=== PATIENT | male | born 1940 | race Caucasian/White ===

== ENCOUNTER 2021-03-17 09:16 | Emergency (ER) | payer MEDICARE ==
[~2021-03-17] VITALS: Ht 185.4 cm; Wt 108.8 kg
[~2021-03-17 09:16] MED LIST: ASPI-587 PO; ATOR10TA66 PO; ATRV10T PO; CLNZ.5T PO; CLPD75T PO; GLIM4TAB PO; GLYB5TAB6 PO; LISI10TA2 PO; MECL-106 PO; MTF500T PO; Meclizine Hcl PO; PRM25T PO; SENN1TAB76 PO; SERT50TA PO
--- NOTE | 2021-03-17 09:43 | ED General ---
General Chief Complaint: General Problems/Pain Stated Complaint: WEAKNESS Source of Information: Patient, EMS Exam Limitations: No Limitations History of Present Illness Date Seen by Provider: Mar 17, 2021 Time Seen by Provider: 09:15 Initial Comments Patient is a 80-year-old male who presents to the emergency department today with a chief complaint of bilateral lower extremity weakness. Patient states this started rather acutely a couple of days ago. He had accompanying low back pain. He states the back pain is worse with sitting in his chair. He has no back pain currently. He denies any numbness to his legs, denies loss of bowel or bladder function. He states he is able to void spontaneously. Denies any upper respiratory tract symptoms, no cough, no shortness of breath, no chest pain. No abdominal pain, nausea, vomiting or diarrhea. He does have daily medications for diabetes and takes Plavix, he cannot recall what that is for. He has no headache currently. He chews tobacco, does not smoke. Does not have any recent trauma. No recent infections. He is not Covid vaccinated. All other review of systems reviewed and negative except as stated. Timing/Duration: 1-2 Days Severity: Severe Associated Systoms: Weakness (bilateral lower extremity weakness) Allergies and Home Medications Allergies Coded Allergies: No Known Drug Allergies (Unverified , 01/22/10) Patient Home Medication List Home Medication List Reviewed: Yes Atorvastatin Calcium (Atorvastatin Calcium) 10 Mg Tablet, 10 MG PO HS, (Reported) Entered as Reported by: FOSTER COLES on 08/06/14 0944 Clonazepam (KlonoPIN TABLET) 0.5 Mg Tab, 0.5 MG PO BID Prescribed by: OJ BARRY on 08/15/142049 Clopidogrel Bisulfate (Plavix Tablet) 75 Mg Tab, 75 MG PO DAILY Prescribed by: OJ BARRY on 08/15/142049 Metformin Hcl (Metformin 500 Mg) 500 Mg Tab, 500 MG PO BID@,17 Prescribed by: OJ BARRY on 08/15/142049 Prednisone (Prednisone) 10 Mg Tab.ds.pk, 10 MG PO DAILY Prescribed by: ROBERT WANG on 03/17/21 1315 Promethazine Hcl (Phenergan Tab) 25 Mg Tab, 25 MG PO AC Prescribed by: TONJA HOLM on 08/17/14 1523 Senna (Senokot S Tablet) 1 Ea Tablet, 1 EA PO BID Prescribed by: OJ BARRY on 08/15/142049 Tramadol HCl (Tramadol HCl) 50 Mg Tablet, 50 MG PO Q6H PRN for PAIN Prescribed by: ROBERT WANG on 03/17/21 1316 Review of Systems Review of Systems Constitutional: see HPI EENTM: no symptoms reported Respiratory: no symptoms reported Cardiovascular: no symptoms reported Gastrointestinal: no symptoms reported Genitourinary: no symptoms reported Musculoskeletal: muscle weakness Skin: no symptoms reported Psychiatric/Neurological: No Symptoms Reported All Other Systems Reviewed Negative Unless Noted: Yes Past Zebufuu-Xnohoj-Zynetf Hx Patient Social History Tobacco Use?: Yes Smokeless Tobacco Frequency: Current Everyday User Use of E-Cig and/or Vaping dev: No Substance use?: No Alcohol Use?: No Pt feels they are or have been: No Immunizations Up To Date PED Vaccines UTD: No Influenza Vaccine Up-to-Date: No; Not Current First/Initial COVID19 Vaccinat: no Second COVID19 Vaccination Gurmeet: no Past Medical History Hypertension Reproductive Disorders: No Sexually Transmitted Disease: No HIV/AIDS: No Diabetes, Non-Insulin dep Glaucoma Family Medical History Patient reports no known family medical history. No Pertinent Family Hx Physical Exam Vital Signs Vital Signs - First Documented 03/17/21 09:16 Temp 37.5 Pulse 85 Resp 25 B/P (MAP) 117/43 (67) Pulse Ox 96 O2 Delivery Room Air Capillary Refill : Height, Weight, BMI Height: 6'0.00" Weight: 198lbs. 9.0oz. [id number]; BMI Method:Stated General Appearance: No Apparent Distress, WD/WN Eyes: Bilateral Eye Normal Inspection, Bilateral Eye PERRL, Bilateral Eye EOMI HEENT: Other (Significantly carious teeth, multiple missing teeth, lots of chewing tobacco noted in the oropharynx) Neck: Normal Inspection Respiratory: Lungs Clear, Normal Breath Sounds, No Accessory Muscle Use, No Respiratory Distress Cardiovascular: Regular Rate, Rhythm, Normal Peripheral Pulses Gastrointestinal: Normal Bowel Sounds, Non Tender, Soft Back: Normal Inspection, No Vertebral Tenderness Extremity: Normal Capillary Refill, Normal Inspection, Normal Range of Motion Neurologic/Psychiatric: Alert, Oriented x3, Normal 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 1+ patellar DTR on the right difficult to obtain the left. I am unable to get Achilles reflexes bilaterally. He is able to straight leg raise but he has a significant difficulty with flexing at the knees.) Skin: Normal Color, Warm/Dry Focused Exam Lactate Level 03/17/21 09:25: Lactic Acid Level 2.43*H 03/17/21 11:10: Lactic Acid Level 2.34*H Lactic Acid Level Laboratory Tests Test 03/17/21 09:25 03/17/21 11:10 Lactic Acid Level 2.43 MMOL/L (0.50-2.00) *H 2.34 MMOL/L (0.50-2.00) *H Progress/Results/Core Measures Suspected Sepsis SIRS Temperature: Pulse: Respiratory Rate: Laboratory Tests 03/17/21 09:25: White Blood Count 12.9H Blood Pressure / Mean: 03/17/21 09:25: Lactic Acid Level 2.43*H 03/17/21 11:10: Lactic Acid Level 2.34*H Laboratory Tests 03/17/21 09:25: Creatinine 0.97, Platelet Count 208, Total Bilirubin 1.0 03/17/21 11:10: INR Comment 1.1 Results/Orders Lab Results Laboratory Tests Test 03/17/21 09:25 03/17/21 11:10 Range/Units White Blood Count 12.9 H 4.3-11.0 10^3/uL Red Blood Count 3.51 L 4.30-5.52 10^6/uL Hemoglobin 12.3 L 13.3-17.7 g/dL Hematocrit 37 L 40-54 % Mean Corpuscular Volume 105 H 80-99 fL Mean Corpuscular Hemoglobin 35 H 25-34 pg Mean Corpuscular Hemoglobin Concent 34 32-36 g/dL Red Cell Distribution Width 16.5 H 10.0-14.5 % Platelet Count 208 130-400 10^3/uL Mean Platelet Volume 11.2 9.0-12.2 fL Immature Granulocyte % (Auto) 0 % Neutrophils (%) (Auto) 25 L 42-75 % Lymphocytes (%) (Auto) 69 H 12-44 % Monocytes (%) (Auto) 5 0-12 % Eosinophils (%) (Auto) 1 0-10 % Basophils (%) (Auto) 0 0-10 % Neutrophils # (Auto) 3.2 1.8-7.8 10^3/uL Lymphocytes # (Auto) 8.9 H 1.0-4.0 10^3/uL Monocytes # (Auto) 0.6 0.0-1.0 10^3/uL Eosinophils # (Auto) 0.1 0.0-0.3 10^3/uL Basophils # (Auto) 0.1 0.0-0.1 10^3/uL Immature Granulocyte # (Auto) 0.0 0.0-0.1 10^3/uL Percent Immature Platelet Fraction 5.2 0.0-7.6 % Erythrocyte Sedimentation Rate 14 0-30 MM/HR Sodium Level 131 L 135-145 MMOL/L Potassium Level 3.9 3.6-5.0 MMOL/L Chloride Level 99 98-107 MMOL/L Carbon Dioxide Level 18 L 21-32 MMOL/L Anion Gap 14 5-14 MMOL/L Blood Urea Nitrogen 6 L 7-18 MG/DL Creatinine 0.97 0.60-1.30 MG/DL Estimat Glomerular Filtration Rate 79 BUN/Creatinine Ratio 6 Glucose Level 88 70-105 MG/DL Lactic Acid Level 2.43 *H 2.34 *H 0.50-2.00 MMOL/L Calcium Level 8.4 L 8.5-10.1 MG/DL Corrected Calcium 8.2 L 8.5-10.1 MG/DL Total Bilirubin 1.0 0.1-1.0 MG/DL Aspartate Amino Transf (AST/SGOT) 35 H 5-34 U/L Alanine Aminotransferase (ALT/SGPT) 17 0-55 U/L Alkaline Phosphatase 74 40-136 U/L C-Reactive Protein High Sensitivity 0.74 H 0.00-0.50 MG/DL Total Protein 7.0 6.4-8.2 GM/DL Albumin 4.3 3.2-4.5 GM/DL Prothrombin Time 14.4 12.2-14.7 SEC INR Comment 1.1 0.8-1.4 Activated Partial Thromboplast Time 28 24-35 SEC My Orders Orders - ROBERT WANG MD Cbc With Automated Diff (03/17/21 09:38) Comprehensive Metabolic Panel (03/17/21 09:38) Blood Culture (03/17/21 09:38) Sputum Culture (03/17/21 09:38) Urinalysis (03/17/21 09:38) Urine Culture (03/17/21 09:38) Protime With Inr (03/17/21 09:38) Partial Thromboplastin Time (03/17/21 09:38) Chest 1 View, Ap/Pa Only (03/17/21 09:38) Ed Iv/Invasive Line Start (03/17/21 09:38) Ed Iv/Invasive Line Start (03/17/21 09:38) Vital Signs Adult Sepsis Patie Q15M (03/17/21 09:38) O2 (03/17/21 09:38) Remove Rings In Anticipation O (03/17/21 09:38) Lactic Acid Analyzer (03/17/21 09:38) Hs C Reactive Protein (03/17/21 09:38) Ct Lumbar Spine Wo (03/17/21 09:38) Ns Iv 1000 Ml (Sodium Chloride 0.9%) (03/17/21 11:01) Mri Lumbar Spine W/O Contrast (03/17/21 11:03) Erythrocyte Sedimentation Rate (03/17/21 11:30) Hs C Reactive Protein (03/17/21 11:30) Vital Signs/I&O 03/17/21 09:16 Temp 37.5 Pulse 85 Resp 25 B/P (MAP) 117/43 (67) Pulse Ox 96 O2 Delivery Room Air Capillary Refill : Progress Note #1: Time: 11:28 Progress Note Pathologist called about patient's peripheral smear - he has some atypical lymphs and a a high ANC. she recommends further studies on the blood to rule out a myeloproliferative disorder - at the very least a repeat CBC Progress Note #2: Time: 12:59 Progress Note Patient reevaluated, after MRI. He is able to dorsiflex his left foot quite strongly at this point strength is 5/5. Quadriceps muscle strength is 5/5 hamstrings 5/5. He is able to slightly move the right foot 1/5. Quadriceps 5/5 on the right hamstrings 4/5. Sensation remains intact. This is completely different than my initial evaluation of the patient. He has had no medications. I am uncertain as to if this is because of effort or time. He was able to turn in the bed, move to the side and stand with some effort. MRI of the lumbar spine shows severe multilevel spinal canal stenosis with impingement of the thecal sac. He also has bilateral foraminal stenosis that is graded as "severe". I do not think he has cauda equina syndrome. He is not incontinent nor does he have acute urinary retention. I am going to put him on a dose of steroids. I have advised him that he will need to monitor his blood sugar, he states he does not have a blood sugar monitor but he can get one from Dr. Weiss. Tramadol for pain in his back. I am going to give him some names of neurosurgeons in [place]. He will also need to follow-up with Dr. Weiss. Diagnostic Imaging Diagonstic Imaging: Xray, CT Comments [facility] [place] [place] NAME: DESHAWN POE [employer] REC#: [id number] PT STATUS: REG ER : 1940 PHYSICIAN: ROBERT WANG MD ADMIT DATE: 03/17/21/ER Draft Date of Exam:03/17/21 CHEST 1 VIEW, AP/PA ONLY Indication: Weakness, constipation. Comparison: 06/19/2013 Findings: Single view of the chest demonstrates cardiac enlargement and slight central vascular congestion. There is no pneumothorax or effusion. Osseous structures normal. Impression: Cardiac enlargement, slight central vascular congestion. Dictated on workstation # [id number] Dict: 03/17/21 1011 Trans: 03/17/21 1013 CV [id number] Interpreted by: DIANA SCHWARZ Electronically signed by: [facility] [place] NAME: DESHAWN POE [facility] REC#: [id number] PT STATUS: REG ER : 1940 PHYSICIAN: ROBERT WANG MD ADMIT DATE: 03/17/21/ER Draft Date of Exam:03/17/21 CT LUMBAR SPINE WO PROCEDURE: CT lumbar spine without contrast. TECHNIQUE: Multiple contiguous axial images were obtained through the lumbar spine without the use of intravenous contrast. Sagittal and coronal reformations were then performed. Auto Exposure Controls were utilized during the CT exam to meet ALARA standards for radiation dose reduction. INDICATION: Unable to ambulate, back pain, degenerative disc disease. COMPARISON: None FINDINGS: Alignment of lumbar column is normal. There is no subluxation or fracture. No osseous lesion is seen. There is no obvious inflammatory process. Multilevel degenerative disc disease and facet joint arthropathy is seen. There is multilevel foraminal and central canal stenosis. This is most severe at the L2-L3, L3-L4, and L4-L5 levels. Paraspinous soft tissues are unremarkable. There is atherosclerosis of the abdominal aorta without evidence of aneurysm. The SI joints are symmetric. IMPRESSION: 1. No traumatic malalignment or fracture. 2. No inflammatory process, mass or fluid collection. 3. Multilevel degenerative changes with above mentioned foraminal and central canal stenosis. Consider MRI for further evaluation. Dictated on workstation # [id number] Dict: 03/17/21 1012 Trans: 03/17/21 1015 CV [id number] Interpreted by: DIANA SCHWARZ Electronically signed by: LETTY [facility], [place] NAME: DESHAWN POE [facility] REC#: [id number] PT STATUS: REG ER : 1940 PHYSICIAN: ROBERT WANG MD ADMIT DATE: 03/17/21/ER Draft Date of Exam:03/17/21 MRI LUMBAR SPINE W/O CONTRAST PROCEDURE: MRI lumbar spine. TECHNIQUE: Multiplanar, multisequence MRI of the lumbar spine was performed without contrast. INDICATION: Bilateral leg weakness and low back pain. COMPARISON: Lumbar spine CT from earlier same day. FINDINGS: Straightening of the cervical spine is unchanged. There is approximately 5 mm of anterolisthesis of L5 on S1 due to severe facet arthritis. Modic type I endplate changes are present at L2-L3, L3-L4, and L4-L5. A small amount of Modic type I endplate changes are present at L5-S1. Distal thoracic cord is normal in appearance. Paravertebral musculature has mild fatty infiltration and is likely from disuse. L1-L2: Disc bulge with coexistent small central disc protrusion. Ligamentum flavum hypertrophy is present. Overall, this results in moderate spinal stenosis and moderate bilateral neural foraminal narrowing. L2-L3: Disc bulge with coexistent moderate-sized central disc extrusion that has 8 mm of inferior subligamentous extension. Facet osteoarthritis and ligamentum flavum hypertrophy is present. This results in severe mass effect on the thecal sac with extrathecal nerve root impingement. Severe right and moderate left neural foraminal narrowing. L3-L4: Disc bulge with coexistent small disc protrusion. Severe facet osteoarthritis and ligamentum flavum hypertrophy. Overall, this results in severe central spinal canal stenosis with compression of the nerve roots and severe bilateral neural foraminal narrowing. L4-L5: Central disc protrusion and intervertebral height loss result in mild central spinal canal stenosis and severe bilateral neural foraminal narrowing. L5-S1: Disc bulge and facet osteoarthritis result in severe bilateral neural foraminal narrowing. No central spinal canal narrowing. IMPRESSION: 1. No fracture within the lumbar spine. 2. Advanced multilevel degenerative changes are greatest at L2-L3 and L3-L4 where there is severe central spinal canal stenosis and compression of the nerves. 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 Decision time for Depature: 13:04 Referrals: MINESH WEISS DO (PCP/Family) Primary Care Physician Patient Instructions: Spinal Stenosis (DC) Add. Discharge Instructions: I have prescribed you some pain medication for your back, take this only as needed, every 6 hours with food. It may make you sleepy. I have prescribed you a steroid dose pack to help with your weakness. take this as directed . Steroids can increase your blood sugar dramatically. You will need to check your sugars regularly, call Dr Weiss's office about getting a monitor. You also need to [id number] with a back surgeon for further evaluation of your leg weakness which I believe is coming from compressed nerves in your spine. The [facility] is an option in [place] and Florencio are Spine doctors there. [address] [place] [address] [address] [address] [address] Weiss can also make a referral for you. You will need to have a repeat blood count done in the next 1-2 weeks to check your blood levels, as one of your counts was out of range slightly. Come back to the Emergency Department if you have sudden worsening pain in your back/legs, numbness, loss of bowel or bladder control or any other emergent, concerning symptoms. Scripts Prednisone (Prednisone) 10 Mg Tab.ds.pk 10 MG PO DAILY, #42 EA Take 6 tabs(60mg)daily,decrease by 1 tab(10mg)every other day. Prov: ROBERT WANG MD 03/17/21 Tramadol HCl (Tramadol HCl) 50 Mg Tablet 50 MG PO Q6H PRN for PAIN, #20 TAB 0 Refills Prov: ROBERT WANG MD 03/17/21 ROBERT WANG MD Mar 17, 2021 09:43
[2021-03-17 10:13] LABS: BASOPHILS # (AUTO) 0.1 10^3/uL (0.0-0.1); BASOPHILS % (AUTO) 0 % (0-10); EOSINOPHILS # (AUTO) 0.1 10^3/uL (0.0-0.3); EOSINOPHILS % (AUTO) 1 % (0-10); HEMATOCRIT 37 % (40-54); HEMOGLOBIN 12.3 g/dL (13.3-17.7); LYMPHOCYTES # (AUTO) 8.9 10^3/uL (1.0-4.0); LYMPHOCYTES % (AUTO) 69 % (12-44); MEAN CORPUSCULAR HEMOGLOBIN 35 pg (25-34); MEAN CORPUSCULAR HGB CONC 34 g/dL (32-36); MEAN CORPUSCULAR VOLUME 105 fL (80-99); MEAN PLATELET VOLUME 11.2 fL (9.0-12.2); MONOCYTES # (AUTO) 0.6 10^3/uL (0.0-1.0); MONOCYTES % (AUTO) 5 % (0-12); NEUTROPHILS # (AUTO) 3.2 10^3/uL (1.8-7.8); NEUTROPHILS % (AUTO) 25 % (42-75); PLATELET COUNT 208 10^3/uL (130-400); WHITE BLOOD COUNT 12.9 10^3/uL (4.3-11.0)
--- NOTE | 2021-03-17 10:13 | Diagnostic Imaging Report ---
Indication: Weakness, constipation. Comparison: 06/19/2013 Findings: Single view of the chest demonstrates cardiac enlargement and slight central vascular congestion. There is no pneumothorax or effusion. Osseous structures normal. Impression: Cardiac enlargement, slight central vascular congestion. Dictated by: Dictated on workstation # [id number]
[2021-03-17 10:16] LABS: ALBUMIN 4.3 GM/DL (3.2-4.5); POTASSIUM 3.9 MMOL/L (3.6-5.0)
--- NOTE | 2021-03-17 10:16 | Diagnostic Imaging Report ---
PROCEDURE: CT lumbar spine without contrast. TECHNIQUE: Multiple contiguous axial images were obtained through the lumbar spine without the use of intravenous contrast. Sagittal and coronal reformations were then performed. Auto Exposure Controls were utilized during the CT exam to meet ALARA standards for radiation dose reduction. INDICATION: Unable to ambulate, back pain, degenerative disc disease. COMPARISON: None FINDINGS: Alignment of lumbar column is normal. There is no subluxation or fracture. No osseous lesion is seen. There is no obvious inflammatory process. Multilevel degenerative disc disease and facet joint arthropathy is seen. There is multilevel foraminal and central canal stenosis. This is most severe at the L2-L3, L3-L4, and L4-L5 levels. Paraspinous soft tissues are unremarkable. There is atherosclerosis of the abdominal aorta without evidence of aneurysm. The SI joints are symmetric. IMPRESSION: 1. No traumatic malalignment or fracture. 2. No inflammatory process, mass or fluid collection. 3. Multilevel degenerative changes with above mentioned foraminal and central canal stenosis. Consider MRI for further evaluation. Dictated by: Dictated on workstation # [id number]
[2021-03-17 10:17] LABS: CALCIUM 8.4 MG/DL (8.5-10.1)
[2021-03-17 10:22] LABS: CREATININE SERUM 0.97 MG/DL (0.60-1.30)
[2021-03-17] MEDS ORDERED: NS IV 1000 ML 1,000 ML IV STA (11:01)
[2021-03-17 11:33] LABS: INR 1.1 (0.8-1.4); PROTHROMBIN TIME PATIENT 14.4 SEC (12.2-14.7)
--- NOTE | 2021-03-17 12:15 | Diagnostic Imaging Report ---
PROCEDURE: MRI lumbar spine. TECHNIQUE: Multiplanar, multisequence MRI of the lumbar spine was performed without contrast. INDICATION: Bilateral leg weakness and low back pain. COMPARISON: Lumbar spine CT from earlier same day. FINDINGS: Straightening of the cervical spine is unchanged. There is approximately 5 mm of anterolisthesis of L5 on S1 due to severe facet arthritis. Modic type I endplate changes are present at L2-L3, L3-L4, and L4-L5. A small amount of Modic type I endplate changes are present at L5-S1. Distal thoracic cord is normal in appearance. Paravertebral musculature has mild fatty infiltration and is likely from disuse. L1-L2: Disc bulge with coexistent small central disc protrusion. Ligamentum flavum hypertrophy is present. Overall, this results in moderate spinal stenosis and moderate bilateral neural foraminal narrowing. L2-L3: Disc bulge with coexistent moderate-sized central disc extrusion that has 8 mm of inferior subligamentous extension. Facet osteoarthritis and ligamentum flavum hypertrophy is present. This results in severe mass effect on the thecal sac with extrathecal nerve root impingement. Severe right and moderate left neural foraminal narrowing. L3-L4: Disc bulge with coexistent small disc protrusion. Severe facet osteoarthritis and ligamentum flavum hypertrophy. Overall, this results in severe central spinal canal stenosis with compression of the nerve roots and severe bilateral neural foraminal narrowing. L4-L5: Central disc protrusion and intervertebral height loss result in mild central spinal canal stenosis and severe bilateral neural foraminal narrowing. L5-S1: Disc bulge and facet osteoarthritis result in severe bilateral neural foraminal narrowing. No central spinal canal narrowing. IMPRESSION: 1. No fracture within the lumbar spine. 2. Advanced multilevel degenerative changes are greatest at L2-L3 and L3-L4 where there is severe central spinal canal stenosis and compression of the nerves. Dictated by: Dictated on workstation # [id number]
[2021-03-17] MEDS ORDERED: TRM50T PO (13:15)
[2021-03-17] MEDS ORDERED: PRED10TA22 PO (13:15)
[2021-03-17 13:35] VITALS: BP 126/68
== END 2021-03-17 13:35 | disposition other institution (70) ==
LOC: EDUNIT# 09:16 → ER 09:24
DX: M48.061 Spinal stenosis, lumbar region without neurogenic claudication (principal); R53.1 Weakness; R53.81 Other malaise; E11.9 Type 2 diabetes mellitus without complications; D72.820 Lymphocytosis (symptomatic); I10 Essential (primary) hypertension; F17.290 Nicotine dependence, other tobacco product, uncomplicated; Z79.84 Long term (current) use of oral hypoglycemic drugs; Z79.01 Long term (current) use of anticoagulants
CPT/HCPCS: 36415; 71045; 72131; 72148; 80053; 83605; 85025; 85610; 85652; 85730; 86141; 87040

== ENCOUNTER 2021-03-28 10:42 | Emergency (ER) | payer MEDICARE ==
[~2021-03-28] VITALS: Ht 178 cm; Wt 108.8 kg
[~2021-03-28 10:42] MED LIST changes: +PRED10TA22 PO; +TRM50T PO
[2021-03-28] MEDS ORDERED: LACTATED RINGERS 1,000 ML IV STA (10:51)
--- NOTE | 2021-03-28 10:58 | ED Back Pain ---
General Chief Complaint: Back Problems Stated Complaint: COVID Nursing Triage Note: PT TO [facility] BY [facility] WITH CC OF BACK PAIN, DAUGHTER COVID POSITIVE AND LIVES WITH HER. DAUGHTER STATED HE HAS BEEN COUGHING BUT PT HAS NOT COUGHED AT TRIAGE, JUST COMPLAINS HE CAN'T WALK BECAUSE OF BACK PAIN, 95% ON ROOM AIR Source of Information: Patient, EMS Exam Limitations: No Limitations History of Present Illness Date Seen by Provider: Mar 28, 2021 Time Seen by Provider: 10:33 Initial Comments 80-year-old male with past medical history of chronic back pain coming in via EMS from home due to fever and back pain. His daughter lives with him and tested positive for Covid 2 days ago. He began feeling febrile at that time and has had a cough since then as well. Symptoms are mild. 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 He has been getting around with a walker and the assistance of his daughter which is unchanged. He is able to make it to the bathroom without any bowel or bladder issues. Denies any numbness anywhere including in his perineum. Is tolerating p.o. Otherwise denying any chest pain, shortness of breath, focal weakness, numbness, abdominal pain, nausea, vomiting, diarrhea, rash, trauma such as a fall, or any other concerns. Allergies and Home Medications Allergies Coded Allergies: No Known Drug Allergies (Unverified , 01/22/10) Patient Home Medication List Home Medication List Reviewed: Yes Atorvastatin Calcium (Atorvastatin Calcium) 10 Mg Tablet, 10 MG PO HS, (Reported) Entered as Reported by: FOSTER COLES on 08/06/14 0944 Clonazepam (KlonoPIN TABLET) 0.5 Mg Tab, 0.5 MG PO BID Prescribed by: OJ BARRY on 08/15/142049 Clopidogrel Bisulfate (Plavix Tablet) 75 Mg Tab, 75 MG PO DAILY Prescribed by: OJ BARRY on 08/15/142049 Metformin Hcl (Metformin 500 Mg) 500 Mg Tab, 500 MG PO BID@ Prescribed by: OJ BARRY on 08/15/142049 Prednisone (Prednisone) 10 Mg Tab.ds.pk, 10 MG PO DAILY Prescribed by: ROBERT WANG on 03/17/21 131 Promethazine Hcl (Phenergan Tab) 25 Mg Tab, 25 MG PO AC Prescribed by: TONJA HOLM on 08/17/14 152 Senna (Senokot S Tablet) 1 Ea Tablet, 1 EA PO BID Prescribed by: OJ BARRY on 08/15/142049 Tramadol HCl (Tramadol HCl) 50 Mg Tablet, 50 MG PO Q6H PRN for PAIN Prescribed by: ROBERT WANG on 03/17/21 131 Review of Systems Constitutional: chills, fever EENTM: No blurred vision Respiratory: cough; No short of breath Cardiovascular: No chest pain Gastrointestinal: No abdominal pain, No diarrhea, No nausea, No vomiting Musculoskeletal: back pain Skin: no symptoms reported Psychiatric/Neurological: No Symptoms Reported All Other Systems Reviewed Negative Unless Noted: Yes Past Otdttzx-Fdfojm-Uydwjm Hx Patient Social History Substance use?: No Immunizations Up To Date PED Vaccines UTD: No First/Initial COVID19 Vaccinat: no Second COVID19 Vaccination Gurmeet: no Past Medical History Surgeries: Yes (patient said he doesn't remember what surgery he had) Hypertension Reproductive Disorders: No Sexually Transmitted Disease: No HIV/AIDS: No Diabetes, Non-Insulin dep Glaucoma Family Medical History Patient reports no known family medical history. No Pertinent Family Hx Physical Exam Vital Signs Vital Signs - First Documented 03/28/21 10:46 Temp 38.2 Pulse 82 Resp 20 B/P (MAP) 136/67 (90) Pulse Ox 95 O2 Delivery Room Air Capillary Refill : Height, Weight, BMI Height: 6'0.00" Weight: 198lbs. 9.0oz. 90.080380hf; 34.00 BMI Method:Stated General Appearance: No Apparent Distress, WD/WN HEENT: PERRL/EOMI, Normal ENT Inspection, Pharynx Normal Neck: Full Range of Motion, Normal Inspection, Non Tender, Supple Cardiovascular: Regular Rate, Rhythm, No Edema, Normal Peripheral Pulses Respiratory: Chest Non Tender, Lungs Clear, Normal Breath Sounds, No Accessory Muscle Use, No Respiratory Distress Gastrointestinal: Normal Bowel Sounds, Non Tender, Soft; No Distended, No Guarding Back: Normal Inspection, No CVA Tenderness, No Vertebral Tenderness, Other (paraspinal tenderness in his lower back) Extremity: Normal Capillary Refill, Normal Inspection, Normal Range of Motion, Non Tender, No Calf Tenderness, No Pedal Edema Neurologic/Psychiatric: Alert, Oriented x3, No Motor/Sensory Deficits, Normal Mood/Affect, Other (5/5 strength with hip flexion/extension, knee flexion/extension, 5/5 L foot dorsiflexion and 2/5 on the right) Skin: Normal Color, Warm/Dry Lymphatic: No Adenopathy Progress/Results/Core Measures Results/Orders Lab Results Laboratory Tests Test 03/28/21 11:00 03/28/21 12:17 Range/Units White Blood Count 10.5 4.3-11.0 10^3/uL Red Blood Count 3.63 L 4.30-5.52 10^6/uL Hemoglobin 12.6 L 13.3-17.7 g/dL Hematocrit 37 L 40-54 % Mean Corpuscular Volume 101 H 80-99 fL Mean Corpuscular Hemoglobin 35 H 25-34 pg Mean Corpuscular Hemoglobin Concent 35 32-36 g/dL Red Cell Distribution Width 15.8 H 10.0-14.5 % Platelet Count 197 130-400 10^3/uL Mean Platelet Volume 10.1 9.0-12.2 fL Immature Granulocyte % (Auto) 1 % Neutrophils (%) (Auto) 45 42-75 % Lymphocytes (%) (Auto) 39 12-44 % Monocytes (%) (Auto) 14 H 0-12 % Eosinophils (%) (Auto) 1 0-10 % Basophils (%) (Auto) 0 0-10 % Neutrophils # (Auto) 4.8 1.8-7.8 10^3/uL Lymphocytes # (Auto) 4.1 H 1.0-4.0 10^3/uL Monocytes # (Auto) 1.5 H 0.0-1.0 10^3/uL Eosinophils # (Auto) 0.1 0.0-0.3 10^3/uL Basophils # (Auto) 0.0 0.0-0.1 10^3/uL Immature Granulocyte # (Auto) 0.1 0.0-0.1 10^3/uL Sodium Level 128 L 135-145 MMOL/L Potassium Level 3.7 3.6-5.0 MMOL/L Chloride Level 96 L 98-107 MMOL/L Carbon Dioxide Level 19 L 21-32 MMOL/L Anion Gap 13 5-14 MMOL/L Blood Urea Nitrogen 10 7-18 MG/DL Creatinine 0.82 0.60-1.30 MG/DL Estimat Glomerular Filtration Rate 89 BUN/Creatinine Ratio 12 Glucose Level 51 *L 70-105 MG/DL Calcium Level 8.1 L 8.5-10.1 MG/DL Corrected Calcium 8.2 L 8.5-10.1 MG/DL Total Bilirubin 1.6 H 0.1-1.0 MG/DL Aspartate Amino Transf (AST/SGOT) 40 H 5-34 U/L Alanine Aminotransferase (ALT/SGPT) 17 0-55 U/L Alkaline Phosphatase 63 40-136 U/L Troponin I < 0.028 <0.028 NG/ML B-Type Natriuretic Peptide 24.0 <100.0 PG/ML Total Protein 6.9 6.4-8.2 GM/DL Albumin 3.9 3.2-4.5 GM/DL Influenza Type A (RT-PCR) Not Detected Not Detecte Influenza Type B (RT-PCR) Not Detected Not Detecte SARS-CoV-2 RNA (RT-PCR) Detected H Not Detecte Glucometer 126 H 70-110 MG/DL My Orders Orders - CLAUS WYNN MD Bnp [place] (03/28/21 10:51) Cbc With Automated Diff (03/28/21 10:51) Comprehensive Metabolic Panel (03/28/21 10:51) Troponin I [place] (03/28/21 10:51) Influenza A And B By Pcr (03/28/21 10:51) Chest 1 View, Ap/Pa Only (03/28/21 10:51) Covid 19 Inhouse Test (03/28/21 10:51) Lactated Ringers (Lr 1000 Ml Iv Solution (03/28/21 10:51) Ed Iv/Invasive Line Start (03/28/21 10:51) Acetaminophen Tablet (Tylenol Tablet) (03/28/21 11:00) General/Regular (03/28/21 Lunch) D50w (Emergency) Syringe (Dextrose 50% 5 (03/28/21 11:45) Accucheck Stat ONCE (03/28/21 12:10) Tramadol Tablet (Ultram Tablet) (03/28/21 12:00) Medications Given in ED Current Medications Medications Dose Ordered Sig/Alhaji Route Start Time Stop Time Status Last Admin Dose Admin Acetaminophen 1,000 mg ONCE ONCE PO 03/28/21 11:00 03/28/21 11:01 DC 03/28/21 11:16 1,000 MG Dextrose 50 ml ONCE ONCE IV 03/28/21 11:45 03/28/21 11:46 DC 03/28/21 11:42 50 ML Tramadol HCl 50 mg ONCE ONCE PO 03/28/21 12:00 03/28/21 12:01 DC 03/28/21 12:18 50 MG Vital Signs/I&O 03/28/21 03/28/21 10:46 11:16 Temp 38.2 38.2 Pulse 82 Resp 20 B/P (MAP) 136/67 (90) Pulse Ox 95 O2 Delivery Room Air Blood Pressure Mean: 90 Progress Progress Note : Progress Note 80-year-old male with above history coming in due to fever for the past couple days, general weakness, and chronic low back pain. ABCs were intact and vitals were stable on presentation although he is febrile. He does have a positive contact with his daughter living with him having COVID. He was tested and was positive as well. He is not hypoxic and his chest x-ray is clear, lungs are clear on exam as well. Given Tylenol for his fever. White blood cell count is normal, creatinine normal, sodium slightly low at 128 from 131 about 11 days ago. Glucose is 51 so he was given D50 IV as well as food. In regards to this, he says he really has not eaten hardly anything in the past 2 days, he said he had essentially 1 cookie today and has not had any protein in the most 2 days. He says he believes he is diabetic and takes a pill but is unsure what pill that is. Repeat glucose is appropriately elevated. Patient feeling somewhat better. Vitals remained stable. He did tolerate p.o. and I told him to continue to check his glucose today. It made sense that it was low given he really has not had anything to eat in 2 days. I did order him a lunch tray and he ate a turkey sandwich which should help keep his sugar elevated beyond the D50 he received. I believe he is stable for discharge with outpatient follow-up given he lives with his daughter who is also COVID positive and continues to take care of him. He was sent home with strict return precautions. I once again recommended he call the spinal surgeon from [place] to schedule an appointment as soon as possible. On reassessment prior to him leaving, the patient was saying he feels "so much better". Likely related to his fever going down. Diagnostic Imaging Diagonstic Imaging: Xray Plain Films/CT/US/NM/MRI: chest Comments NAME: DESHAWN POE MED REC#: [id number] PT STATUS: REG ER : 1940 PHYSICIAN: CLAUS WYNN MD ADMIT DATE: 03/28/21/ER Draft Date of Exam:03/28/21 CHEST 1 VIEW, AP/PA ONLY INDICATION: Covid positive room mate, weakness, fever. TECHNIQUE: Single view chest 11:09 AM. CORRELATION STUDY: 03/17/2021 FINDINGS: The heart size, mediastinal configuration and pulmonary vascularity are within normal limits. The lungs are slightly hyperinflated but overall are clear with no consolidating infiltrate. There is no significant effusion or pneumothorax. Cervical thoracic spinal fixation hardware. IMPRESSION: 1. Negative for acute abnormality of the chest. Dictated on workstation # [id number] Dict: 03/28/21 1136 Trans: 03/28/21 1137 DO [id number] Interpreted by: ROGER BAKER DO Electronically signed by: Departure Impression Primary Impression: COVID-19 Additional Impressions: Hypoglycemia Back pain Qualified Codes: M54.50 - Low back pain, unspecified; G89.29 - Other chronic pain Disposition: 01 HOME, SELF-CARE Condition: Stable Departure-Patient Inst. Decision time for Depature: 12:41 Referrals: MINESH WEISS DO (PCP/Family) Primary Care Physician Patient Instructions: COVID-19 (DC), Low Blood Sugar in People With Diabetes Add. Discharge Instructions: Please be sure to eat 3 meals a day with a good protein source in each meal because your blood sugar was low. Please take your blood sugar at least 3 times today to be sure it continues to be a normal number. Signs of low blood sugar include worsening weakness and fatigue, although these can be symptoms of COVID which you are positive as well. Take tylenol 1000mg every 6-8 hours for fever and body aches related to COVID. Come back to the ER if you start feeling very short of breath or have other concerns. Please call the spinal surgeon in [place] to schedule an appointment as soon as possible given your low back pain with your spinal stenosis seen on the MRI that was done here 11 days ago. The [facility] is an option in [place] - [place] Nichols and Florencio are Spine doctors there. Call today to make an appointment DEEPAK. [address] [address] [address] Weiss can also make a referral for you. CLAUS WYNN MD Mar 28, 2021 10:58
[2021-03-28] MEDS ORDERED: ACETAMINOPHEN 500 MG TAB (TYLENOL) PO ONE (11:00)
[2021-03-28 11:11] LABS: BASOPHILS % (AUTO) 0 % (0-10); EOSINOPHILS # (AUTO) 0.1 10^3/uL (0.0-0.3); EOSINOPHILS % (AUTO) 1 % (0-10); HEMATOCRIT 37 % (40-54); HEMOGLOBIN 12.6 g/dL (13.3-17.7); LYMPHOCYTES # (AUTO) 4.1 10^3/uL (1.0-4.0); LYMPHOCYTES % (AUTO) 39 % (12-44); MEAN CORPUSCULAR HEMOGLOBIN 35 pg (25-34); MEAN CORPUSCULAR HGB CONC 35 g/dL (32-36); MEAN CORPUSCULAR VOLUME 101 fL (80-99); MEAN PLATELET VOLUME 10.1 fL (9.0-12.2); MONOCYTES # (AUTO) 1.5 10^3/uL (0.0-1.0); MONOCYTES % (AUTO) 14 % (0-12); NEUTROPHILS # (AUTO) 4.8 10^3/uL (1.8-7.8); NEUTROPHILS % (AUTO) 45 % (42-75); PLATELET COUNT 197 10^3/uL (130-400); WHITE BLOOD COUNT 10.5 10^3/uL (4.3-11.0)
[2021-03-28 11:23] LABS: ALBUMIN 3.9 GM/DL (3.2-4.5)
[2021-03-28 11:24] LABS: CHLORIDE 96 MMOL/L (98-107); POTASSIUM 3.7 MMOL/L (3.6-5.0); SODIUM 128 MMOL/L (135-145)
[2021-03-28 11:25] LABS: CALCIUM 8.1 MG/DL (8.5-10.1)
[2021-03-28 11:26] LABS: TOTAL PROTEIN 6.9 GM/DL (6.4-8.2)
[2021-03-28 11:27] LABS: CARBON DIOXIDE 19 MMOL/L (21-32)
[2021-03-28 11:28] LABS: BILIRUBIN,TOTAL 1.6 MG/DL (0.1-1.0)
[2021-03-28 11:29] LABS: ALKALINE PHOSPHATASE 63 U/L (40-136)
[2021-03-28 11:30] LABS: CREATININE SERUM 0.82 MG/DL (0.60-1.30); GFR ESTIMATED 89
[2021-03-28 11:31] LABS: BUN/CREATININE RATIO 12
[2021-03-28 11:33] LABS: ALANINE AMINOTRANSFERASE 17 U/L (0-55)
[2021-03-28 11:34] LABS: GLUCOSE 51 MG/DL (70-105)
--- NOTE | 2021-03-28 11:37 | Diagnostic Imaging Report ---
INDICATION: Covid positive room mate, weakness, fever. TECHNIQUE: Single view chest 11:09 AM. CORRELATION STUDY: 03/17/2021 FINDINGS: The heart size, mediastinal configuration and pulmonary vascularity are within normal limits. The lungs are slightly hyperinflated but overall are clear with no consolidating infiltrate. There is no significant effusion or pneumothorax. Cervical thoracic spinal fixation hardware. IMPRESSION: 1. Negative for acute abnormality of the chest. Dictated by: Dictated on workstation # [id number]
[2021-03-28] MEDS ORDERED: DEXTROSE 50% 50 ML (IMS) SYR IV ONE (11:45)
[2021-03-28 14:39] VITALS: BP 99/62
== END 2021-03-28 14:35 | disposition home or self-care (01) ==
LOC: ER 10:42
DX: U07.1 COVID-19 (principal); E11.649 Type 2 diabetes mellitus with hypoglycemia without coma; M54.50 Low back pain, unspecified; I10 Essential (primary) hypertension; Z79.84 Long term (current) use of oral hypoglycemic drugs; Z79.01 Long term (current) use of anticoagulants
CPT/HCPCS: 36415; 71045; 80053; 82947; 83880; 84484; 85025; 87636

== ENCOUNTER 2021-04-03 21:38 | Inpatient (IN) | payer MEDICARE ==
[~2021-04-03] VITALS: Ht 188 cm; Wt 88.4 kg
--- NOTE | 2021-04-03 21:46 | ED General ---
General Chief Complaint: General Problems/Pain Stated Complaint: WEAKNESS Source of Information: Patient Exam Limitations: No Limitations History of Present Illness Date Seen by Provider: Apr 03, 2021 Time Seen by Provider: 21:44 Initial Comments To ER by EMS from home with reports of cough and general weakness. This will be his third visit this month for general weakness. He tested positive for Covid during his last visit. Today would be day 8 of Covid symptoms. He does feel short of breath. He has some chronic low back pain which is causing weakness. He has been told twice to call spine surgery at [place] for follow-up as he has had MRI done here. He states that he still has not called them for an appointment. Timing/Duration: 1-2 Days Severity: Moderate Associated Systoms: Cough, Nausea/Vomiting, Weakness Allergies and Home Medications Allergies Coded Allergies: No Known Drug Allergies (Unverified , 01/22/10) Patient Home Medication List Home Medication List Reviewed: Yes Atorvastatin Calcium (Atorvastatin Calcium) 10 Mg Tablet, 10 MG PO HS, (Reported) Entered as Reported by: FOSTER COLES on 08/06/14 0944 Clonazepam (KlonoPIN TABLET) 0.5 Mg Tab, 0.5 MG PO BID Prescribed by: OJ BARRY on 08/15/142049 Clopidogrel Bisulfate (Plavix Tablet) 75 Mg Tab, 75 MG PO DAILY Prescribed by: OJ BARRY on 08/15/142049 Metformin Hcl (Metformin 500 Mg) 500 Mg Tab, 500 MG PO BID@07,17 Prescribed by: OJ BARRY on 08/15/142049 Prednisone (Prednisone) 10 Mg Tab.ds.pk, 10 MG PO DAILY Prescribed by: ROBERT WANG on 03/17/21 1315 Promethazine Hcl (Phenergan Tab) 25 Mg Tab, 25 MG PO AC Prescribed by: TONJA HOLM on 08/17/14 1523 Senna (Senokot S Tablet) 1 Ea Tablet, 1 EA PO BID Prescribed by: OJ BARRY on 08/15/142049 Tramadol HCl (Tramadol HCl) 50 Mg Tablet, 50 MG PO Q6H PRN for PAIN Prescribed by: ROBERT WANG on 03/17/21 1316 Review of Systems Review of Systems Constitutional: see HPI EENTM: see HPI Respiratory: see HPI, cough Cardiovascular: no symptoms reported Genitourinary: no symptoms reported Musculoskeletal: see HPI Skin: no symptoms reported Psychiatric/Neurological: No Symptoms Reported Past Vffjngk-Dvyabl-Evhtay Hx Immunizations Up To Date PED Vaccines UTD: No First/Initial COVID19 Vaccinat: no Second COVID19 Vaccination Gurmeet: no Third COVID19 Vaccination Date: no Past Medical History Surgery/Hospitalization HX: HX OF BACK PAIN Surgeries: Yes (patient said he doesn't remember what surgery he had) Hypertension Reproductive Disorders: No Sexually Transmitted Disease: No HIV/AIDS: No Diabetes, Non-Insulin dep Glaucoma Family Medical History Patient reports no known family medical history. No Pertinent Family Hx Physical Exam Vital Signs Vital Signs - First Documented 04/03/21 21:38 Temp 36.1 Pulse 110 Resp 18 B/P (MAP) 127/78 (94) Pulse Ox 97 O2 Delivery Room Air Capillary Refill : Height, Weight, BMI Height: 6'0.00" Weight: 198lbs. 9.0oz. 90.607836ud; 34.00 BMI Method:Stated General Appearance: No Apparent Distress, Chronically ill, Other (His oxygen saturation is 95 to 99% on room air. He is tachycardic with a heart rate of 110. Alert and oriented little hard of hearing) Neck: Full Range of Motion, Normal Inspection Respiratory: No Accessory Muscle Use, No Respiratory Distress Cardiovascular: Regular Rate, Rhythm, Normal Peripheral Pulses Gastrointestinal: Non Tender, Soft Back: Other (Erythema, tenderness with about a stage II sacral pressure ulcer.) Extremity: Normal Capillary Refill, Normal Inspection Neurologic/Psychiatric: Alert, Oriented x3 Skin: Normal Color, Warm/Dry Focused Exam Sepsis Stage: Severe Sepsis Lactate Level 04/03/21 22:20: Lactic Acid Level 5.19*H Time of Focused Exam: 22:58 Respiratory: Crackles Cardiovascular: Regular Rate, Rhythm, Normal Peripheral Pulses Capillary Refill: NONE Skin: normal color, warm/dry Lactic Acid Level Laboratory Tests Test 04/03/21 22:20 Lactic Acid Level 5.19 MMOL/L (0.50-2.00) *H Within 3hrs of presentation: Admin fluids, Admin 30ml/kg IBW due to BMI>30, Admin ABX, Blood cultures prior to ABX's, Focus exam, Lactate level Progress/Results/Core Measures Suspected Sepsis SIRS Temperature: Pulse: Respiratory Rate: Laboratory Tests 04/03/21 22:00: White Blood Count 18.3H Blood Pressure / Mean: 04/03/21 22:20: Lactic Acid Level 5.19*H Laboratory Tests 04/03/21 22:00: Creatinine 0.81, INR Comment 1.3, Platelet Count 216, Total Bilirubin 2.0H Results/Orders Lab Results Laboratory Tests Test 04/03/21 22:00 04/03/21 22:20 Range/Units White Blood Count 18.3 H 4.3-11.0 10^3/uL Red Blood Count 3.41 L 4.30-5.52 10^6/uL Hemoglobin 11.7 L 13.3-17.7 g/dL Hematocrit 34 L 40-54 % Mean Corpuscular Volume 101 H 80-99 fL Mean Corpuscular Hemoglobin 34 25-34 pg Mean Corpuscular Hemoglobin Concent 34 32-36 g/dL Red Cell Distribution Width 15.7 H 10.0-14.5 % Platelet Count 216 130-400 10^3/uL Mean Platelet Volume 12.0 9.0-12.2 fL Immature Granulocyte % (Auto) 1 % Neutrophils (%) (Auto) 57 42-75 % Lymphocytes (%) (Auto) 29 12-44 % Monocytes (%) (Auto) 13 H 0-12 % Eosinophils (%) (Auto) 0 0-10 % Basophils (%) (Auto) 0 0-10 % Neutrophils # (Auto) 10.4 H 1.8-7.8 10^3/uL Lymphocytes # (Auto) 5.3 H 1.0-4.0 10^3/uL Monocytes # (Auto) 2.4 H 0.0-1.0 10^3/uL Eosinophils # (Auto) 0.1 0.0-0.3 10^3/uL Basophils # (Auto) 0.1 0.0-0.1 10^3/uL Immature Granulocyte # (Auto) 0.2 H 0.0-0.1 10^3/uL Neutrophils % (Manual) 61 % Lymphocytes % (Manual) 18 % Monocytes % (Manual) 10 % Metamyelocytes % 3 % Band Neutrophils 1 % Atypical Lymphocytes 2 % Reactive Lymphocytes 1 % Blast Cells 4 % Smudge Cells SLIGHT Polychromasia SLIGHT Poikilocytosis SLIGHT Anisocytosis SLIGHT Microcytosis SLIGHT Prothrombin Time 16.4 H 12.2-14.7 SEC INR Comment 1.3 0.8-1.4 Sodium Level 130 L 135-145 MMOL/L Potassium Level 3.3 L 3.6-5.0 MMOL/L Chloride Level 94 L 98-107 MMOL/L Carbon Dioxide Level 17 L 21-32 MMOL/L Anion Gap 19 H 5-14 MMOL/L Blood Urea Nitrogen 13 7-18 MG/DL Creatinine 0.81 0.60-1.30 MG/DL Estimat Glomerular Filtration Rate 89 BUN/Creatinine Ratio 16 Glucose Level 156 H 70-105 MG/DL Calcium Level 8.4 L 8.5-10.1 MG/DL Corrected Calcium 8.7 8.5-10.1 MG/DL Total Bilirubin 2.0 H 0.1-1.0 MG/DL Aspartate Amino Transf (AST/SGOT) 37 H 5-34 U/L Alanine Aminotransferase (ALT/SGPT) 15 0-55 U/L Alkaline Phosphatase 64 40-136 U/L B-Type Natriuretic Peptide 82.5 <100.0 PG/ML Total Protein 6.8 6.4-8.2 GM/DL Albumin 3.6 3.2-4.5 GM/DL Procalcitonin 0.23 H <0.10 NG/ML Lactic Acid Level 5.19 *H 0.50-2.00 MMOL/L My Orders Orders - DALIA ROLDAN APRN Chest 1 View, Ap/Pa Only (04/03/21 21:44) Cbc With Automated Diff (04/03/21 21:44) Comprehensive Metabolic Panel (04/03/21 21:44) Protime With Inr (04/03/21 21:44) Bnp [place] (04/03/21 21:44) Procalcitonin (Pct) (04/03/21 21:44) Ed Iv/Invasive Line Start (04/03/21 21:44) Lactated Ringers (Lr 1000 Ml Iv Solution (04/03/21 22:00) Ibuprofen Tablet (Motrin Tablet) (04/03/21 22:00) Ua Culture If Indicated (04/03/21 22:01) Manual Differential (04/03/21 22:00) Blood Culture (04/03/21 22:13) Lactic Acid Analyzer (04/03/21 22:13) Piperacillin Sodium/Tazobactam (Zosyn Vi (04/03/21 22:15) Medications Given in ED Current Medications Medications Dose Ordered Sig/Lahaji Route Start Time Stop Time Status Last Admin Dose Admin Ibuprofen 800 mg ONCE ONCE PO 04/03/21 22:00 04/03/21 22:01 DC 04/03/21 21:53 800 MG Piperacillin Sod/ Tazobactam Sod 4.5 gm/Sodium Chloride 100 ml @ 200 mls/hr ONCE ONCE IV 04/03/21 22:15 04/03/21 22:44 DC 04/03/21 22:41 200 MLS/HR Vital Signs/I&O 04/03/21 21:38 Temp 36.1 Pulse 110 Resp 18 B/P (MAP) 127/78 (94) Pulse Ox 97 O2 Delivery Room Air Capillary Refill : Departure Communication (Admissions) Family Conversation NAME: DESHAWN OPE MED REC#: [id number] PT STATUS: REG ER : 05/13/1939 PHYSICIAN: DALIA ROLDAN APRN ADMIT DATE: 04/03/21/ER Draft Date of Exam:04/03/21 CHEST 1 VIEW, AP/PA ONLY EXAMINATION: Portable chest. COMPARISON: Prior from March 28, 2021. INDICATION: Covid positive. Cough. FINDINGS: There are patchy airspace opacities within the mid right lung and at the left lung base compatible with pneumonia. There appear to be some prior calcified granulomas at the left lung base. There is no effusion. There is flattening of the diaphragm and there are chronic pulmonary interstitial changes. Heart size is stable. There are prior operative changes involving the cervical spine. IMPRESSION: Background features of apparent COPD with new airspace opacities within the mid right lung and left lung base compatible with superimposed pneumonia. Dictated on workstation # [id number] Dict: 04/03/212233 Trans: 04/03/212239 [facility] [id number] Interpreted by: SOLITARIO SHAFER MD Electronically signed by: 2200-patient states that he is not been able to get out of bed to take himself to the bathroom. He states that he has a very sore bottom. Denies any pain or tingling down his legs. However his pain is confined to his low back. He states that he is able to stand up but is unable to walk because of weakness in his legs. He does have some skin breakdown, stage II pressure ulcer over the sacrum. 2256-lactic acid 5.19. He will need a 30ml/kg bolus for IBW of 73kg. 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 Referrals: MINESH WEISS DO (PCP/Family) Primary Care Physician DALIA ROLDAN APRN Apr 03, 2021 21:46
[2021-04-03] MEDS ORDERED: IBUPROFEN 800 MG (MOTRIN) TAB PO ONE (22:00)
[2021-04-03] MEDS ORDERED: LACTATED RINGERS 1,000 ML IV SCH (22:00)
[2021-04-03 22:03] LABS: BASOPHILS # (AUTO) 0.1 10^3/uL (0.0-0.1); BASOPHILS % (AUTO) 0 % (0-10); EOSINOPHILS # (AUTO) 0.1 10^3/uL (0.0-0.3); EOSINOPHILS % (AUTO) 0 % (0-10); HEMATOCRIT 34 % (40-54); HEMOGLOBIN 11.7 g/dL (13.3-17.7); LYMPHOCYTES # (AUTO) 5.3 10^3/uL (1.0-4.0); LYMPHOCYTES % (AUTO) 29 % (12-44); MEAN CORPUSCULAR HEMOGLOBIN 34 pg (25-34); MEAN CORPUSCULAR HGB CONC 34 g/dL (32-36); MEAN CORPUSCULAR VOLUME 101 fL (80-99); MONOCYTES # (AUTO) 2.4 10^3/uL (0.0-1.0); MONOCYTES % (AUTO) 13 % (0-12); NEUTROPHILS # (AUTO) 10.4 10^3/uL (1.8-7.8); NEUTROPHILS % (AUTO) 57 % (42-75); PLATELET COUNT 216 10^3/uL (130-400); WHITE BLOOD COUNT 18.3 10^3/uL (4.3-11.0)
[2021-04-03 22:15] LABS: INR 1.3 (0.8-1.4); PROTHROMBIN TIME PATIENT 16.4 SEC (12.2-14.7)
[2021-04-03] MEDS ORDERED: PIPERACILLIN SODIUM/TAZOBACTAM 4.5 GM in NS (IVPB) 100 ML IV ONE (22:15)
[2021-04-03 22:22] LABS: ALBUMIN 3.6 GM/DL (3.2-4.5); CALCIUM 8.4 MG/DL (8.5-10.1); CREATININE SERUM 0.81 MG/DL (0.60-1.30); POTASSIUM 3.3 MMOL/L (3.6-5.0); TOTAL PROTEIN 6.8 GM/DL (6.4-8.2)
[2021-04-03 22:24] LABS: ATYPICAL LYMPHOCYTES 2 %; BAND NEUTROPHILS 1 %; BLAST CELLS 4 %; LYMPHOCYTES % (MANUAL) 18 %; METAMYELOCYTES % 3 %; MONOCYTES % (MANUAL) 10 %; NEUTROPHILS % (MANUAL) 61 %; REACTIVE LYMPHOCYTES 1 %
[2021-04-03 22:25] LABS: ANISOCYTOSIS SLIGHT; MICROCYTOSIS SLIGHT; POIKILOCYTOSIS SLIGHT; POLYCHROMASIA SLIGHT
--- NOTE | 2021-04-03 22:40 | Diagnostic Imaging Report ---
EXAMINATION: Portable chest. COMPARISON: Prior from March 28, 2021. INDICATION: Covid positive. Cough. FINDINGS: There are patchy airspace opacities within the mid right lung and at the left lung base compatible with pneumonia. There appear to be some prior calcified granulomas at the left lung base. There is no effusion. There is flattening of the diaphragm and there are chronic pulmonary interstitial changes. Heart size is stable. There are prior operative changes involving the cervical spine. IMPRESSION: Background features of apparent COPD with new airspace opacities within the mid right lung and left lung base compatible with superimposed pneumonia. Dictated by: Dictated on workstation # [id number]
[2021-04-03] MEDS ORDERED: HYDROcodone/APAP 5 MG/325 MG (LORTAB) TAB PO ONE (23:15)
[2021-04-03] MEDS ORDERED: fentaNYL INJ 100 MCG/2 ML AMP IVP ONE (23:30)
[2021-04-03] MEDS ORDERED: NS W/KCL 40 MEQ/L 1,000 ML IV ONE (23:40)
[2021-04-03] MEDS ORDERED: ONDANSETRON 4 MG/2 ML (SDV) Z0FRAN IV PRN (23:45)
[2021-04-03] MEDS ORDERED: dexAMETHasone 6 MG TAB (DECADRON) PO SCH (23:58)
[2021-04-04] MEDS ORDERED: RT-ALBUTEROL HFA 8.5 GM INHALER IH SCH
[2021-04-04] MEDS: NS W/KCL 40 MEQ/L 1,000 ML IV SCH ×3 (00:09→16:09)
[2021-04-04] MEDS ORDERED: EPINEPHrine 1 MG INJECTION 4 MG in NS (IVPB) 248 ML IV SCH (00:30)
[2021-04-04] MEDS: NOREPINEPHRINE 8 MG/250 ML 250 ML IV SCH ×2 (00:35→12:07)
[2021-04-04] MEDS: VASOPRESSIN INJECTION 20 UNIT in NS (IVPB) 100 ML IV SCH ×2 (00:39→11:53)
--- NOTE | 2021-04-04 00:57 | Progress Note ---
Standard Progress Note Progress Notes/Assess & Plan Date Seen by a Provider: Apr 04, 2021 Time Seen by a Provider: 00:53 Progress/Assessment & Plan Pt admitted for extensive excoriations of groin, sacrum after sitting in same chair for many days Has elevated WBC 18, Lactate elevated up to 5, started on IV epi, for a while, Also, COVID + but SpO2 ok on RA, on IV decadron, Vanco, Zosyn admitted as cardiac stepdown will continue to hydrate, abx DIPTI NIEVES MD Apr 04, 2021 00:57
[2021-04-04] MEDS: VANCOMYCIN 1 GM/NS 250 ML IVPB IV SCH ×4 (01:26→02:28)
[2021-04-04 04:28] LABS: BASOPHILS % (AUTO) 0 % (0-10); EOSINOPHILS % (AUTO) 0 % (0-10); HEMATOCRIT 31 % (40-54); HEMOGLOBIN 10.6 g/dL (13.3-17.7); LYMPHOCYTES # (AUTO) 4.2 10^3/uL (1.0-4.0); LYMPHOCYTES % (AUTO) 30 % (12-44); MEAN CORPUSCULAR HEMOGLOBIN 34 pg (25-34); MEAN CORPUSCULAR HGB CONC 34 g/dL (32-36); MEAN CORPUSCULAR VOLUME 99 fL (80-99); MONOCYTES # (AUTO) 1.6 10^3/uL (0.0-1.0); MONOCYTES % (AUTO) 12 % (0-12); NEUTROPHILS # (AUTO) 7.9 10^3/uL (1.8-7.8); NEUTROPHILS % (AUTO) 57 % (42-75); PLATELET COUNT 154 10^3/uL (130-400); WHITE BLOOD COUNT 13.9 10^3/uL (4.3-11.0)
[2021-04-04 04:50] LABS: POTASSIUM 3.3 MMOL/L (3.6-5.0)
[2021-04-04 04:51] LABS: CALCIUM 7.6 MG/DL (8.5-10.1)
[2021-04-04] MEDS: PIPERACILLIN SODIUM/TAZOBACTAM 4.5 GM in NS (IVPB) 100 ML IV SCH ×3 (04:53→19:52)
[2021-04-04 04:55] LABS: CREATININE SERUM 0.69 MG/DL (0.60-1.30)
[2021-04-04] MEDS: inSUlin ASPART (NovoLOG) 1 UNIT/0.01 ML (CHARGE PER UNIT) SC SCH ×4 (05:24→21:00)
[2021-04-04 08:31] LABS: PHOSPHORUS 2.2 MG/DL (2.3-4.7); URIC ACID 3.6 MG/DL (2.6-7.2)
--- NOTE | 2021-04-04 08:33 | Tele-ICU Consult ---
History of Present Illness History of Present Illness Date Seen by Provider: Apr 04, 2021 Time Seen by Provider: 08:32 Date of Admission 04/03/21 History of Present Illness He is a 81-year-old male with past medical history of cervical spine surgery in the remote past, cerebellar infarct, unsteady gait apparently had an MRI of the lumbar spine for his spinal stenosis the results of which is not known. The MRI is done at the [facility] and he is advised to follow-up there but he has not made an appointment. He also has a history of Covid infection about 9 days ago during the last week's visit. Now he presented to the emergency room again with a cough and generalized weakness and found to have a elevated lactic acid level with hyponatremia. He is currently being hydrated and his lactic acid level came down. He does talk few sentences but unable to give any detailed history via video visit. I have reviewed his previous medical problems. He received extensive physical therapy and ENT evaluation in the past. 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 [facility] hematology oncology consultation is requested. His pro calcitonin is minimally elevated. Allergies and Home Medications Allergies Coded Allergies: No Known Drug Allergies (Unverified , 01/22/10) Home Medications Atorvastatin Calcium 10 Mg Tablet, 10 MG PO HS, (Reported) Clopidogrel Bisulfate 75 Mg Tablet, 75 MG PO DAILY, (Reported) Glimepiride 4 Mg Tablet, 4 MG PO DAILY, (Reported) Sennosides 8.6 Mg Tablet, 8.6-17.2 MG PO BID PRN for CONSTIPATION-5TH LINE, (Reported) Past Medical/Social/Family Hx Patient Social History Tobacco Use?: Yes Smoking Status: Former Smoker Smokeless type used: Chew Smokeless Tobacco Frequency: Current Everyday User Use of E-Cig and/or Vaping dev: No Substance use?: No Alcohol Use?: No Pt stated abuse/neglect: No Immunizations Up To Date Influenza Vaccine Up-to-Date: No; Not Current First/Initial COVID19 Vaccinat: NONE Second COVID19 Vaccination Gurmeet: no Current Status Advance Directives: No Communicates: Verbally Primary Language: Malaysian Preferred Spoken Language: Malaysian Is interpretation needed?: No Sensory deficits: Vision impairment Review of Systems Constitutional: see HPI Other ROS PER RN Focused Exam Lactate Level 04/03/21 22:20: Lactic Acid Level 5.19*H 04/04/21 05:30: Lactic Acid Level 1.05 Height, Weight, BMI Height: 6'0.00" Weight: 198lbs. 9.0oz. 90.149062fk; 25.06 BMI Method:Stated Time of Focused Exam: 22:58 Lactic Acid Level Laboratory Tests Test 04/04/21 05:30 Lactic Acid Level 1.05 MMOL/L (0.50-2.00) Exam Exam Patient acknowledged, consented, and participated in this virtual visit which was conducted using real time audio/video Vital Signs Date Time Temp Pulse Resp B/P (MAP) Pulse Ox O2 Delivery O2 Flow Rate FiO2 04/04/21 08:15 35.5 04/04/21 08:00 51 11 96/58 99 Room Air 04/04/21 07:00 53 04/04/21 04:47 96 Room Air 04/04/21 04:00 36.1 96 11 106/57 91 Room Air 04/04/21 01:30 71 16 111/69 97 Room Air 04/04/21 01:00 79 19 101/68 97 Room Air 04/04/21 01:00 81 04/04/21 00:47 95 Room Air 04/04/21 00:30 79 14 101/64 94 Room Air 04/04/21 00:15 88 17 104/62 95 Room Air 04/04/21 00:00 94 21 99/59 95 Room Air 04/03/21 23:45 99 21 83/58 95 Room Air 04/03/21 23:30 37.0 04/03/21 23:30 95 Room Air 04/03/21 23:30 37.0 04/03/21 23:19 36.5 103 18 129/82 98 Room Air 04/03/21 21:38 36.1 110 18 127/78 (94) 97 Room Air I & O 04/04/21 07:00 Intake Total 1600 ml Balance 1600 ml Height & Weight Height: 6'0.00" Weight: 198lbs. 9.0oz. 90.587709jb; 25.06 BMI Method:Stated General Appearance: No Apparent Distress, Chronically ill, Other (His oxygen saturation is 95 to 99% on room air. He is tachycardic with a heart rate of 110. Alert and oriented little hard of hearing) Neck: Full Range of Motion, Normal Inspection Respiratory: Crackles Cardiovascular: Regular Rate, Rhythm, Normal Peripheral Pulses Capillary Refill: NONE Extremity: Normal Capillary Refill, Normal Inspection Neurologic/Psychiatric: Alert, Oriented x3 Skin: Normal Color, Warm/Dry Other comments PE PER RN Results Lab Laboratory Tests 04/03/21 22:00 04/04/21 04:17 Assessment/Plan Assessment/Plan 1. Possible pneumonia causing his cough and x-ray appearances. 2. Underlying Covid19 pneumonia 3. Unsteady gait could be due to lumbar spinal stenosis based on MRI of 03/17/2021. 4. Given his high MCV needs to rule out any combined degeneration due to vitamin B12 or folate deficiency also he has other reasons to be cerebellar CVA 5 hyponatremia and hypokalemia due to possible infection. Recommendations 1. Continue IV fluids with potassium chloride and monitor electrolytes. 2. IV antibiotics per primary care physician 3. We will get vitamin B-12, folic acid, TSH, free T4 and vitamin D levels. 4. Physical therapy and Occupational Therapy 5. DVT prophylaxis and ulcer prophylaxis 6. Awaiting hematology consult Critical Care: Critically Ill Patient Time spent with patient (mins): 30 SRINIVASA OHARA MD Apr 04, 2021 08:33
[2021-04-04 09:52] LABS: BAND NEUTROPHILS 9 %; NEUTROPHILS % (MANUAL) 59 %
[2021-04-04 09:53] LABS: ATYPICAL LYMPHOCYTES 2 %; LYMPHOCYTES % (MANUAL) 13 %; MONOCYTES % (MANUAL) 10 %; REACTIVE LYMPHOCYTES 3 %
[2021-04-04 09:54] LABS: ANISOCYTOSIS SLIGHT; MICROCYTOSIS SLIGHT; POIKILOCYTOSIS SLIGHT
[2021-04-04 09:55] LABS: TOXIC GRANULATION/VACUOLAZATIO 1+
[2021-04-04 09:56] LABS: PLATELET ESTIMATE NORMAL
--- NOTE | 2021-04-04 11:20 | Occupational Therapy Eval ---
OT Evaluation-General/PLF Medical Diagnosis Admission Date Apr 03, 2021 at 22:38 Medical Diagnosis: COVID 19, general weakness, sepsis Onset Date: Apr 03, 2021 Therapy Diagnosis Therapy Diagnosis: decreased ADL status Height/Weight Height (Feet): 6 Height (Inches): 0.00 Weight (Pounds): 198 Weight (Ounces): 9.0 Precautions Precautions/Isolations: Airborne Isolation, Contact Isolation, Fall Prevention Referral Physician: Tiffany Referral Reason: Evaluation/Treatment Medical History Pertinent Medical History: CVA, DM, HTN Current History ED via EMS due to decreased intake, general weakness x4 days. Pt diagnosed with COVID-19 03/28/21 Social History Home: Single Level Current Living Status: Other Family Entry Into Home: Level Entry ADL-Prior Level of Function SCALE: Activities may be completed with or without assistive devices. 4-Vmhjgygyzi-fjdeagj completes the activity by him/herself with no assistance from a helper. 5-Set-up or Clean-up Assistance-helper sets up or cleans up; patient completes activity. [place] assists only prior to or following the activity. 4-Supervision or Touching Assistance-helper provides verbal cues and/or touching/steadying and/or contact guard assistance as patient completes activity. Assistance may be provided throughout the activity or intermittently. 3-Partial/Moderate Assistance-helper does LESS THAN HALF the effort. [place] lifts, holds or supports trunk or limbs, but provides less than half the effort. 2-Substantial/Maximal Assistance-helper does MORE THAN HALF the effort. [place] lifts or holds trunk or limbs and provides more than half the effort. 7-Nrgcasbmf-vjrhpm does ALL the effort. Patient does none of the effort to complete the activity. Or, the assistance of 2 or more helpers is required for the patient to complete the activity. If activity was not attempted, code reason: 7-Patient Refused. 9-Not Applicable-not attempted and the patient did not perform the activity before the current illness, exacerbation or injury. 10-Not Attempted due to Environmental Limitations-(lack of equipment, weather restraints, etc.). 88-Not Attempted due to Medical Conditions or Safety Concerns. ADL PLOF Comments Pt reports being IND with ADLs and functional mobility at PLOF, using a walker. Pt reports a sedentary lifestyle, indicating he doesn't move like he should. Self Care: Independent Functional Cognition: Independent DME/Equipment: Tub OT Current Status Subjective Pt in bed, wound care nurse present to clean wound and apply dressing. Pt reports 10/10 pain in buttocks Mental Status/Objective Patient Orientation: Person, Place, Situation Current Upper Extremity ROM WFL Upper Extremity Strength grossly 3+/5 ADL-Treatment On/Off Footwear (QC): 1 Toileting Hygiene (QC): 1 Other Treatments Pt in bed, OT assisted wound care nurse in cleaning wound on buttocks, and positioning of pt while applying dressing. After dressing change, pt transferred supine to sit EOB, assist x2. Pt unable to fully sit EOB due to pain in buttocks wound, rating pain 10/10, requesting to lay down. Assist x2 to return supine. Pt's O2 saturation dropped into the 80%'s with activity, increasing back into 90%'s within several seconds. Pt positioned with pillows to decrease pressure on buttocks. Post tx, pt in bed, call light in reach and all needs met, Max A with rolling, total assist supine to/from sit. Education OT Patient Education: Correct positioning, Energy conservation, Modified ADL techniques, Progress toward Goal/Update tx plan, Purpose of tx/functional activities, Rehab process Teaching Recipient: Patient Teaching Methods: Discussion Response to Teaching: Verbalize Understanding OT Group Home Goals Custom Bike Builder Goals Time Frame: Apr 25, 2021 Eating (QC): 6 Oral Hygiene (QC): 5 Toileting Hygiene (QC): 4 Shower/Bathe Self (QC): 4 Upper Body Dressing (QC): 5 Lower Body Dressing (QC): 4 On/Off Footwear (QC): 4 Additional Goals: 1-Demonstrate ADL Tasks, 2-Verbalize Understanding, 3- ImproveStrength/Elias 1=Demonstrate adherence to instructed precautions during ADL tasks. 2=Patient will verbalize/demonstrate understanding of assistive devices/modifications for ADL. 3=Patient will improve strength/tolerance for activity to enable patient to perform ADL's. OT Education/Plan Problem List/Assessment Assessment: Decreased Activ Tolerance, Decreased UE Strength, Impaired Bed Mobility, Impaired Funct Balance, Impaired I ADL's, Impaired Self-Care Skills Discharge Recommendations Plan/Recommendations: Continue POC Treatment Plan/Plan of Care Patient would benefit from OT for education, treatment and training to promote independence in ADL's, mobility, safety and/or upper extremity function for ADL's. Plan of Care: ADL Retraining, Functional Mobility, UE Funct Exercise/Act Treatment Duration: Apr 25, 2021 Frequency: 3 times per week (3-5 times per week) Estimated Hrs Per Day: .25 hour per day Agreement: Yes Rehab Potential: Guarded Time/GCodes Start Time: 10:45 Stop Time: 11:04 Total Time Billed (hr/min): 19 Billed Treatment Time 1, CAROL KEMP OT Apr 04, 2021 11:20
--- NOTE | 2021-04-04 11:37 | Physical Therapy Evaluation ---
PT Evaluation-General Medical Diagnosis Admission Date Apr 03, 2021 at 22:38 Medical Diagnosis: COVID 19, general weakness, sepsis Onset Date: Apr 03, 2021 Therapy Diagnosis Therapy Diagnosis: impaired mobility, strength, endurance Height/Weight Height (Feet): 6 Height (Inches): 0.00 Weight (Pounds): 198 Weight (Ounces): 9.0 Precautions Precautions/Isolations: Airborne Isolation, Contact Isolation, Fall Prevention Referral Physician: Tiffany Reason for Referral: Evaluation/Treatment Medical History Pertinent Medical History: CVA, DM, HTN Additional Medical History Past Medical History Surgery/Hospitalization HX: HX OF BACK PAIN Surgeries: Yes (patient said he doesn't remember what surgery he had) Hypertension Reproductive Disorders: No Sexually Transmitted Disease: No HIV/AIDS: No Diabetes, Non-Insulin dep Glaucoma Reviewed History: Yes Social History Home: Single Level Current Living Status: Other Family Entry Into Home: Level Entry Prior Prior Level of Function SCALE: Activities may be completed with or without assistive devices. 9-Hcehhgfdqx-xgpwgsl completes the activity by him/herself with no assistance from a helper. 5-Set-up or Clean-up Assistance-helper sets up or cleans up; patient completes activity. [place] assists only prior to or following the activity. 4-Supervision or Touching Assistance-helper provides verbal cues and/or touching/steadying and/or contact guard assistance as patient completes activity. Assistance may be provided throughout the activity or intermittently. 3-Partial/Moderate Assistance-helper does LESS THAN HALF the effort. [place] lifts, holds or supports trunk or limbs, but provides less than half the effort. 2-Substantial/Maximal Assistance-helper does MORE THAN HALF the effort. [place] lifts or holds trunk or limbs and provides more than half the effort. 5-Jmesdziel-ogldsi does ALL the effort. Patient does none of the effort to complete the activity. Or, the assistance of 2 or more helpers is required for the patient to complete the activity. If activity was not attempted, code reason: 7-Patient Refused. 9-Not Applicable-not attempted and the patient did not perform the activity before the current illness, exacerbation or injury. 10-Not Attempted due to Environmental Limitations-(lack of equipment, weather restraints, etc.). 88-Not Attempted due to Medical Conditions or Safety Concerns. PT Evaluation-Current Subjective Patient in bed pre tx, agrees to PT, has 8/10 pain "all over". Pt/Family Goals none stated Objective Patient Orientation: Person, Place, Situation Attachments: Broussard Catheter, IV ROM/Strength ROM Lower Extremities limited due to pain Strength Lower Extremities grossly 3/5 BLE except doesn't have dorsiflexion on the right side Sensory Vision: Wears Glasses Hearing: Functional Transfers Roll Left to Right (QC): 2 Lying to Sitting/Side of Bed(Q: 1 Attempted to get patient to sit to the side of the bed with assist of 2 but lydia salazar had too much pain and didn't quite get all the way up, his O2 dropped into the mid 80's during this. Patient layed back down and performed some LE exercises. He needs max assist for rolling. Treatment supine BLE exercises x10 (AP, HS), patient couldn't perform AP on the right side due to foot drop Assessment/Needs Patient in bed post tx with nurse call, phone, tray, all needs met, positioned on side with pillow support for pressure relief. Patient has impaired mobility, strength, endurance. He was not able to tolerate much therapy due to intense pain even with little movements like rolling. Rehab Potential: Fair PT Metal Bed Assembler Goals Metal Bed Assembler Goals PT Detention Goals Time Frame: Apr 11, 2021 Roll Left & Right (QC): 3 Sit to Lying (QC): 3 Lying-Sitting on Side/Bed(QC): 3 Sit to Stand (QC): 3 Chair/Dlh-tn-Xznkh Xfer(QC): 3 PT Plan Problem List Problem List: Activity Tolerance, Functional Strength, Safety, Balance, Gait, Transfer, Bed Mobility, ROM Treatment/Plan Treatment Plan: Continue Plan of Care Treatment Plan: Bed Mobility, Education, Functional Activity Elias, Functional Strength, Gait, Safety, Therapeutic Exercise, Transfers Treatment Duration: Apr 11, 2021 Frequency: 6 times per week Estimated Hrs Per Day: .25 hour per day Patient and/or Family Agrees t: Yes Safety Risks/Education Patient Education: Correct Positioning, Safety Issues Teaching Recipient: Patient Teaching Methods: Demonstration, Discussion Response to Teaching: Reinforcement Needed Discharge Recommendations Plan Patient will perform bed mobility and transfer training, balance and endurance training, functional strengthening, gait training, and education, to improve functional mobility and independence at home. Therapy Discharge Recommendati: 24 Hour Supervision Time/GCodes Time In: 1054 Time Out: 1104 Total Billed Treatment Time: 10 Total Billed Treatment 1 visit MITCHELL GUERRERO PT Apr 04, 2021 11:37
[2021-04-04] MEDS ORDERED: SENN-36 PO (11:59)
[2021-04-04] MEDS ORDERED: ATOR10TA66 PO (11:59)
[2021-04-04] MEDS ORDERED: CLOP75TA28 PO (11:59)
[2021-04-04] MEDS ORDERED: GLIM4TAB5 PO (11:59)
[2021-04-04] MEDS: VANCOMYCIN 1250 MG/NS 250 ML IVPB IV SCH ×2 (13:35)
[2021-04-04 13:41] LABS: FREE T4 (FREE THYROXINE) 0.95 NG/DL (0.70-1.48)
[2021-04-04] MEDS: POTASSIUM CL 10MEQ/50ML IVPB 50 ML IV SCH ×2 (16:09→18:38)
--- NOTE | 2021-04-04 18:42 | History & Physical-Hospitalist ---
History of Present Illness HPI/Chief Complaint Samuel Szymanski is an 81 year old male with PMH HTN, T2DM, HLD, who presented with weakness. He has been feeling sick for over a week. He was diagnosed with COVID on 03/28. He is not feeling short of breath. He denies fevers and chills. He denies cough. He denies chest pain. Source: patient Exam Limitations: no limitations Date Seen 04/04/21 Time Seen by a Provider: 09:45 Attending Physician Melvin Hayes MD PCP Live James DO Referring Physician Date of Admission Apr 03, 2021 at 22:38 Home Medications & Allergies Home Medications Reviewed patient Home Medication Reconciliation performed by pharmacy medication reconciliations pest control chemical technician and/or nursing. Patients Allergies have been reviewed. Allergies Allergies Coded Allergies No Known Drug Allergies (Obcmmbvioe68/15/10) Past Ckysprx-Xtphkr-Fghluo Hx Patient Social History Tobacco Use?: Yes Smoking Status: Former Smoker Smokeless type used: Chew Smokeless Tobacco Frequency: Current Everyday User Use of E-Cig and/or Vaping dev: No Substance use?: No Alcohol Use?: No Pt feels they are or have been: No Immunizations Up To Date First/Initial COVID19 Vaccinat: NONE Second COVID19 Vaccination Gurmeet: no PED Vaccines UTD: No Current Status Advance Directives: No Communicates: Verbally Primary Language: Slovak Preferred Spoken Language: Slovak Is interpretation needed?: No Sensory deficits: Vision impairment Past Medical History Hypertension Sexually Transmitted Disease: No HIV/AIDS: No Diabetes, Non-Insulin dep Glaucoma Family Medical History Patient reports no known family medical history. No Pertinent Family Hx Review of Systems Constitutional: weakness EENTM: no symptoms reported Respiratory: no symptoms reported Cardiovascular: no symptoms reported Gastrointestinal: no symptoms reported Genitourinary: no symptoms reported Musculoskeletal: no symptoms reported Skin: no symptoms reported Psychiatric/Neurological: No Symptoms Reported Physical Exam Physical Exam Vital Signs Vital Signs - First Documented 04/03/21 21:38 Temp 36.1 Pulse 110 Resp 18 B/P (MAP) 127/78 (94) Pulse Ox 97 O2 Delivery Room Air Capillary Refill : NONE Height, Weight, BMI Height: 6'0.00" Weight: 198lbs. 9.0oz. 90.969408wd; 25.06 BMI Method:Stated General Appearance: No Apparent Distress, WD/WN HEENT: PERRL/EOMI, Pharynx Normal Neck: Normal Inspection, Supple Respiratory: No Respiratory Distress, Decreased Breath Sounds Cardiovascular: Regular Rate, Rhythm, No Murmur Gastrointestinal: Normal Bowel Sounds, Non Tender, Soft Extremity: Normal Inspection, Pedal Edema Neurologic/Psychiatric: Alert, Normal Mood/Affect, Motor Weakness Skin: Normal Color, Warm/Dry Results Results/Procedures Labs Laboratory Tests 04/03/21 22:00 04/04/21 04:17 Patient resulted labs reviewed. Imaging: Reviewed Imaging Report Assessment/Plan Admission Diagnosis Severe sepsis due to pneumonia Admission Status: Inpatient Order (span 2 midnights) Reason for Inpatient Admission: IV antibiotics Assessment and Plan Severe sepsis due to pneumonia Secondary bacterial pneumonia Pneumonia due to COVID-19 Lactic acidosis Debility CXR with multifocal pneumonia COVID+ 03/28 Not requriing suppelemental oxygen Stop decadron Continue Vanc and Zosyn Blood cultures pending IV fluids PT/OT T2DM Sliding scale insulin HTN HLD Hold home meds DVT prophylaxis: Lovenox Diagnosis/Problems Diagnosis/Problems (1) Severe sepsis Status: Acute (2) PNA (pneumonia) Status: Acute (3) Pneumonia due to COVID-19 virus Status: Acute (4) Debility Status: Acute (5) Lactic acidosis Status: Acute (6) T2DM (type 2 diabetes mellitus) Status: Chronic Qualifiers: Diabetes mellitus chcf insulin use: without chcf use (7) HLD (hyperlipidemia) Status: Chronic JUJU SMALLS MD Apr 04, 2021 18:42
[2021-04-04] MEDS: ENOXAPARIN 40 MG/0.4 ML (LOVENOX) SYR SC SCH (19:52)
[2021-04-04] MEDS ORDERED: NS (IVPB) 250 ML ONE (20:49)
[2021-04-04] MEDS: NYSTATIN CREAM (MYCOSTATIN) 30 GM TUBE TP SCH (20:59)
[2021-04-05] MEDS: RT-ALBUTEROL HFA 8.5 GM INHALER IH SCH ×4 (02:40→15:21)
[2021-04-05] MEDS: NS W/KCL 40 MEQ/L 1,000 ML IV SCH ×2 (03:42→09:45)
[2021-04-05] MEDS: VANCOMYCIN 1250 MG/NS 250 ML IVPB IV SCH ×2 (03:42)
[2021-04-05] MEDS: PIPERACILLIN SODIUM/TAZOBACTAM 4.5 GM in NS (IVPB) 100 ML IV SCH ×3 (03:43→19:32)
[2021-04-05] MEDS: VASOPRESSIN INJECTION 20 UNIT in NS (IVPB) 100 ML IV SCH (03:51)
[2021-04-05] MEDS: NOREPINEPHRINE 8 MG/250 ML 250 ML IV SCH (03:51)
[2021-04-05 05:31] LABS: BASOPHILS # (AUTO) 0.1 10^3/uL (0.0-0.1); BASOPHILS % (AUTO) 0 % (0-10); EOSINOPHILS % (AUTO) 0 % (0-10); HEMATOCRIT 28 % (40-54); HEMOGLOBIN 9.3 g/dL (13.3-17.7); LYMPHOCYTES # (AUTO) 6.4 10^3/uL (1.0-4.0); LYMPHOCYTES % (AUTO) 33 % (12-44); MEAN CORPUSCULAR HEMOGLOBIN 34 pg (25-34); MEAN CORPUSCULAR HGB CONC 33 g/dL (32-36); MEAN CORPUSCULAR VOLUME 101 fL (80-99); MEAN PLATELET VOLUME 12.8 fL (9.0-12.2); MONOCYTES # (AUTO) 3.8 10^3/uL (0.0-1.0); MONOCYTES % (AUTO) 19 % (0-12); NEUTROPHILS # (AUTO) 9.2 10^3/uL (1.8-7.8); NEUTROPHILS % (AUTO) 46 % (42-75); PLATELET COUNT 174 10^3/uL (130-400); WHITE BLOOD COUNT 19.8 10^3/uL (4.3-11.0)
[2021-04-05 05:43] LABS: ALBUMIN 2.6 GM/DL (3.2-4.5)
[2021-04-05 05:44] LABS: POTASSIUM 4.5 MMOL/L (3.6-5.0)
[2021-04-05 05:45] LABS: CALCIUM 7.5 MG/DL (8.5-10.1)
[2021-04-05 05:46] LABS: TOTAL PROTEIN 4.9 GM/DL (6.4-8.2)
[2021-04-05 05:48] LABS: BILIRUBIN,TOTAL 0.8 MG/DL (0.1-1.0)
[2021-04-05 05:50] LABS: CREATININE SERUM 0.65 MG/DL (0.60-1.30)
[2021-04-05] MEDS: inSUlin ASPART (NovoLOG) 1 UNIT/0.01 ML (CHARGE PER UNIT) SC SCH ×4 (06:12→20:34)
--- NOTE | 2021-04-05 09:35 | Physical Therapy Daily Note ---
PT Daily Note-Current Subjective Patient agrees to PT. Mental Status Patient Orientation: Person, Time, Situation Transfers SCALE: Activities may be completed with or without assistive devices. 8-Wmbtndtjfv-vzcurkw completes the activity by him/herself with no assistance from a helper. 5-Set-up or Clean-up Assistance-helper sets up or cleans up; patient completes activity. [place] assists only prior to or following the activity. 4-Supervision or Touching Assistance-helper provides verbal cues and/or touching/steadying and/or contact guard assistance as patient completes activity. Assistance may be provided throughout the activity or intermittently. 3-Partial/Moderate Assistance-helper does LESS THAN HALF the effort. [place] lifts, holds or supports trunk or limbs, but provides less than half the effort. 2-Substantial/Maximal Assistance-helper does MORE THAN HALF the effort. [place] lifts or holds trunk or limbs and provides more than half the effort. 5-Utdgusruk-pkyvkm does ALL the effort. Patient does none of the effort to c omplete the activity. Or, the assistance of 2 or more helpers is required for the patient to complete the activity. If activity was not attempted, code reason: 7-Patient Refused. 9-Not Applicable-not attempted and the patient did not perform the activity before the current illness, exacerbation or injury. 10-Not Attempted due to Environmental Limitations-(lack of equipment, weather restraints, etc.). 88-Not Attempted due to Medical Conditions or Safety Concerns. Sit to Lying (QC): 4 Lying to Sitting/Side of Bed(Q: 4 Exercises Seated Therapy Exercises: Ankle pumps, Long arc quads, Hip flexion Seated Reps: 12 Assessment Patient tolerated sitting EOB and performing exercises. Patient currently on RA with SAO2 remaining >90% with activity. Patient performed bed mobility and repositioning SBA. 4 rails up with bed alarm activated. PT Equipment Maintenance Supervisor Goals Equipment Maintenance Supervisor Goals PT Mcc Goals Time Frame: Apr 11, 2021 Roll Left & Right (QC): 3 Sit to Lying (QC): 3 Lying-Sitting on Side/Bed(QC): 3 Sit to Stand (QC): 3 Chair/Bsm-ym-Gwdel Xfer(QC): 3 PT Plan Treatment/Plan Treatment Plan: Continue Plan of Care Treatment Plan: Bed Mobility, Education, Functional Activity Elias, Functional Strength, Gait, Safety, Therapeutic Exercise, Transfers Treatment Duration: Apr 11, 2021 Frequency: 6 times per week Estimated Hrs Per Day: .25 hour per day Patient and/or Family Agrees t: Yes Time/GCodes Time In: 715 Time Out: 725 Total Billed Treatment Time: 10 Total Billed Treatment 1 visit EX 10 min CINDI ANNA PT Apr 05, 2021 09:35
[2021-04-05] MEDS: NYSTATIN CREAM (MYCOSTATIN) 30 GM TUBE TP SCH ×2 (09:44→19:45)
[2021-04-05] MEDS ORDERED: polyethylene glycoL POWDER 17 GM (MIRALAX) PACK PO PRN (11:45)
--- NOTE | 2021-04-05 11:58 | Progress Note - Hospitalist ---
Subjective HPI/CC On Admission Date Seen by Provider: Apr 05, 2021 Time Seen by Provider: 09:30 Samuel Szymanski is an 81 year old male with PMH HTN, T2DM, HLD, who presented with weakness. He has been feeling sick for over a week. He was diagnosed with COVID on 03/28. He is not feeling short of breath. He denies fevers and chills. He denies cough. He denies chest pain. Subjective/Events-last exam He is feeling weak. He still has a cough. He is not short of breath. He has been eating and drinking. He denies pain. Focused Exam Lactate Level 04/03/21 22:20: Lactic Acid Level 5.19*H 04/04/21 05:30: Lactic Acid Level 1.05 Time of Focused Exam: 22:58 Objective Exam Vital Signs Vital Signs Date Time Temp Pulse Resp B/P (MAP) Pulse Ox O2 Delivery O2 Flow Rate FiO2 04/05/21 11:45 36.2 81 20 104/66 94 Room Air Capillary Refill : NONE General Appearance: No Apparent Distress, Chronically ill Respiratory: Lungs Clear, No Respiratory Distress Cardiovascular: Regular Rate, Rhythm, No Murmur Gastrointestinal: Normal Bowel Sounds, Soft Extremity: Normal Inspection, Pedal Edema Neurologic/Psychiatric: Alert, Motor Weakness Skin: Normal Color, Warm/Dry Results/Procedures Lab Laboratory Tests 04/05/21 05:15 Patient resulted labs reviewed. Imaging: Reviewed Imaging Report Assessment/Plan Assessment and Plan Assess & Plan/Chief Complaint Severe sepsis due to pneumonia Secondary bacterial pneumonia Pneumonia due to COVID-19 Lactic acidosis Debility CXR with multifocal pneumonia COVID+ 03/28 Not requriing suppelemental oxygen Stop Vanc Continue Zosyn Blood cultures with no growth Stop IV fluids PT/OT Consult social work, needs skilled placement T2DM Sliding scale insulin HTN HLD Continue home meds DVT prophylaxis: Lovenox Diagnosis/Problems Diagnosis/Problems (1) Severe sepsis Status: Acute (2) PNA (pneumonia) Status: Acute (3) Pneumonia due to COVID-19 virus Status: Acute (4) Debility Status: Acute (5) Lactic acidosis Status: Acute (6) T2DM (type 2 diabetes mellitus) Status: Chronic Qualifiers: Diabetes mellitus halfway insulin use: without truck terminal manager use (7) HLD (hyperlipidemia) Status: Chronic JUJU SMALLS MD Apr 05, 2021 11:58
[2021-04-05] MEDS ORDERED: FOLIC ACID 1 MG TAB PO NR (12:15)
[2021-04-05] MEDS ORDERED: TROUGH ORDER-PHARMACY XX NR (12:30)
[2021-04-05] MEDS: ENOXAPARIN 40 MG/0.4 ML (LOVENOX) SYR SC SCH (17:52)
[2021-04-05 18:59] VITALS: BP 101/51
[2021-04-05] MEDS ORDERED: RT-ALBUTEROL HFA 8.5 GM INHALER IH PRN (19:15)
[2021-04-05] MEDS: SENNA W/DOCUSATE (SENOKOT S) TABLET PO SCH (19:45)
[2021-04-05] MEDS: DOCUSATE SODIUM 100 MG (COLACE) CAP PO SCH (19:45)
[2021-04-05] MEDS: AtorvaSTATin TABLET 10 MG TABLET PO SCH (19:45)
[2021-04-06] MEDS: PIPERACILLIN SODIUM/TAZOBACTAM 4.5 GM in NS (IVPB) 100 ML IV SCH ×3 (04:51→20:43)
[2021-04-06 05:22] LABS: BASOPHILS # (AUTO) 0.1 10^3/uL (0.0-0.1); BASOPHILS % (AUTO) 0 % (0-10); EOSINOPHILS # (AUTO) 0.1 10^3/uL (0.0-0.3); EOSINOPHILS % (AUTO) 1 % (0-10); HEMATOCRIT 33 % (40-54); HEMOGLOBIN 10.8 g/dL (13.3-17.7); LYMPHOCYTES # (AUTO) 9.7 10^3/uL (1.0-4.0); LYMPHOCYTES % (AUTO) 47 % (12-44); MEAN CORPUSCULAR HEMOGLOBIN 34 pg (25-34); MEAN CORPUSCULAR HGB CONC 33 g/dL (32-36); MEAN CORPUSCULAR VOLUME 102 fL (80-99); MEAN PLATELET VOLUME 12.6 fL (9.0-12.2); MONOCYTES # (AUTO) 4.4 10^3/uL (0.0-1.0); MONOCYTES % (AUTO) 21 % (0-12); NEUTROPHILS # (AUTO) 6.4 10^3/uL (1.8-7.8); NEUTROPHILS % (AUTO) 31 % (42-75); PLATELET COUNT 202 10^3/uL (130-400); WHITE BLOOD COUNT 20.8 10^3/uL (4.3-11.0)
[2021-04-06 05:32] LABS: POTASSIUM 4.3 MMOL/L (3.6-5.0)
[2021-04-06 05:33] LABS: CALCIUM 7.7 MG/DL (8.5-10.1)
[2021-04-06 05:37] LABS: CREATININE SERUM 0.69 MG/DL (0.60-1.30)
[2021-04-06] MEDS: inSUlin ASPART (NovoLOG) 1 UNIT/0.01 ML (CHARGE PER UNIT) SC SCH ×4 (06:24→19:45)
[2021-04-06] MEDS ORDERED: VITAMIN D3 10 MCG (400 UNITS) TABLET PO SCH (07:00)
[2021-04-06] MEDS: SENNA W/DOCUSATE (SENOKOT S) TABLET PO SCH ×2 (07:51→20:44)
[2021-04-06] MEDS: DOCUSATE SODIUM 100 MG (COLACE) CAP PO SCH ×2 (07:51→20:44)
[2021-04-06] MEDS: CLOPIDOGREL 75 MG (PLAVIX) TABLET PO SCH (09:12)
[2021-04-06] MEDS: VITAMIN D3 10 MCG (400 UNITS) TABLET PO SCH (09:12)
[2021-04-06] MEDS: FOLIC ACID 1 MG TAB PO SCH (09:12)
[2021-04-06] MEDS: NYSTATIN CREAM (MYCOSTATIN) 30 GM TUBE TP SCH ×2 (09:13→20:44)
--- NOTE | 2021-04-06 10:42 | Progress Note - Hospitalist ---
Subjective HPI/CC On Admission Date Seen by Provider: Apr 06, 2021 Time Seen by Provider: 10:10 Samuel Szymanski is an 81 year old male with PMH HTN, T2DM, HLD, who presented with weakness. He has been feeling sick for over a week. He was diagnosed with COVID on 03/28. He is not feeling short of breath. He denies fevers and chills. He denies cough. He denies chest pain. Subjective/Events-last exam He denies pain. He denies shortness of breath. He had a bowel movement and needs to be cleaned up. Focused Exam Lactate Level 04/03/21 22:20: Lactic Acid Level 5.19*H 04/04/21 05:30: Lactic Acid Level 1.05 Time of Focused Exam: 22:58 Objective Exam Vital Signs Vital Signs Date Time Temp Pulse Resp B/P (MAP) Pulse Ox O2 Delivery O2 Flow Rate FiO2 04/06/21 07:49 Room Air 04/06/21 07:38 36.3 89 20 99/58 96 04/05/21 18:59 21 Capillary Refill : NONE General Appearance: No Apparent Distress, Chronically ill Respiratory: No Respiratory Distress, Decreased Breath Sounds Cardiovascular: Regular Rate, Rhythm, No Murmur Gastrointestinal: Normal Bowel Sounds, Non Tender, Soft Extremity: Normal Inspection, No Pedal Edema Neurologic/Psychiatric: Alert, Depressed Affect, Other (irritable) Skin: Normal Color, Warm/Dry Results/Procedures Lab Laboratory Tests 04/06/21 04:45 Patient resulted labs reviewed. Imaging: Reviewed Imaging Report Assessment/Plan Assessment and Plan Assess & Plan/Chief Complaint Secondary bacterial pneumonia Pneumonia due to COVID-19 Debility CXR with multifocal pneumonia COVID+ 03/28 Not requriing suppelemental oxygen Continue Zosyn PT/OT Consult social work, needs skilled placement T2DM Sliding scale insulin HTN HLD Continue home meds DVT prophylaxis: Lovenox Severe sepsis due to pneumonia, resolved Lactic acidosis, resolved Diagnosis/Problems Diagnosis/Problems (1) Severe sepsis Status: Resolved Resolution Date/Time: 04/06/21 @ 10:41 (2) PNA (pneumonia) Status: Acute (3) Pneumonia due to COVID-19 virus Status: Acute (4) Debility Status: Acute (5) Lactic acidosis Status: Resolved Resolution Date/Time: 04/06/21 @ 10:42 (6) T2DM (type 2 diabetes mellitus) Status: Chronic 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
[2021-04-06] MEDS: ENOXAPARIN 40 MG/0.4 ML (LOVENOX) SYR SC SCH (17:46)
[2021-04-06] MEDS: AtorvaSTATin TABLET 10 MG TABLET PO SCH (20:43)
[2021-04-07] MEDS: PIPERACILLIN SODIUM/TAZOBACTAM 4.5 GM in NS (IVPB) 100 ML IV SCH ×3 (04:50→20:07)
[2021-04-07] MEDS: VITAMIN D3 10 MCG (400 UNITS) TABLET PO SCH (04:52)
[2021-04-07] MEDS: inSUlin ASPART (NovoLOG) 1 UNIT/0.01 ML (CHARGE PER UNIT) SC SCH ×4 (05:40→21:30)
[2021-04-07 06:43] LABS: BASOPHILS % (AUTO) 0 % (0-10); EOSINOPHILS # (AUTO) 0.2 10^3/uL (0.0-0.3); EOSINOPHILS % (AUTO) 1 % (0-10); HEMATOCRIT 28 % (40-54); HEMOGLOBIN 9.3 g/dL (13.3-17.7); LYMPHOCYTES # (AUTO) 7.5 10^3/uL (1.0-4.0); LYMPHOCYTES % (AUTO) 47 % (12-44); MEAN CORPUSCULAR HEMOGLOBIN 34 pg (25-34); MEAN CORPUSCULAR HGB CONC 33 g/dL (32-36); MEAN CORPUSCULAR VOLUME 102 fL (80-99); MEAN PLATELET VOLUME 12.4 fL (9.0-12.2); MONOCYTES % (AUTO) 25 % (0-12); NEUTROPHILS # (AUTO) 4.3 10^3/uL (1.8-7.8); NEUTROPHILS % (AUTO) 27 % (42-75); PLATELET COUNT 176 10^3/uL (130-400); WHITE BLOOD COUNT 16.1 10^3/uL (4.3-11.0)
[2021-04-07 07:00] LABS: POTASSIUM 3.6 MMOL/L (3.6-5.0)
[2021-04-07 07:01] LABS: CALCIUM 7.5 MG/DL (8.5-10.1)
[2021-04-07 07:05] LABS: CREATININE SERUM 0.66 MG/DL (0.60-1.30)
[2021-04-07 07:08] LABS: EOSINOPHILS % (MANUAL) 3 %; LYMPHOCYTES % (MANUAL) 37 %; MONOCYTES % (MANUAL) 2 %; NEUTROPHILS % (MANUAL) 58 %
[2021-04-07 07:10] LABS: ANISOCYTOSIS SLIGHT; ELLIPT/OVALOCYTES SLIGHT
[2021-04-07] MEDS: DOCUSATE SODIUM 100 MG (COLACE) CAP PO SCH ×2 (07:52→19:29)
[2021-04-07] MEDS: SENNA W/DOCUSATE (SENOKOT S) TABLET PO SCH ×2 (07:52→19:29)
[2021-04-07] MEDS: CLOPIDOGREL 75 MG (PLAVIX) TABLET PO SCH (09:05)
[2021-04-07] MEDS: FOLIC ACID 1 MG TAB PO SCH (09:05)
[2021-04-07] MEDS: NYSTATIN CREAM (MYCOSTATIN) 30 GM TUBE TP SCH ×2 (09:05→21:31)
--- NOTE | 2021-04-07 11:32 | Oncology Consultation ---
Visit Information Visit Information Date of Admission Apr 03, 2021 at 22:38 Attending Physician Cecy Allen MD Admitting Physician Live James DO Chief Complaint Consulted for Leukocytosis, anemia and smudge cells in the setting of Covid pneumonia and sepsis. Interval History Mr. Szymanski is an 81 year old white man who was in and out ER a couple of times with fatigue and not doing right since 03/17/2021. He was then found to have positive Covid and patchy infiltrations on the CXR and was admitted to in- patient service on 04/03/2021. He had unremarkable CBC on 03/28/2021 while he was at ER, WBC 10.5, Hb 12.6, Hct 37, plt 197. His WBC was going higher during the hospital stay from 10.5 to 20 on 04/06/2021 with smudge cells. In the meantime, he also developed bed sore grade II. He does NOT have SOB and does not require oxygen. He is having diarrhea/loss st ool from the antibiotics. I consulted the patient on: 04/07/21 11:29 Time Seen by Provider: 16:00 Review of Systems Constitutional: see HPI Health Status Allergies Coded Allergies: No Known Drug Allergies (Unverified , 01/22/10) Home Medications Atorvastatin Calcium (Atorvastatin Calcium) 10 Mg Tablet, 10 MG PO HS, (Reported) Clopidogrel Bisulfate (Clopidogrel) 75 Mg Tablet, 75 MG PO DAILY, (Reported) Glimepiride (Glimepiride) 4 Mg Tablet, 4 MG PO DAILY, (Reported) Sennosides (Senokot) 8.6 Mg Tablet, 8.6-17.2 MG PO BID PRN for CONSTIPATION-5TH LINE, (Reported) HSI-Aozntp-Hwifzd Hx Patient Social History Smoking Status: Former Smoker Alcohol Use?: No Have you traveled recently?: No Family Medical History Significant Family History: No Pertinent Family Hx Family History: Patient reports no known family medical history. Physical Exam Vital Signs Vital Signs - First Documented 04/03/21 04/05/21 21:38 18:59 Temp 36.1 Pulse 110 Resp 18 B/P (MAP) 127/78 (94) Pulse Ox 97 O2 Delivery Room Air FiO2 21 Capillary Refill : NONE Height, Weight, BMI Height: 6'0.00" Weight: 198lbs. 9.0oz. 90.081809sd; 25.06 BMI Method:Stated General Appearance: No Apparent Distress HEENT: PERRL/EOMI Respiratory: No Accessory Muscle Use, No Respiratory Distress Cardiovascular: Regular Rate, Rhythm Gastrointestinal: Non Tender, Soft Neurologic/Psychiatric: Alert, Oriented x3 Data Review Labs Laboratory Tests 04/07/21 06:12 Laboratory Tests 04/04/21 19:45: Glucometer 173H 04/05/21 05:15: White Blood Count 19.8H, Red Blood Count 2.77L, Hemoglobin 9.3L, Hematocrit 28L, Mean Corpuscular Volume 101H, Red Cell Distribution Width 15.5H, Mean Platelet Volume 12.8H, Monocytes (%) (Auto) 19H, Neutrophils # (Auto) 9.2H, Lymphocytes # (Auto) 6.4H, Monocytes # (Auto) 3.8H, Immature Granulocyte # (Auto) 0.3H, Sodium Level 133L, Chloride Level 109H, Carbon Dioxide Level 15L, Glucose Level 187H, Calcium Level 7.5L, Aspartate Amino Transf (AST/SGOT) 68H, Total Protein 4.9L, Albumin 2.6L 04/05/21 10:20: Glucometer 179H 04/05/21 15:39: Glucometer 138H 04/05/21 20:14: Glucometer 174H 04/06/21 04:45: White Blood Count 20.8H, Red Blood Count 3.20L, Hemoglobin 10.8L, Hematocrit 33L , Mean Corpuscular Volume 102H, Red Cell Distribution Width 15.9H, Mean Platelet Volume 12.6H, Neutrophils (%) (Auto) 31L, Lymphocytes (%) (Auto) 47H, Monocytes (%) (Auto) 21H, Lymphocytes # (Auto) 9.7H, Monocytes # (Auto) 4.4H, Immature Granulocyte # (Auto) 0.2H, Sodium Level 133L, Carbon Dioxide Level 17L, Glucose Level 159H, Calcium Level 7.7L 04/06/21 11:28: Glucometer 183H 04/06/21 16:05: Glucometer 142H 04/06/21 19:32: Glucometer 147H 04/07/21 04:49: Glucometer 135H 04/07/21 06:12: White Blood Count 16.1H, Red Blood Count 2.73L, Hemoglobin 9.3L, Hematocrit 28L, Mean Corpuscular Volume 102H, Red Cell Distribution Width 16.1H, Mean Platelet Volume 12.4H, Neutrophils (%) (Auto) 27L, Lymphocytes (%) (Auto) 47H, Monocytes (%) (Auto) 25H, Lymphocytes # (Auto) 7.5H, Monocytes # (Auto) 4.0H, Percent Immature Platelet Fraction 14.6H, Carbon Dioxide Level 18L, Glucose Level 145H, Calcium Level 7.5L 04/07/21 11:36: Glucometer 171H 04/07/21 15:34: Glucometer 144H Impression & Plan Impression & Plan IMP: 1. Covid pneumonia multiple patch infiltration 2. Leukocytosis since 03/28/2021, normal diff, normal plts. Most likely due to Covid infection. Normal WBC on 03/28/2021. 3. Anemia since admission 4. Bed sores grade II 5. DM 6. CAD on plavix and ASA Rec: 1. Will check blood smear, stool occult blood. 2. Hold off Lovenox for now. Continue plavix 3. Wound care for bed sore 4. NO indication for bone marrow exam at this point. I will f/u the smear result s. 5. Dr Allen to decide the hospital course and discharge. Please have patient to repeat the CBC in 2-3 weeks and f/u at cancer center with me. YVONNE MULLINS MD Apr 07, 2021 11:32
--- NOTE | 2021-04-07 11:46 | Progress Note - Hospitalist ---
Subjective HPI/CC On Admission Date Seen by Provider: Apr 07, 2021 Time Seen by Provider: 10:20 Samuel Szymanski is an 81 year old male with PMH HTN, T2DM, HLD, who presented with weakness. He has been feeling sick for over a week. He was diagnosed with COVID on 03/28. He is not feeling short of breath. He denies fevers and chills. He denies cough. He denies chest pain. Subjective/Events-last exam He is still feeling weak. He is tired. He denies pain. He is not short of breath. Focused Exam Time of Focused Exam: 22:58 Objective Exam Vital Signs Vital Signs Date Time Temp Pulse Resp B/P (MAP) Pulse Ox O2 Delivery O2 Flow Rate FiO2 04/07/21 11:37 36.4 75 18 87/53 95 Room Air 04/05/21 18:59 21 Capillary Refill : NONE General Appearance: No Apparent Distress, Chronically ill Respiratory: No Respiratory Distress, Decreased Breath Sounds Cardiovascular: Regular Rate, Rhythm, No Murmur Gastrointestinal: Normal Bowel Sounds, Soft Extremity: Normal Inspection, Pedal Edema Neurologic/Psychiatric: Alert, Normal Mood/Affect Skin: Normal Color, Warm/Dry Results/Procedures Lab Laboratory Tests 04/07/21 06:12 Patient resulted labs reviewed. Imaging: Reviewed Imaging Report Assessment/Plan Assessment and Plan Assess & Plan/Chief Complaint Secondary bacterial pneumonia Pneumonia due to COVID-19 Debility CXR with multifocal pneumonia COVID+ 03/28 Not requriing suppelemental oxygen Continue Zosyn PT/OT Consult social work, needs skilled placement Leukocytosis Smudge cells Consult hematology/oncology, Dr. Ferro T2DM Sliding scale insulin HTN HLD Continue home meds DVT prophylaxis: Lovenox Severe sepsis due to pneumonia, resolved Lactic acidosis, resolved Diagnosis/Problems Diagnosis/Problems (1) Severe sepsis Status: Resolved Resolution Date/Time: 04/06/21 @ 10:41 (2) PNA (pneumonia) Status: Acute (3) Pneumonia due to COVID-19 virus Status: Acute (4) Debility Status: Acute (5) Lactic acidosis Status: Resolved Resolution Date/Time: 04/06/21 @ 10:42 (6) T2DM (type 2 diabetes mellitus) Status: Chronic Qualifiers: Diabetes mellitus nursing home insulin use: without nursing home use (7) HLD (hyperlipidemia) Status: Chronic JUJU SMALLS MD Apr 07, 2021 11:46
[2021-04-07 12:12] LABS: ABSOLUTE RETIC # 45 10e9/uL (24-90); RETICULOCYTE % 1.65 % (0.50-2.40)
--- NOTE | 2021-04-07 12:46 | Occupational Ther Daily Note ---
OT Current Status-Daily Note Subjective Pt [employer], requires repetition of commands. Appearance Pt returned to supine in bed, all needs within reach. ADL-Treatment Therapy Code Descriptions/Definitions Functional [place] Measure: 0=Not Assessed/NA 4=Minimal Assistance 1=Total Assistance 5=Supervision or Setup 2=Maximal Assistance 6=Modified [place] 3=Moderate Assistance 7=Complete IndependenceSCALE: Activities may be completed with or without assistive devices. 7-Zhaygzzkna-qkcsxpz completes the activity by him/herself with no assistance from a helper. 5-Set-up or Clean-up Assistance-helper sets up or cleans up; patient completes activity. Roy assists only prior to or following the activity. 4-Supervision or Touching Assistance-helper provides verbal cues and/or touching/steadying and/or contact guard assistance as patient completes activity. Assistance may be provided throughout the activity or intermittently. 3-Partial/Moderate Assistance-helper does LESS THAN HALF the effort. Roy lifts, holds or supports trunk or limbs, but provides less than half the effort. 2-Substantial/Maximal Assistance-helper does MORE THAN HALF the effort. Roy lifts or holds trunk or limbs and provides more than half the effort. 7-Zwjfimxlc-gkjpfu does ALL the effort. Patient does none of the effort to complete the activity. Or, the assistance of 2 or more helpers is required for the patient to complete the activity. If activity was not attempted, code reason: 7-Patient Refused. 9-Not Applicable-not attempted and the patient did not perform the activity before the current illness, exacerbation or injury. 10-Not Attempted due to Environmental Limitations-(lack of equipment, weather restraints, etc.). 88-Not Attempted due to Medical Conditions or Safety Concerns. On/Off Footwear: 1 Toileting Hygiene (QC): 1 Pt laying naked in bed at OT arrival. Able to sit EOB with extra time and Min A. Cues to utilize bed rail to assist in elevating torso. Max a to don/doff bilateral socks after 2 failed attempt. Sight unsteadiness in balance when reaching over or attempting to lift foot off floor. Pt reports fatigue after minimal activity. Able to scoot to HOB with extra time and CGA. Small BM smear noted on chucks pad. He returns to supine with SBA. Able to roll R/L with SBA, dependent for nereida care. 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 2=Patient will verbalize/demonstrate understanding of assistive devices/modifications for ADL. 3=Patient will improve strength/tolerance for activity to enable patient to perform ADL's. OT Education/Plan Problem List/Assessment Assessment: Decreased Activ Tolerance, Decreased Safety Aware, Decreased UE Strength, Impaired Bed Mobility, Impaired Cognition, Impaired Funct Balance, Impaired I ADL's, Impaired Self-Care Skills Discharge Recommendations Plan/Recommendations: Continue POC Treatment Plan/Plan of Care Treatment,Training & Education: Yes Patient would benefit from OT for education, treatment and training to promote independence in ADL's, mobility, safety and/or upper extremity function for ADL's. Plan of Care: ADL Retraining, Functional Mobility, UE Funct Exercise/Act Treatment Duration: Apr 25, 2021 Frequency: 3 times per week (3-5 times per week) Estimated Hrs Per Day: .25 hour per day Agreement: Yes Rehab Potential: Fair Time/GCodes Start Time: 11:13 Stop Time: 11:25 Total Time Billed (hr/min): 12 Billed Treatment Time 1 visit ADL Kimberlee Billings OT Apr 07, 2021 12:46
--- NOTE | 2021-04-07 13:11 | Physical Therapy Daily Note ---
PT Daily Note-Current Subjective Patient in bed pre tx, agrees to PT, has unrated pain on bottom. Patient states his bottom is very sore from having many BM's. Appearance Patient in bed post tx with nurse call, phone, tray, all needs met. Mental Status Patient Orientation: Person, Place, Situation Attachments: IV Transfers SCALE: Activities may be completed with or without assistive devices. 8-Tgqtecdasp-xylsfqm completes the activity by him/herself with no assistance from a helper. 5-Set-up or Clean-up Assistance-helper sets up or cleans up; patient completes activity. [place] assists only prior to or following the activity. 4-Supervision or Touching Assistance-helper provides verbal cues and/or touching/steadying and/or contact guard assistance as patient completes activity. Assistance may be provided throughout the activity or intermittently. 3-Partial/Moderate Assistance-helper does LESS THAN HALF the effort. [place] lifts, holds or supports trunk or limbs, but provides less than half the effort. 2-Substantial/Maximal Assistance-helper does MORE THAN HALF the effort. [place] lifts or holds trunk or limbs and provides more than half the effort. 4-Ydyegaxza-vcador does ALL the effort. Patient does none of the effort to complete the activity. Or, the assistance of 2 or more helpers is required for the patient to complete the activity. If activity was not attempted, code reason: 7-Patient Refused. 9-Not Applicable-not attempted and the patient did not perform the activity before the current illness, exacerbation or injury. 10-Not Attempted due to Environmental Limitations-(lack of equipment, weather restraints, etc.). 88-Not Attempted due to Medical Conditions or Safety Concerns. Lying to Sitting/Side of Bed(Q: 3 Patient mod assist for supine to sit, he got most of the way up before saying that he just cant sit on the side of the bed and layed back down. He says it is too painful to sit on the side of the bed at this time. He agrees to LE exercise. Patient educated on the benefits of OOB activity but he continues to refuse. Exercises Supine Ex: Ankle pumps (LLE only), Quad Set, Heel Slides, Straight leg raise, Hip abd/add Supine Reps: 15 Treatments LE ROM Assessment Current Status: Poor Progress Patient needs to start getting out of bed, poor motivation PT Retirement Goals Retirement Goals PT Retirement Goals Time Frame: Apr 11, 2021 Roll Left & Right (QC): 3 Sit to Lying (QC): 3 Lying-Sitting on Side/Bed(QC): 3 Sit to Stand (QC): 3 Chair/Lpy-pu-Okqvg Xfer(QC): 3 PT Plan Problem List Problem List: Activity Tolerance, Functional Strength, Safety, Balance, Gait, Transfer, Bed Mobility, ROM Treatment/Plan Treatment Plan: Continue Plan of Care Treatment Plan: Bed Mobility, Education, Functional Activity Elias, Functional Strength, Gait, Safety, Therapeutic Exercise, Transfers Treatment Duration: Apr 11, 2021 Frequency: 6 times per week Estimated Hrs Per Day: .25 hour per day Patient and/or Family Agrees t: Yes Safety Risks/Education Patient Education: Correct Positioning, Safety Issues Teaching Recipient: Patient Teaching Methods: Demonstration, Discussion Response to Teaching: Reinforcement Needed Time/GCodes Time In: 1248 Time Out: 1258 Total Billed Treatment Time: 10 Total Billed Treatment 1 visit EX MITCHELL EARLY PT Apr 07, 2021 13:11
[2021-04-07] MEDS: AtorvaSTATin TABLET 10 MG TABLET PO SCH (20:06)
[2021-04-08] MEDS: PIPERACILLIN SODIUM/TAZOBACTAM 4.5 GM in NS (IVPB) 100 ML IV SCH ×3 (03:40→20:46)
[2021-04-08] MEDS: inSUlin ASPART (NovoLOG) 1 UNIT/0.01 ML (CHARGE PER UNIT) SC SCH ×4 (05:40→20:56)
[2021-04-08] MEDS: VITAMIN D3 10 MCG (400 UNITS) TABLET PO SCH (06:23)
[2021-04-08] MEDS: CLOPIDOGREL 75 MG (PLAVIX) TABLET PO SCH (08:38)
[2021-04-08] MEDS: NYSTATIN CREAM (MYCOSTATIN) 30 GM TUBE TP SCH (08:39)
[2021-04-08] MEDS: FOLIC ACID 1 MG TAB PO SCH (08:39)
[2021-04-08] MEDS: DOCUSATE SODIUM 100 MG (COLACE) CAP PO SCH ×2 (08:47→21:17)
[2021-04-08] MEDS: SENNA W/DOCUSATE (SENOKOT S) TABLET PO SCH ×2 (08:47→21:17)
[2021-04-08 11:04] LABS: BASOPHILS % (AUTO) 0 % (0-10); EOSINOPHILS # (AUTO) 0.3 10^3/uL (0.0-0.3); EOSINOPHILS % (AUTO) 2 % (0-10); HEMATOCRIT 29 % (40-54); HEMOGLOBIN 9.5 g/dL (13.3-17.7); LYMPHOCYTES # (AUTO) 5.5 10^3/uL (1.0-4.0); LYMPHOCYTES % (AUTO) 36 % (12-44); MEAN CORPUSCULAR HEMOGLOBIN 34 pg (25-34); MEAN CORPUSCULAR HGB CONC 33 g/dL (32-36); MEAN CORPUSCULAR VOLUME 103 fL (80-99); MEAN PLATELET VOLUME 12.1 fL (9.0-12.2); MONOCYTES # (AUTO) 3.6 10^3/uL (0.0-1.0); MONOCYTES % (AUTO) 23 % (0-12); NEUTROPHILS # (AUTO) 5.9 10^3/uL (1.8-7.8); NEUTROPHILS % (AUTO) 38 % (42-75); PLATELET COUNT 188 10^3/uL (130-400); WHITE BLOOD COUNT 15.4 10^3/uL (4.3-11.0)
--- NOTE | 2021-04-08 11:22 | Progress Note - Hospitalist ---
Subjective HPI/CC On Admission Date Seen by Provider: Apr 08, 2021 Time Seen by Provider: 09:35 Samuel Szymanski is an 81 year old male with PMH HTN, T2DM, HLD, who presented with weakness. He has been feeling sick for over a week. He was diagnosed with COVID on 03/28. He is not feeling short of breath. He denies fevers and chills. H e denies cough. He denies chest pain. Subjective/Events-last exam He is feeling "like hell". He is not in pain. He is not short of breath. He is feeling weak. Focused Exam Time of Focused Exam: 22:58 Objective Exam Vital Signs Vital Signs Date Time Temp Pulse Resp B/P (MAP) Pulse Ox O2 Delivery O2 Flow Rate FiO2 04/08/21 08:32 Room Air 04/08/21 08:00 36.3 73 16 101/57 92 04/05/21 18:59 21 Capillary Refill : NONE General Appearance: No Apparent Distress, Chronically ill Respiratory: Lungs Clear, No Respiratory Distress Cardiovascular: Regular Rate, Rhythm, No Murmur Gastrointestinal: Normal Bowel Sounds, Soft Extremity: Normal Inspection, No Pedal Edema Neurologic/Psychiatric: Alert, Motor Weakness Skin: Normal Color, Warm/Dry Results/Procedures Lab Laboratory Tests 04/08/21 10:47 Patient resulted labs reviewed. Imaging: Reviewed Imaging Report Assessment/Plan Assessment and Plan Assess & Plan/Chief Complaint Secondary bacterial pneumonia Pneumonia due to COVID-19 Debility CXR with multifocal pneumonia COVID+ 03/28 Not requriing suppelemental oxygen Continue Zosyn PT/OT Awaiting skilled placement, referral to [facility] Spinal stenosis Does not want to pursue surgical treatment Continue therapies Leukocytosis Smudge cells Hematology/oncology following, Dr. 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
--- NOTE | 2021-04-08 11:25 | Physical Therapy Daily Note ---
PT Daily Note-Current Subjective Patient in bed pre tx, agrees to PT, has unrated pain in his bottom. Appearance Patient in recliner post tx with nurse call, phone, tray, all needs met, legs elevated and on pillows for heel pressure relief. Mental Status Patient Orientation: Person, Place, Situation Transfers SCALE: Activities may be completed with or without assistive devices. 2-Zzqjrshcci-xdljgdu completes the activity by him/herself with no assistance from a helper. 5-Set-up or Clean-up Assistance-helper sets up or cleans up; patient completes activity. [place] assists only prior to or following the activity. 4-Supervision or Touching Assistance-helper provides verbal cues and/or touching/steadying and/or contact guard assistance as patient completes acti vity. Assistance may be provided throughout the activity or intermittently. 3-Partial/Moderate Assistance-helper does LESS THAN HALF the effort. [place] lifts, holds or supports trunk or limbs, but provides less than half the effort. 2-Substantial/Maximal Assistance-helper does MORE THAN HALF the effort. [place] lifts or holds trunk or limbs and provides more than half the effort. 7-Qyzrxhldh-vlaaxb does ALL the effort. Patient does none of the effort to complete the activity. Or, the assistance of 2 or more helpers is required for the patient to complete the activity. If activity was not attempted, code reason: 7-Patient Refused. 9-Not Applicable-not attempted and the patient did not perform the activity before the current illness, exacerbation or injury. 10-Not Attempted due to Environmental Limitations-(lack of equipment, weather restraints, etc.). 88-Not Attempted due to Medical Conditions or Safety Concerns. Roll Left & Right (QC): 4 Lying to Sitting/Side of Bed(Q: 3 Sit to Stand (QC): 3 Chair/Zrr-os-Pkbhs Xfer(QC): 3 Gait Training Distance: 5' Gait Persons Needed: 1 Gait Assistive Device: FWW min assist, unsteady, uncoordinated steps, slumped posture Exercises Seated Therapy Exercises: Ankle pumps, Long arc quads Seated Reps: 20 Treatments bed mobility and transfers, ambulation, LE strengthening Assessment Current Status: Fair Progress Patient was finally able to get out of bed, min assist for transfers and ambulation PT Residential Goals Residential Goals PT Residential Goals Time Frame: Apr 11, 2021 Roll Left & Right (QC): 3 Sit to Lying (QC): 3 Lying-Sitting on Side/Bed(QC): 3 Sit to Stand (QC): 3 Chair/Grf-gx-Xjocu Xfer(QC): 3 PT Plan Problem List Problem List: Activity Tolerance, Functional Strength, Safety, Balance, Gait, Transfer, Bed Mobility, ROM Treatment/Plan Treatment Plan: Continue Plan of Care Treatment Plan: Bed Mobility, Education, Functional Activity Elias, Functional Strength, Gait, Safety, Therapeutic Exercise, Transfers Treatment Duration: Apr 11, 2021 Frequency: 6 times per week Estimated Hrs Per Day: .25 hour per day Patient and/or Family Agrees t: Yes Safety Risks/Education Patient Education: Gait Training, Transfer Techniques, Correct Positioning, Safety Issues Teaching Recipient: Patient Teaching Methods: Demonstration, Discussion Response to Teaching: Reinforcement Needed Time/GCodes Time In: 1102 Time Out: 1116 Total Billed Treatment Time: 14 Total Billed Treatment 1 visit FA 14' MITCHELL GENTILE PT Apr 08, 2021 11:25
[2021-04-08 11:52] LABS: ANISOCYTOSIS SLIGHT; ELLIPT/OVALOCYTES SLIGHT; EOSINOPHILS % (MANUAL) 2 %; LYMPHOCYTES % (MANUAL) 40 %; MONOCYTES % (MANUAL) 1 %; NEUTROPHILS % (MANUAL) 57 %; NUCLEATED RED BLOOD CELLS 1
[2021-04-08 11:53] LABS: POLYCHROMASIA SLIGHT
[2021-04-08 11:54] LABS: BURR CELLS SLIGHT
--- NOTE | 2021-04-08 11:59 | Occupational Ther Daily Note ---
OT Current Status-Daily Note Subjective Pt up in recliner, agreeable to OT Tx with moderate encouragement. ADL-Treatment Therapy Code Descriptions/Definitions Functional [place] Measure: 0=Not Assessed/NA 4=Minimal Assistance 1=Total Assistance 5=Supervision or Setup 2=Maximal Assistance 6=Modified [place] 3=Moderate Assistance 7=Complete IndependenceSCALE: Activities may be completed with or without assistive devices. 2-Ujrvfiqzla-kgecxnq completes the activity by him/herself with no assistance from a helper. 5-Set-up or Clean-up Assistance-helper sets up or cleans up; patient completes activity. [place] assists only prior to or following the activity. 4-Supervision or Touching Assistance-helper provides verbal cues and/or to uching/steadying and/or contact guard assistance as patient completes activity. Assistance may be provided throughout the activity or intermittently. 3-Partial/Moderate Assistance-helper does LESS THAN HALF the effort. [place] lifts, holds or supports trunk or limbs, but provides less than half the effort. 2-Substantial/Maximal Assistance-helper does MORE THAN HALF the effort. [place] lifts or holds trunk or limbs and provides more than half the effort. 2-Zeteegemn-fcllpr does ALL the effort. Patient does none of the effort to complete the activity. Or, the assistance of 2 or more helpers is required for the patient to complete the activity. If activity was not attempted, code reason: 7-Patient Refused. 9-Not Applicable-not attempted and the patient did not perform the activity before the current illness, exacerbation or injury. 10-Not Attempted due to Environmental Limitations-(lack of equipment, weather restraints, etc.). 88-Not Attempted due to Medical Conditions or Safety Concerns. Other Treatment Pt in recliner, agreeable to OT Tx with moderate encouragement. Pt declined ADLs, but agreeable to UE exercises in order to increase strength and activity tolerance. Pt completed x10 reps each of the following BUE exercises: shoulder flexion, elbow flexion/extension and front punch, rest breaks between. Post tx, pt up in recliner, call light in reach and all needs met. Education OT Patient Education: Correct positioning, Energy conservation, Exercise program, Modified ADL techniques, Progress toward Goal/Update tx plan, Purpose of tx/functional activities, Rehab process Teaching Recipient: Patient Teaching Methods: Discussion Response to Teaching: Verbalize Understanding, Reinforcement Needed OT Metal Plater Goals Metal Plater Goals Time Frame: Apr 25, 2021 Eating (QC): 6 Oral Hygiene (QC): 5 Toileting Hygiene (QC): 4 Shower/Bathe Self (QC): 4 Upper Body Dressing (QC): 5 Lower Body Dressing (QC): 4 On/Off Footwear (QC): 4 Additional Goals: 1-Demonstrate ADL Tasks, 2-Verbalize Understanding, 3- ImproveStrength/Elias 1=Demonstrate adherence to instructed precautions during ADL tasks. 2=Patient will verbalize/demonstrate understanding of assistive devices/modifications for ADL. 3=Patient will improve strength/tolerance for activity to enable patient to perform ADL's. OT Education/Plan Problem List/Assessment Assessment: Decreased Activ Tolerance, Decreased UE Strength, Impaired Funct B alance, Impaired I ADL's, Impaired Self-Care Skills Discharge Recommendations Plan/Recommendations: Continue POC Treatment Plan/Plan of Care Patient would benefit from OT for education, treatment and training to promote independence in ADL's, mobility, safety and/or upper extremity function for ADL's. Plan of Care: ADL Retraining, Functional Mobility, UE Funct Exercise/Act Treatment Duration: Apr 25, 2021 Frequency: 3 times per week (3-5 times per week) Estimated Hrs Per Day: .25 hour per day Agreement: Yes Rehab Potential: Fair Time/GCodes Start Time: 11:45 Stop Time: 11:54 Total Time Billed (hr/min): 9 Billed Treatment Time 1, EX CAROL SNELL OT Apr 08, 2021 11:59
[2021-04-08] MEDS: COLLAGENASE 30 GM (SANTYL) TUBE TP SCH (17:14)
--- NOTE | 2021-04-08 19:31 | Physician Query Clarification ---
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 Pressure ulcer of sacral region, stage 2, present on admission 2. Other explanation of clinical findings 3. Unable to determine (no explanation for clinical findings) Please clarify and document your clinical opinion in the progress notes and discharge summary including the definitive and/or presumptive diagnosis, (suspected or probable), related to the above clinical findings. Please include clinical findings supporting your diagnosis. Delia Fernández MSN, RN Clinical Nurse Esthetician [phone] [email or web address] PHYSICIAN RESPONSE: Based on the clinical findings in the record, please respond to the query above on this document as an addendum. Physician Response: Physician Response 1 If you have questions please contact: Pole Shaver: Ext: Thank you for your time and cooperation. Clinical Nurse Esthetician/Pole Shaver This is a permanent part of the medical record DELIA FERNÁNDEZ Apr 08, 2021 19:31 JUJU SMALLS MD Apr 09, 2021 11:36
[2021-04-08] MEDS: AtorvaSTATin TABLET 10 MG TABLET PO SCH (20:46)
[2021-04-08] MEDS: MICONAZOLE 2% POWDER (DESENEX AF) 90 GM TOP SCH (21:17)
[2021-04-09] MEDS: COLLAGENASE 30 GM (SANTYL) TUBE TP SCH ×3 (04:04→19:54)
[2021-04-09] MEDS: inSUlin ASPART (NovoLOG) 1 UNIT/0.01 ML (CHARGE PER UNIT) SC SCH ×4 (05:18→20:04)
[2021-04-09] MEDS: VITAMIN D3 10 MCG (400 UNITS) TABLET PO SCH (06:04)
[2021-04-09] MEDS: MICONAZOLE 2% POWDER (DESENEX AF) 90 GM TOP SCH ×2 (09:02→19:53)
[2021-04-09] MEDS: SENNA W/DOCUSATE (SENOKOT S) TABLET PO SCH ×2 (09:02→19:53)
[2021-04-09] MEDS: CLOPIDOGREL 75 MG (PLAVIX) TABLET PO SCH (09:02)
[2021-04-09] MEDS: FOLIC ACID 1 MG TAB PO SCH (09:02)
[2021-04-09] MEDS: DOCUSATE SODIUM 100 MG (COLACE) CAP PO SCH ×2 (09:02→19:53)
--- NOTE | 2021-04-09 09:06 | Wound Care Assessment ---
Wound Care Assessment Date Seen by Provider: Apr 09, 2021 Time Seen by Provider: 09:01 Chief Complaint Sacral pressure ulcer HPI 80yo M with history of T2DM consulted for sacral pressure ulcer. Patient is hard of hearing and is a poor historian. Diagnosed with COVID on 03/28/2021. Reports generalized body soreness. Denies any fever, chills, nausea, vomiting, or diarrhea. Past Medical History: Admits Diabetes Type II Smoking Status: Former Smoker Review of Systems General: No Chills, No Night Sweats, No Fatigue HEENT: No Head Aches, No Visual Changes, No Ear Pain Pulmonary: No Dyspnea, No Cough Cardiovascular: No: Chest Pain, Palpitations, Edema Gastrointestinal: No: Nausea, Vomiting, Abdominal Pain, Diarrhea Genitourinary: No Dysuria, No Frequency, No Incontinence Neurological: No: Numbness, Change in speech, Confusion, Seizures Exam Vital Signs Date Time Temp Pulse Resp B/P (MAP) Pulse Ox O2 Delivery O2 Flow Rate FiO2 04/09/21 07:44 36.2 80 18 100/62 94 Room Air 04/05/21 18:59 21 Capillary Refill : NONE General Appearance: no apparent distress, thin HEENT: PERRL/EOMI Neck: supple, normal inspection Cardiovascular: regular rate, rhythm Respiratory: chest non-tender, no respiratory distress, decreased breath sounds Gastrointestinal: non tender, soft Back: No normal inspection Extremities: non-tender, no pedal edema, no calf tenderness Neurologic/Psychiatric: alert, normal mood/affect Skin Problem Location: other (Lower back/sacral area more on R side) Skin Character: lesion Results Laboratory Tests 04/08/21 10:47: White Blood Count 15.4H, Red Blood Count 2.77L, Hemoglobin 9.5L, Hematocrit 29L, Mean Corpuscular Volume 103H, Mean Corpuscular Hemoglobin 34, Mean Corpuscular Hemoglobin Concent 33, Red Cell Distribution Width 16.2H, Platelet Count 188, Mean Platelet Volume 12.1, Immature Granulocyte % (Auto) 1, Neutrophils (%) (Auto) 38L, Lymphocytes (%) (Auto) 36, Monocytes (%) (Auto) 23H, Eosinophils (%) (Auto) 2, Basophils (%) (Auto) 0, Neutrophils # (Auto) 5.9, Lymphocytes # (Auto) 5.5H, Monocytes # (Auto) 3.6H, Eosinophils # (Auto) 0.3, Basophils # (Auto) 0.0, Immature Granulocyte # (Auto) 0.1, Neutrophils % (Manual) 57, Lymphocytes % (Manual) 40, Monocytes % (Manual) 1, Eosinophils % (Manual) 2, Nucleated Red Blo od Cells 1, Smudge Cells MOD, Polychromasia SLIGHT, Anisocytosis SLIGHT, Lottie Cells SLIGHT, Elliptocytes SLIGHT 04/08/21 11:24: Glucometer 174H 04/08/21 16:37: Glucometer 161H 04/08/21 18:50: Stool Occult Blood Immunoassay NEGATIVE 04/08/21 20:00: Glucometer 172H 04/09/21 05:10: Glucometer 122H Microbiology 04/04/21 C. difficile GDH Antigen & Toxins - Final, Complete 04/03/21 Blood Culture - Preliminary, Resulted No growth Assessment/Plan/Dx Sacral pressure ulcer Continue to monitor Reposition patient every few hours Supervisory-Addendum Brief Verification & Attestation Participated in pt care: history, physical Personally performed: exam, history, supervision of care Care discussed with: Medical Student Procedures: n/a Results interpretation: Verified all documentation Please see my own documentation for full details of care BUCKY HAYES Apr 09, 2021 09:06 CATA HAMILTON MD Apr 11, 2021 15:53
--- NOTE | 2021-04-09 09:41 | Physical Therapy Daily Note ---
PT Daily Note-Current Subjective Pt sitting up in bed upon arrival. Pt agrees to PT. Pain Location: No Pain Reported Mental Status Patient Orientation: Person, Place Transfers SCALE: Activities may be completed with or without assistive devices. 2-Ljwrvjdplw-tndeaqv completes the activity by him/herself with no assistance from a helper. 5-Set-up or Clean-up Assistance-helper sets up or cleans up; patient completes activity. [place] assists only prior to or following the activity. 4-Supervision or Touching Assistance-helper provides verbal cues and/or touching/steadying and/or contact guard assistance as patient completes activity. Assistance may be provided throughout the activity or intermittently. 3-Partial/Moderate Assistance-helper does LESS THAN HALF the effort. [place] lifts, holds or supports trunk or limbs, but provides less than half the effort. 2-Substantial/Maximal Assistance-helper does MORE THAN HALF the effort. [place] lifts or holds trunk or limbs and provides more than half the effort. 9-Loogmhkxg-lefzxx does ALL the effort. Patient does none of the effort to complete the activity. Or, the assistance of 2 or more helpers is required for the patient to complete the activity. If activity was not attempted, code reason: 7-Patient Refused. 9-Not Applicable-not attempted and the patient did not perform the activity before the current illness, exacerbation or injury. 10-Not Attempted due to Environmental Limitations-(lack of equipment, weather restraints, etc.). 88-Not Attempted due to Medical Conditions or Safety Concerns. Lying to Sitting/Side of Bed(Q: 3 Sit to Stand (QC): 3 Weight Bearing Full Weight Bearing Full Weight Bearing Gait Training Does the Patient Walk?: Yes Distance: 5' Gait Persons Needed: 1 Gait Assistive Device: FWW Slow but steady gait, keep R LE more forefront while amb. Treatments TF from supine to EOB to standing. Pt amb. short distance to recliner and psitioned to comfort. Pt declines Ex. All needs met, call light in hand. Assessment Current Status: Good Progress Pt demonstrates gained strength. PT Rubber Trimmer Goals [facility] Goals PT Rubber Trimmer Goals Time Frame: Apr 11, 2021 Roll Left & Right (QC): 3 Sit to Lying (QC): 3 Lying-Sitting on Side/Bed(QC): 3 Sit to Stand (QC): 3 Chair/Jfm-mk-Qilzr Xfer(QC): 3 PT Plan Problem List Problem List: Activity Tolerance Treatment/Plan Treatment Plan: Continue Plan of Care Treatment Plan: Bed Mobility, Education, Functional Activity Elias, Functional Strength, Gait, Safety, Therapeutic Exercise, Transfers Treatment Duration: Apr 11, 2021 Frequency: 6 times per week Estimated Hrs Per Day: .25 hour per day Patient and/or Family Agrees t: Yes Safety Risks/Education Patient Education: Transfer Techniques, Correct Positioning Teaching Recipient: Patient Teaching Methods: Discussion Response to Teaching: Verbalize Understanding Time/GCodes Time In: 919 Time Out: 935 Total Billed Treatment Time: 16 Total Billed Treatment 1, FA (16m) CLARE ROMERO LOG SCALER Apr 09, 2021 09:41
--- NOTE | 2021-04-09 11:25 | Progress Note - Hospitalist ---
Subjective HPI/CC On Admission Date Seen by Provider: Apr 09, 2021 Time Seen by Provider: 09:30 Samuel Szymanski is an 81 year old male with PMH HTN, T2DM, HLD, who presented with weakness. He has been feeling sick for over a week. He was diagnosed with COVID on 03/28. He is not feeling short of breath. He denies fevers and chills. He denies cough. He denies chest pain. Subjective/Events-last exam He is sitting in his chair. He worked with therapy today. He denies pain. He denies shortness of breath. Focused Exam Time of Focused Exam: 22:58 Objective Exam Vital Signs Vital Signs Date Time Temp Pulse Resp B/P (MAP) Pulse Ox O2 Delivery O2 Flow Rate FiO2 04/09/21 07:44 36.2 80 18 100/62 94 Room Air 04/05/21 18:59 21 Capillary Refill : NONE General Appearance: No Apparent Distress, Chronically ill Respiratory: Lungs Clear, No Respiratory Distress Cardiovascular: Regular Rate, Rhythm, No Murmur Gastrointestinal: Normal Bowel Sounds, Soft Extremity: Normal Inspection, Non Tender Neurologic/Psychiatric: Alert, Normal Mood/Affect, Motor Weakness Skin: Normal Color, Warm/Dry Results/Procedures Lab Patient resulted labs reviewed. Imaging: Reviewed Imaging Report Assessment/Plan Assessment and Plan Assess & Plan/Chief Complaint Secondary bacterial pneumonia Debility Transition to Augmentin PT/OT Medically stable, awaiting skilled placement, referral to PC&R Spinal stenosis Does not want to pursue surgical treatment Continue therapy Leukocytosis Smudge cells Hematology/oncology following, Dr. Ferro Planning for outpatient follow up and repeat labs T2DM Sliding scale insulin HTN HLD Continue home meds DVT prophylaxis: Lovenox Severe sepsis due to pneumonia, resolved Lactic acidosis, resolved Pneumonia due to COVID-19, resolved Diagnosis/Problems Diagnosis/Problems (1) Severe sepsis Status: Resolved Resolution Date/Time: 04/06/21 @ 10:41 (2) PNA (pneumonia) Status: Acute (3) Pneumonia due to COVID-19 virus Status: Resolved Resolution Date/Time: 04/09/21 @ 11:25 (4) Debility Status: Acute (5) Lactic acidosis Status: Resolved Resolution Date/Time: 04/06/21 @ 10:42 (6) T2DM (type 2 diabetes mellitus) Status: Chronic Qualifiers: Diabetes mellitus half-way insulin use: without oil well services dispatcher use (7) HLD (hyperlipidemia) Status: Chronic (8) Spinal stenosis of lumbar region at multiple levels Status: Chronic (9) Leukocytosis Status: Acute JUJU SMALLS MD Apr 09, 2021 11:25
--- NOTE | 2021-04-09 11:37 | Occupational Ther Daily Note ---
OT Current Status-Daily Note Subjective Pt denies pain, agreeable to treatment. Appearance Left supine in bed, all needs within reach. ADL-Treatment Therapy Code Descriptions/Definitions Functional [place] Measure: 0=Not Assessed/NA 4=Minimal Assistance 1=Total Assistance 5=Supervision or Setup 2=Maximal Assistance 6=Modified [place] 3=Moderate Assistance 7=Complete IndependenceSCALE: Activities may be completed with or without assistive devices. 7-Qflhuquxjc-bwzhcoa completes the activity by him/herself with no assistance from a helper. 5-Set-up or Clean-up Assistance-helper sets up or cleans up; patient completes activity. [place] assists only prior to or following the activity. 4-Supervision or Touching Assistance-helper provides verbal cues and/or touching/steadying and/or contact guard assistance as patient completes activity . Assistance may be provided throughout the activity or intermittently. 3-Partial/Moderate Assistance-helper does LESS THAN HALF the effort. [place] lifts, holds or supports trunk or limbs, but provides less than half the effort. 2-Substantial/Maximal Assistance-helper does MORE THAN HALF the effort. [place] lifts or holds trunk or limbs and provides more than half the effort. 0-Wvtqhhnul-jclajl does ALL the effort. Patient does none of the effort to complete the activity. Or, the assistance of 2 or more helpers is required for the patient to complete the activity. If activity was not attempted, code reason: 7-Patient Refused. 9-Not Applicable-not attempted and the patient did not perform the activity before the current illness, exacerbation or injury. 10-Not Attempted due to Environmental Limitations-(lack of equipment, weather restraints, etc.). 88-Not Attempted due to Medical Conditions or Safety Concerns. Other Treatment Pt sleeping at OT arrival, easy to waken. Agreeable to UE exercises to improve strength and endurance needed for functional tasks. Audible crepitus notable in R shoulder. Min tactile cues for improved technique. All movements performed through full range, but requires cues to continue as pt has tendency to decrease range after ~6-7 reps. Does not appear to be due to fatigue but more related to decreased attention/motivation. 10 x1 in all planes. Education OT Patient Education: Correct positioning, Exercise program, Purpose of tx/functional activities Teaching Recipient: Patient Teaching Methods: Demonstration, Discussion Response to Teaching: Return Demonstration, Reinforcement Needed OT Logger Goals Long-Term Goals Time Frame: Apr 25, 2021 Eating (QC): 6 Oral Hygiene (QC): 5 Toileting Hygiene (QC): 4 Shower/Bathe Self (QC): 4 Upper Body Dressing (QC): 5 Lower Body Dressing (QC): 4 On/Off Footwear (QC): 4 Additional Goals: 1-Demonstrate ADL Tasks, 2-Verbalize Understanding, 3-ImproveStrength/Elias 1=Demonstrate adherence to instructed precautions during ADL tasks. 2=Patient will verbalize/demonstrate understanding of assistive devices/modifications for ADL. 3=Patient will improve strength/tolerance for activity to enable patient to perform ADL's. OT Education/Plan Problem List/Assessment Assessment: Decreased Activ Tolerance, Decreased Safety Aware, Decreased UE Strength, Impaired Funct Balance, Impaired Self-Care Skills Discharge Recommendations Plan/Recommendations: Continue POC Treatment Plan/Plan of Care Treatment,Training & Education: Yes Patient would benefit from OT for education, treatment and training to promote independence in ADL's, mobility, safety and/or upper extremity function for ADL's. Plan of Care: ADL Retraining, Functional Mobility, UE Funct Exercise/Act Treatment Duration: Apr 25, 2021 Frequency: 3 times per week (3-5 times per week) Estimated Hrs Per Day: .25 hour per day Agreement: Yes Rehab Potential: Fair Time/GCodes Start Time: 11:15 Stop Time: 11:27 Total Time Billed (hr/min): 12 Billed Treatment Time 1 visit EX Kimberlee Billings OT Apr 09, 2021 11:37
--- NOTE | 2021-04-09 14:59 | Wound Care Assessment ---
Wound Care Assessment Date Seen by Provider: Apr 09, 2021 Time Seen by Provider: 14:55 Chief Complaint 1. R. inguinal ulcer 2. Stage 2 sacral pressure ulcer HPI 80yo M with history of T2DM consulted for right inguinal ulcer and sacral pressure ulcer. Patient is hard of hearing and is a poor historian. Diagnosed with COVID on 03/28/2021. Reports generalized body soreness. Denies any fever, chills, nausea, vomiting, or diarrhea. Treatment with broad spectrum IV antibiotics (Vanc and Zosyn) upon admission with improvement in leukocytosis. M acrocytic anemia of unclear etiology (Dr. Ferro consulted). Protein energy malnutrition with Albumin of 2.6 noted on labs. Patient is receiving protein shakes. Blood sugars with reasonable control. It is uncertain the inciting event of right groin ulcer (possible from candidal skin infection and moisture related injury). The sacral injury appears to be pressure related. He does have significant generalized weakness. Debridement not performed at bedside. Agree with Santyl. Patient should have wound care follow up as outpatient to further address the inguinal ulceration upon discharge. Past Medical History: Admits Diabetes Type II COPD, COVID pneumonia, HTN Smoking Status: Former Smoker Other Social Hx Daily chewing tobacco Review of Systems General: Fatigue Neurological: Weakness Other systems Patient is extremely poor historian. ROS difficult to obtain. He was unaware of his wounds. Exam Vital Signs Date Time Temp Pulse Resp B/P (MAP) Pulse Ox O2 Delivery O2 Flow Rate FiO2 04/09/21 11:59 36.4 77 18 92/57 92 Room Air 04/05/21 18:59 21 Capillary Refill : NONE General Appearance: no apparent distress, thin HEENT: other (hard of hearing. Poor dentition) Cardiovascular: no edema Respiratory: no respiratory distress, no accessory muscle use Extremities: no pedal edema Neurologic/Psychiatric: alert, other (oriented to person) Skin: normal color, warm/dry Skin Character: other 1. Right groin: 1.8x3.5x0.1cm. The epithelialization is none. There is no tunneling or undermining. Drainage is large and serous, granulation is none, necrotic is large eschar (stable). There is mild erythema of the periwound with heavy moisture burden 2. Sacrum: 0.5x1.0x0.1cm. The epithelialization is none. There is no tunneling or undermining. Drainage is small and serous, granulation is none, necrotic is large and slough. Dry, flaking skin in periwound Results Laboratory Tests 04/08/21 16:37: Glucometer 161H 04/08/21 18:50: Stool Occult Blood Immunoassay NEGATIVE 04/08/21 20:00: Glucometer 172H 04/09/21 05:10: Glucometer 122H 04/09/21 10:57: Glucometer 155H Microbiology 04/04/21 C. difficile GDH Antigen & Toxins - Final, Complete 04/03/21 Blood Culture - Preliminary, Resulted No growth Assessment/Plan/Dx Assessment: 1. Right inguinal ulcer (unclassifiable) 2. Stage 2 sacral pressure ulcer 3. Protein energy malnutrition 4. Diabetes Plan: 1. Agree with Alhajiyl to wound bed and gauze bid with bordered foam dressing. Outpatient wound care follow up would be indicated if discharged prior to eschar removal. 2. Barrier ointment with frequent repositioning. Allevyn bordered foam dressing 3. Protein supplementation 4. Good glycemic control per primary team. CATA HAMILTON MD Apr 09, 2021 14:59
[2021-04-09] MEDS: AUGMENTIN 875 MG TAB (AMOXICILLIN/CLAVULANATE) PO SCH (17:10)
[2021-04-09] MEDS: AtorvaSTATin TABLET 10 MG TABLET PO SCH (19:53)
[2021-04-10] MEDS: ACETAMINOPHEN 325 MG TABLET PO PRN ×2 (01:04→13:24)
[2021-04-10] MEDS: VITAMIN D3 10 MCG (400 UNITS) TABLET PO SCH (06:34)
[2021-04-10] MEDS: inSUlin ASPART (NovoLOG) 1 UNIT/0.01 ML (CHARGE PER UNIT) SC SCH ×2 (06:34→12:26)
[2021-04-10 06:38] LABS: BASOPHILS % (AUTO) 0 % (0-10); EOSINOPHILS # (AUTO) 0.3 10^3/uL (0.0-0.3); EOSINOPHILS % (AUTO) 2 % (0-10); HEMATOCRIT 30 % (40-54); HEMOGLOBIN 9.9 g/dL (13.3-17.7); LYMPHOCYTES # (AUTO) 8.1 10^3/uL (1.0-4.0); LYMPHOCYTES % (AUTO) 49 % (12-44); MEAN CORPUSCULAR HEMOGLOBIN 34 pg (25-34); MEAN CORPUSCULAR HGB CONC 33 g/dL (32-36); MEAN CORPUSCULAR VOLUME 105 fL (80-99); MEAN PLATELET VOLUME 12.6 fL (9.0-12.2); MONOCYTES # (AUTO) 3.9 10^3/uL (0.0-1.0); MONOCYTES % (AUTO) 24 % (0-12); NEUTROPHILS # (AUTO) 4.1 10^3/uL (1.8-7.8); NEUTROPHILS % (AUTO) 25 % (42-75); PLATELET COUNT 194 10^3/uL (130-400); WHITE BLOOD COUNT 16.5 10^3/uL (4.3-11.0)
[2021-04-10 06:45] LABS: POTASSIUM 4.4 MMOL/L (3.6-5.0)
[2021-04-10 06:50] LABS: CREATININE SERUM 0.65 MG/DL (0.60-1.30)
[2021-04-10] MEDS: SENNA W/DOCUSATE (SENOKOT S) TABLET PO SCH (10:02)
[2021-04-10] MEDS: CLOPIDOGREL 75 MG (PLAVIX) TABLET PO SCH (10:02)
[2021-04-10] MEDS: AUGMENTIN 875 MG TAB (AMOXICILLIN/CLAVULANATE) PO SCH (10:02)
[2021-04-10] MEDS: DOCUSATE SODIUM 100 MG (COLACE) CAP PO SCH (10:02)
[2021-04-10] MEDS: FOLIC ACID 1 MG TAB PO SCH (10:02)
[2021-04-10] MEDS: MICONAZOLE 2% POWDER (DESENEX AF) 90 GM TOP SCH (10:03)
[2021-04-10] MEDS: COLLAGENASE 30 GM (SANTYL) TUBE TP SCH (10:03)
--- NOTE | 2021-04-10 10:23 | Physical Therapy Daily Note ---
PT Daily Note-Current Subjective Patient presented laying in bed and agreed to move to the chair with physical therapy. Mental Status Patient Orientation: Person Transfers SCALE: Activities may be completed with or without assistive devices. 5-Teekoduuwl-zcnwduw completes the activity by him/herself with no assistance from a helper. 5-Set-up or Clean-up Assistance-helper sets up or cleans up; patient completes activity. [place] assists only prior to or following the activity. 4-Supervision or Touching Assistance-helper provides verbal cues and/or touching/steadying and/or contact guard assistance as patient completes activity. Assistance may be provided throughout the activity or intermittently. 3-Partial/Moderate Assistance-helper does LESS THAN HALF the effort. [place] li fts, holds or supports trunk or limbs, but provides less than half the effort. 2-Substantial/Maximal Assistance-helper does MORE THAN HALF the effort. [place] lifts or holds trunk or limbs and provides more than half the effort. 8-Iqbscvkoz-qxkmzh does ALL the effort. Patient does none of the effort to complete the activity. Or, the assistance of 2 or more helpers is required for the patient to complete the activity. If activity was not attempted, code reason: 7-Patient Refused. 9-Not Applicable-not attempted and the patient did not perform the activity before the current illness, exacerbation or injury. 10-Not Attempted due to Environmental Limitations-(lack of equipment, weather restraints, etc.). 88-Not Attempted due to Medical Conditions or Safety Concerns. Lying to Sitting/Side of Bed(Q: 4 Sit to Stand (QC): 3 Chair/Rqa-sp-Gmymn Xfer(QC): 3 Patient is CGA for bed mobility and mod assist for sit to stand and transfer to the chair. Weight Bearing Full Weight Bearing Full Weight Bearing Gait Training Does the Patient Walk?: Yes Distance: 15' Walk 10 feet (QC): 3 Gait Assistive Device: FWW Patient ambulated with FWW and mod assist within room. Patient's has increased knee hyperextension with ambulation due to previous stroke. Assessment Patient ambulated with mod assist from EOB to the chair. Patient gait is very ataxic due to previous stroke. Patient is very weak and confused and requires lots of convincing to get up and get out of bed. Patient left post tx in chair with nurse call, phone, and all needs met. PT Graphic Art Sales Representative Goals Group Home Goals PT Graphic Art Sales Representative Goals Time Frame: Apr 11, 2021 Roll Left & Right (QC): 3 Sit to Lying (QC): 3 Lying-Sitting on Side/Bed(QC): 3 Sit to Stand (QC): 3 Chair/Tfb-kq-Bduoj Xfer(QC): 3 PT Plan Problem List Problem List: Activity Tolerance, Functional Strength, Safety, Balance, Gait, Transfer, Bed Mobility, ROM Treatment/Plan Treatment Plan: Continue Plan of Care Treatment Plan: Bed Mobility, Education, Functional Activity Elias, Functional Strength, Gait, Safety, Therapeutic Exercise, Transfers Treatment Duration: Apr 11, 2021 Frequency: 6 times per week Estimated Hrs Per Day: .25 hour per day Patient and/or Family Agrees t: Yes Time/GCodes Time In: 924 Time Out: 933 Total Billed Treatment Time: 11 Total Billed Treatment 1 Visit FA 11 min CINDI ANNA PT Apr 10, 2021 10:23
[2021-04-10] MEDS ORDERED: NF-VITD400 PO (11:32)
[2021-04-10] MEDS ORDERED: SENN1TAB76 PO (11:32)
[2021-04-10] MEDS ORDERED: AMOX1TAB12 PO (11:32)
[2021-04-10] MEDS ORDERED: ATOR10TA66 PO (11:32)
[2021-04-10] MEDS ORDERED: GLIM2TAB4 PO (11:32)
[2021-04-10] MEDS ORDERED: DOCU100C37 PO (11:32)
[2021-04-10] MEDS ORDERED: CLOP75TA28 PO (11:32)
[2021-04-10] MEDS ORDERED: FOLI1TAB33 PO (11:32)
--- NOTE | 2021-04-10 11:42 | Discharge Summary ---
Discharge Summary Hospital Course Hospital Course Date of Admission: Apr 03, 2021 at 22:38 Admission Diagnosis: COVID-19, Pneumonia Family Physician/Provider: Live James DO Date of Discharge: 04/10/21 Discharge Diagnosis: COVID-19, pneumonia, debility, spinal stenosis Hospital Course: Samuel Szymanski is a 80 year old male with T2DM, spinal stenosis, who presented with weakness and was admitted with COVID-19 and pneumonia. He was not requiring any supplemental oxygen. He completed his isolation and was taken out prior to discharge. He was given IV antibiotics and transitioned to oral Augmentin. He has known severe spinal stenosis. He does not want to pursue surgical repair. He will continue skilled therapies at [facility]. His course was complicated by leukocytosis which may be due to his acute infection. He needs repeat labs and follow up with Dr. Ferro in the cancer center in a couple weeks. Labs and Pending Lab Test: Laboratory Tests 04/09/21 15:24: Glucometer 149H 04/09/21 20:03: Glucometer 123H 04/10/21 06:32: Glucometer 126H, White Blood Count 16.5H, Red Blood Count 2.90L, Hemoglobin 9.9L , Hematocrit 30L, Mean Corpuscular Volume 105H, Mean Corpuscular Hemoglobin 34, Mean Corpuscular Hemoglobin Concent 33, Red Cell Distribution Width 17.2H, Platelet Count 194, Mean Platelet Volume 12.6H, Immature Granulocyte % (Auto) 0, Neutrophils (%) (Auto) 25L, Lymphocytes (%) (Auto) 49H, Monocytes (%) (Auto) 24H , Eosinophils (%) (Auto) 2, Basophils (%) (Auto) 0, Neutrophils # (Auto) 4.1, Lymphocytes # (Auto) 8.1H, Monocytes # (Auto) 3.9H, Eosinophils # (Auto) 0.3, Basophils # (Auto) 0.0, Immature Granulocyte # (Auto) 0.1, Sodium Level 135, Potassium Level 4.4, Chloride Level 109H, Carbon Dioxide Level 17L, Anion Gap 9, Blood Urea Nitrogen 8, Creatinine 0.65, Estimat Glomerular Filtration Rate 96, BUN/Creatinine Ratio 12, Glucose Level 127H, Calcium Level 8.0L Microbiology 04/04/21 C. difficile GDH Antigen & Toxins - Final, Complete 04/03/21 Blood Culture - Final, Complete No growth Home Meds Active Stool Softener-Laxative Tablet (Sennosides/Docusate Sodium) 1 Each Tablet 1 Ea P O BID 30 Days Docusate Sodium 100 Mg Capsule 100 Mg PO BID 30 Days Vitamin D3 (Vitamin D) 10 Mcg Tablet 10 Mcg PO DAILY@0700 30 Days Folic Acid 1 Mg Tablet 1 Mg PO DAILY 30 Days Amox Tr-K Clv 875-125 mg Tab (Amoxicillin/Potassium Clav) 1 Each Tablet 875 Mg PO BID WITH MEALS 3 Days Glimepiride 2 Mg Tablet 2 Mg PO DAILY 30 Days Atorvastatin Calcium 10 Mg Tablet 10 Mg PO HS 30 Days Clopidogrel (Clopidogrel Bisulfate) 75 Mg Tablet 75 Mg PO DAILY 30 Days Reported Senokot (Sennosides) 8.6 Mg Tablet 8.6-17.2 Mg PO BID PRN Instructions to Patient/Family Assessment/Instructions Take medications as prescribed. Follow up with your PCP. Continue therapies. Return with worsening shortness of breath, weakness, or if you feel like you are getting worse. Follow Up Appt.: one week with Dr. James Skilled NF Admit to: [facility] Certification (SNF) I certify that SNF services are required to be given on an inpatient basis because of the above named patient's need for usp care on a continuing basis for the conditions(s) for which he/she was receiving inpatient hospital services prior to his/her transfer to the SNF. Oxygen Delivery Method: Room Air Discharge Diet: ADA Diet Daily Activity as Tolerated: Yes Resuscitation Status: Full Code Cecy Smalls Apr 10, 2021 11:33 Discharge Physical Exam General: Alert, Other (chronically ill) HEENT: Atraumatic, Mucous Memb Moist/[place] Lungs: Clear to Auscultation, Normal Air Movement Heart: Regular Rate, No Murmurs Abdomen: Soft, No Tenderness Extremities: No Edema Neuro: Normal Speech, Other (motor weakness) Psych/Mental Status: Mental Status NL, Other (depressed affect) CECY SMALLS MD Apr 10, 2021 11:38
[2021-04-10] MEDS ORDERED: inSUlin ASPART (NovoLOG) 1 UNIT/0.01 ML (CHARGE PER UNIT) ONE (12:20)
[2021-04-10 13:30] VITALS: BP 101/62
--- NOTE | 2021-04-10 13:43 | Occupational Ther Daily Note ---
OT Current Status-Daily Note Subjective Pt alert, sitting at recliner when OT entered. Pt agreed to therapy. No c/o pain reported. Mental Status/Objective Patient Orientation: Person, Place, Time, Situation ADL-Treatment Therapy Code Descriptions/Definitions Functional [place] Measure: 0=Not Assessed/NA 4=Minimal Assistance 1=Total Assistance 5=Supervision or Setup 2=Maximal Assistance 6=Modified [place] 3=Moderate Assistance 7=Complete IndependenceSCALE: Activities may be completed with or without assistive devices. 1-Efgbrzfzwk-hwfeoej completes the activity by him/herself with no assistance from a helper. 5-Set-up or Clean-up Assistance-helper sets up or cleans up; patient completes activity. [place] assists only prior to or following the activity. 4-Supervision or Touching Assistance-helper provides verbal cues and/or touching/steadying and/or contact guard assistance as patient completes activity. Assistance may be provided throughout the activity or intermittently. 3-Partial/Moderate Assistance-helper does LESS THAN HALF the effort. [place] lifts, holds or supports trunk or limbs, but provides less than half the effort. 2-Substantial/Maximal Assistance-helper does MORE THAN HALF the effort. [place] lifts or holds trunk or limbs and provides more than half the effort. 9-Dvnqezlqo-sngkea does ALL the effort. Patient does none of the effort to complete the activity. Or, the assistance of 2 or more helpers is required for the patient to complete the activity. If activity was not attempted, code reason: 7-Patient Refused. 9-Not Applicable-not attempted and the patient did not perform the activity before the current illness, exacerbation or injury. 10-Not Attempted due to Environmental Limitations-(lack of equipment, weather restraints, etc.). 88-Not Attempted due to Medical Conditions or Safety Concerns. Other Treatment When asked if pt would participate in BUE arm exercises, pt stated that is tired of it. Nrsing entered room and asked if pt would like to move from recliner to bed, pt agreed. Pt sit-stand from recliner with Mod A. Pt transferred to EOB with Mod A. Pt required min A to swing BLE onto bed. After session, pt laying in bed with HOB raised. Nrsing present in room. All needs met and call light in reach. Education OT Patient Education: Correct positioning, Energy conservation, Transfer techniques Teaching Recipient: Patient Teaching Methods: Demonstration, Discussion Response to Teaching: Verbalize Understanding, Return Demonstration OT Screening Unit Registered Nurse Goals Custodial Goals Time Frame: Apr 25, 2021 Eating (QC): 6 Oral Hygiene (QC): 5 Toileting Hygiene (QC): 4 Shower/Bathe Self (QC): 4 Upper Body Dressing (QC): 5 Lower Body Dressing (QC): 4 On/Off Footwear (QC): 4 Additional Goals: 1-Demonstrate ADL Tasks, 2-Verbalize Understanding, 3- ImproveStrength/Elias 1=Demonstrate adherence to instructed precautions during ADL tasks. 2=Patient will verbalize/demonstrate understanding of assistive devices/modifications for ADL. 3=Patient will improve strength/tolerance for activity to enable patient to perform ADL's. OT Education/Plan Problem List/Assessment Assessment: Decreased Activ Tolerance, Decreased UE Strength, Impaired I ADL's, Impaired Self-Care Skills Discharge Recommendations Plan/Recommendations: Continue POC Treatment Plan/Plan of Care Patient would benefit from OT for education, treatment and training to promote independence in ADL's, mobility, safety and/or upper extremity function for ADL's. Plan of Care: ADL Retraining, Functional Mobility, UE Funct Exercise/Act Treatment Duration: Apr 25, 2021 Frequency: 3 times per week (3-5 times per week) Estimated Hrs Per Day: .25 hour per day Agreement: Yes Rehab Potential: Fair Time/GCodes Start Time: 13:00 Stop Time: 13:12 Total Time Billed (hr/min): 12 Billed Treatment Time 1 visit- FA 1 (12 mins) MAGGIE RAYGOZA Apr 10, 2021 13:43
== END 2021-04-10 15:30 | DRG 871 ==
LOC: EDUNIT# 21:38 → ER 21:41 → EDBD 21:41 → 4TH 22:38 → EDBD 22:38 → ICU 23:16 → 4TH 04-05 13:08
PROVIDERS: ADMIT Internal Medicine; ATTEND Internal Medicine
DX: A41.89 Other specified sepsis (principal); U07.1 COVID-19; J12.82 Pneumonia due to coronavirus disease 2019; J15.9 Unspecified bacterial pneumonia; E87.2 Acidosis; E46 Unspecified protein-calorie malnutrition; Z79.84 Long term (current) use of oral hypoglycemic drugs; Z79.899 Other long term (current) drug therapy; I10 Essential (primary) hypertension; E11.9 Type 2 diabetes mellitus without complications; H40.9 Unspecified glaucoma; R53.81 Other malaise; M48.061 Spinal stenosis, lumbar region without neurogenic claudication; F17.210 Nicotine dependence, cigarettes, uncomplicated; L89.152 Pressure ulcer of sacral region, stage 2; E78.5 Hyperlipidemia, unspecified; D64.9 Anemia, unspecified; I25.10 Atherosclerotic heart disease of native coronary artery without angina pectoris; D72.829 Elevated white blood cell count, unspecified; Z68.25 Body mass index [BMI] 25.0-25.9, adult
CPT/HCPCS: 36415; 71045; 80048; 80053; 82274; 82306; 82607; 82746; 82947; 83540; 83550; 83605; 83615; 83880; 84100; 84145; 84439; 84443; 84550; 85007; 85025; 85027; 85045; 85055; 85610; 87040; 87324; 87449; 94640; 96361; 96365

== ENCOUNTER 2021-04-18 23:26 | Inpatient (IN) | payer MEDICARE ==
[~2021-04-18] VITALS: Ht 193 cm; Wt 78.0 kg
[~2021-04-18 23:26] MED LIST changes: +AMOX1TAB12 PO; +CLOP75TA28 PO; +DOCU100C37 PO; +FOLI1TAB33 PO; +GLIM2TAB4 PO; +GLIM4TAB5 PO; +NF-VITD400 PO; +SENN-36 PO
--- NOTE | 2021-04-18 23:49 | ED General ---
General Chief Complaint: General Problems/Pain Stated Complaint: AMS,BACK PAIN,TEMP Source of Information: Patient Exam Limitations: Other (AOx1) (SHRUTI JIM MED STUDENT) History of Present Illness Date Seen by Provider: Apr 18, 2021 Time Seen by Provider: 23:32 Initial Comments Mr Szymanski is a 80yo male w/ pmh [place] DMII that presents today form [facility] due to AMS and fever. Document from facility states he was having some sort of hallucination and had a temperature of 100.0. He is only oriented to person in exam room, nurse is familiar with patient and states he has been able to answer orientation questions recently and this is new for him. He is unsure why he is here. States he is only in pain due to his chronic back problems. He does have a pressure wound in his R groin that was concerning to the facility. On exam it was bandaged with clean bandage, there is some drainage but minimal erythema with a pink looking wound base with granulation tissue. Appears to be a bit hypotensive 95/63 HR 95. Dtates he doesn't drink, smoke, or do drugs. Glucose is 97 (SHRUTI JIM MED STUDENT) Timing/Duration: 1-3 Hours Severity: Moderate Associated Systoms: Fever/Chills (Altered mental status), Weakness, Other (GIOVANI BABCOCK MD) Allergies and Home Medications Allergies Coded Allergies: No Known Drug Allergies (Unverified , 01/22/10) Patient Home Medication List Home Medication List Reviewed: Yes (GIOVANI BABCCOK MD) Amoxicillin/Potassium Clav (Amox Tr-K Clv 875-125 mg Tab) 1 Each Tablet, 875 MG PO BID WITH MEALS Prescribed by: JUJU SMALLS on 04/10/211131 Atorvastatin Calcium (Atorvastatin Calcium) 10 Mg Tablet, 10 MG PO HS Prescribed by: JUJU SMALLS on 04/10/21 113 Clopidogrel Bisulfate (Clopidogrel) 75 Mg Tablet, 75 MG PO DAILY Prescribed by: JUJU SMALLS on 04/10/21 113 Docusate Sodium (Docusate Sodium) 100 Mg Capsule, 100 MG PO BID Prescribed by: JUJU SMALLS on 04/10/21 113 Folic Acid (Folic Acid) 1 Mg Tablet, 1 MG PO DAILY Prescribed by: JUJU SMALLS on 04/10/211131 Glimepiride (Glimepiride) 2 Mg Tablet, 2 MG PO DAILY Prescribed by: JUJU SMALLS on 04/10/21 113 Sennosides/Docusate Sodium (Stool Softener-Laxative Tablet) 1 Each Tablet, 1 EA PO BID Prescribed by: JUJU SMALLS on 04/10/211131 Vitamin D (Vitamin D3) 10 Mcg Tablet, 10 MCG PO DAILY@0700 Prescribed by: JUJU SMALLS on 04/10/211131 Review of Systems Review of Systems Constitutional: No chills, No fever EENTM: No hearing loss, No vision loss Respiratory: No cough; short of breath (chronic); No wheezing Cardiovascular: No chest pain, No palpitations Gastrointestinal: No abdominal pain, No constipation, No diarrhea, No nausea, No vomiting Genitourinary: No frequency, No hematuria Musculoskeletal: No joint pain, No joint swelling Skin: No pruritus, No rash Psychiatric/Neurological: Denies Headache, Denies Numbness (SHRUTI JIM) Constitutional: fever, weakness Respiratory: No cough; short of breath (chronic) Cardiovascular: No chest pain, No edema Musculoskeletal: back pain; No neck pain Review of systems limited due to poor historian and some confusion. (GIOVANI BABCOCK MD) Past Hohrqed-[place]-Cfpvxm Hx Patient Social History Tobacco Use?: No Substance use?: No Alcohol Use?: No (SHRUTI JIM) Tobacco Use?: No Use of E-Cig and/or Vaping dev: No Alcohol Use?: No (GIOVANI BABCOCK MD) Immunizations Up To Date PED Vaccines UTD: No First/Initial COVID19 Vaccinat: NONE Second COVID19 Vaccination Gurmeet: no Third COVID19 Vaccination Date: no (SHRUTI JIM) Past Medical History Surgery/Hospitalization HX: BACK PAIN, SPINAL STENOSIS, NIDDM, GLAUCOMA, HIGH CHOLESTEROL Surgeries: Yes (patient said he doesn't remember what surgery he had) Hypertension Reproductive Disorders: No Sexually Transmitted Disease: No HIV/AIDS: No Diabetes, Non-Insulin dep Glaucoma (SHRUTI JIM) Family Medical History Reviewed Nursing Family Hx (GIOVANI BABCOCK MD) Patient reports no known family medical history. No Pertinent Family Hx (HERNÁN,SHRUTI MED STUDENT) No Pertinent Family Hx (GIOVANI BABCOCK MD) Physical Exam-Suspected Sepsis Physical Exam Vital Signs Vital Signs - First Documented 04/18/21 04/19/21 04/19/21 23:34 03:56 22:05 Temp 36.8 Pulse 93 Resp 24 B/P (MAP) 95/63 (74) Pulse Ox 97 O2 Delivery Room Air O2 Flow Rate 15.00 (GIOVANI BABCOCK MD) Vital Signs Capillary Refill : (SHRUTI JIM [employer] STUDENT) Height, Weight, BMI Height: 6'0.00" Weight: 198lbs. 9.0oz. 90.147805ow; 25.06 BMI Method:Stated General Appearance: No Apparent Distress, Thin, Other (Only oriented to person) Eyes: Bilateral Eye PERRL, Bilateral Eye EOMI HEENT: PERRL/EOMI, Other (mucous membranes) Respiratory: Chest Non Tender, Lungs Clear, Normal Breath Sounds, No Accessory Muscle Use, No Respiratory Distress Cardiovascular: Regular Rate, Rhythm, No Edema, No Murmur, Normal Peripheral Pulses Gastrointestinal: Normal Bowel Sounds, No Organomegaly, No Pulsatile Mass, Soft, Tenderness (mild tenderness on deep palpation of RLQ) Extremity: Non Tender, No Calf Tenderness, No Pedal Edema Neurologic/Psychiatric: Alert; No Oriented x3; Other (Only oriented to self ) Skin: normal color, warm/dry, other (There is a covered pressure ulcer in the R groin area. It has a pink base with very minimal surrounding erythema. There is some drainage and granulation tissue. ) (SHRUTI JIM STUDENT) General Appearance: No Apparent Distress, Chronically ill, Thin HEENT: PERRL/EOMI, Other (mucous membranes dry) Respiratory: Lungs Clear, Normal Breath Sounds Cardiovascular: Regular Rate, Rhythm, No Murmur Gastrointestinal: Non Tender, Soft Back: Normal Inspection, No CVA Tenderness, No Vertebral Tenderness Extremity: Non Tender, No Calf Tenderness, No Pedal Edema Neurologic/Psychiatric: Alert, Other (Only oriented to self ) Skin: normal color, warm/dry, other (There is a covered pressure ulcer in the R groin area. It has a pink base with very minimal surrounding erythema. There is some drainage and granulation tissue. ) (GIOVANI BABCOCK MD) Focused Exam Sepsis Stage: Septic Shock Possible Source: Genitouriary Lactate Level 04/18/21 23:56: Lactic Acid Level 1.63 (GIOVANI BABCOCK MD) Time of Focused Exam: 04:00 Respiratory: Lungs Clear Cardiovascular: Regular Rate, Rhythm Capillary Refill: Less Than 3 Seconds Peripheral Pulses: 2+ Dorsalis Pedis (R), 2+ Left Dors-Pedis (L), 2+ Radial Pulses (R), 2+ Radial Pulses (L) Skin: normal color, warm/dry Lactic Acid Level (GIOVANI BABCOCK MD) Within 3hrs of presentation: Admin fluids, Admin ABX, Blood cultures prior to ABX's, Lactate level (GIOVANI BABCOCK MD) Procedures/Interventions Lumen: triple Central Line Procedure: betadine prep, sterile drapes applied, sterile dressing applied Position: internal jugular (R) Anesthesia: Lidocaine Volume Anesthetic (ccs): 5 Complications: none Post Position: sutured, good blood return, position confirmed w/ CXR Placed via ultrasound guidance x1 stick without complications. Confirmed with chest x-ray. Good flash and return. Seldinger technique used. Tolerated procedure well with no complications. (GIOVANI BABCOCK MD) Progress/Results/Core Measures Suspected Sepsis SIRS Temperature: Pulse: Respiratory Rate: Laboratory Tests 04/18/21 23:43: White Blood Count 15.1H Blood Pressure / Mean: 04/18/21 23:56: Lactic Acid Level 1.63 Laboratory Tests 04/18/21 23:43: Creatinine 0.77, INR Comment 1.4, Platelet Count 197, Total Bilirubin 2.4H (SHRUTI JIM MED STUDENT) Results/Orders Lab Results Laboratory Tests Test 04/19/21 05:00 04/19/21 22:55 Range/Units White Blood Count 17.7 H 4.3-11.0 10^3/uL Red Blood Count 2.73 L 4.30-5.52 10^6/uL Hemoglobin 9.5 L 13.3-17.7 g/dL Hematocrit 28 L 40-54 % Mean Corpuscular Volume 103 H 80-99 fL Mean Corpuscular Hemoglobin 35 H 25-34 pg Mean Corpuscular Hemoglobin Concent 34 32-36 g/dL Red Cell Distribution Width 18.1 H 10.0-14.5 % Platelet Count 214 130-400 10^3/uL Mean Platelet Volume 11.5 9.0-12.2 fL Immature Granulocyte % (Auto) 0 % Neutrophils (%) (Auto) 52 42-75 % Lymphocytes (%) (Auto) 34 12-44 % Monocytes (%) (Auto) 13 H 0-12 % Eosinophils (%) (Auto) 0 0-10 % Basophils (%) (Auto) 0 0-10 % Neutrophils # (Auto) 9.2 H 1.8-7.8 10^3/uL Lymphocytes # (Auto) 6.0 H 1.0-4.0 10^3/uL Monocytes # (Auto) 2.4 H 0.0-1.0 10^3/uL Eosinophils # (Auto) 0.0 0.0-0.3 10^3/uL Basophils # (Auto) 0.0 0.0-0.1 10^3/uL Immature Granulocyte # (Auto) 0.1 0.0-0.1 10^3/uL Sodium Level 132 L 135-145 MMOL/L Potassium Level 3.5 L 3.6-5.0 MMOL/L Chloride Level 104 98-107 MMOL/L Carbon Dioxide Level 12 L 21-32 MMOL/L Anion Gap 16 H 5-14 MMOL/L Blood Urea Nitrogen 10 7-18 MG/DL Creatinine 0.75 0.60-1.30 MG/DL Estimat Glomerular Filtration Rate 92 BUN/Creatinine Ratio 13 Glucose Level 137 H 70-105 MG/DL Calcium Level 8.4 L 8.5-10.1 MG/DL Blood Gas Puncture Site UNKNOWN Blood Gas Patient Temperature 36.7 Arterial Blood pH 7.10 *L 7.37-7.43 Arterial Blood Partial Pressure CO2 10 *L 35-45 MMHG Arterial Blood Partial Pressure O2 345 H 79-93 MMHG Arterial Blood HCO3 3 *L 23-27 MMOL/L Arterial Blood Total CO2 3.3 *L 21.0-31.0 MMOL/L Arterial Blood Oxygen Saturation 99 94-100 % Arterial Blood Base Excess -25.5 L -2.5-2.5 MMOL/L Rodrick Test UNKNOWN Blood Gas Ventilator Setting NA Blood Gas Inspired Oxygen UNKNOWN (GIOVANI BABCOCK MD) Micro Results Microbiology 04/19/21 MRSA Screen - Final, Complete MRSA not isolated (GIOVANI BABCOCK MD) My Orders (GIOVANI BABCOCK MD) Medications Given in ED (GIOVANI BABCOCK MD) Vital Signs/I&O (GIOVANI BABCOCK MD) Vital Signs/I&O Capillary Refill : (SHRUTI JIM MED STUDENT) Progress Note : Time: 23:50 Progress Note Pt was seen and examined, was not oriented. He is a diabetic, current sugar was 97. Afebrile. Concerning for possible sepesis due to AMS, Blood pressure and tachycardia. Will do sepsis workup, start fluids as well. 0023: CBC shows white count of 15. Chronically low sodium is a bit lower than baseline of low 130's and is 127 0149: UA complete and shows large amounts of bacteria in urine. Will start abx. (SHRUTI JIM MED STUDENT) Progress Note : Progress Note I have seen and evaluated the patient and agree with above except as indicated. I have directed the plan of care. Patient is here with report of fever of 100.0 as well and is altered mental status and some confusion. Was complaining of back pain but does have chronic spinal stenosis he does not want to pursue surgery for. Denies dysuria or diarrhea. He is somewhat confused especially to time and situation and was not able to accurately recall the events of this evening. States that he was seen in physical therapy and then wanted to do that at his house and they sent him here. This is not the story that way have from long-term care facility. His main complaint is back pain. Blood pressure low normal on arrival. Afebrile on arrival. Evaluation as above. Plan for sepsis protocol with LR 1 L bolus. 0045: I have added additional labs and normal saline 500 mL bolus with hydrocodone 5/325 1 tab p.o. now. Monitor patient. 0140: Patient's blood pressure has now improved and in fact is now below 90 systolic. LR 1 L bolus ordered. Lactic acid is not greater than 2. We are pending UA. 0150: UA processed and there is concerns for urinary tract infectio n and this may be the source of infection and white count. Rocephin 1 g IV ordered. 0240: Patient has persistent hypotension. I have spoken with the eICU and they accept him in consult. We will pursue central line if blood pressure is not improving with the fluid. He is approaching 2.5 L total with initial 1 L of LR, 500 and normal saline to follow and then repeat LR 1 L bolus. 0330: Central line has been placed via ultrasound guidance. See procedure note. I have added normal saline 500 mL bolus and chest x-ray for confirmation. We will initiate norepinephrine and titrate to systolic greater than 90 and MAP greater than 65. All findings and concerns have been discussed with the patient. He consented for central line. Blood pressure is now upper 80s systolic. We will continue to monitor. To be admitted to the ICU. 0341: Chest x-ray does show some vascular prominence so we are approaching the limit of fluids at this point. We will initiate norepinephrine. Patient is full code. 0342: I did discuss the case with Dr. Deras and she accepts patient for admission, inpatient status. We will initiate inpatient sepsis protocol orders and continue Rocephin as well as norepinephrine as needed. To be admitted to ICU. 0357: I have discussed the case with his daughter, Kanwal at [phone] and updated her on the case. She appreciates the update. Patient had requested we call her and he appreciates that we have. 0400: Blood pressure 99/60 with heart rate of 80 and O2 sat 95% on room air. I attest to focus exam at this time. Patient did receive 3 L of IV fluid which amounts to 30 mL/kg we will switch to norepinephrine due to increasing vascular prominence of the lungs concerning for pulmonary edema from fluid. We will continue IV fluids at 150 an hour for sepsis protocol. (GIOVANI BABCOCK MD) Diagnostic Imaging Diagonstic Imaging: Xray Plain Films/CT/US/NM/MRI: chest Comments No obvious focal infiltrate and improved from previous. Reviewed: Reviewed by Me Diagonstic Imaging: Xray Plain Films/CT/US/NM/MRI: chest Comments Central line in good position. Increased vascular prominence of the lungs noted. Reviewed: Reviewed by Me (GIOVANI BABCOCK MD) Critical Care Note Critical Care Start Time: 23:32 Stop Time: 03:58 Total Time (minutes) 45 Progress Critical care time excludes separately billable events including central line placement. Time spent on evaluation, management, report to admitting physician and consultants, discussion with family and reevaluation of the patient for septic shock. See progress note for details. (GIOVANI BABCOCK MD) Departure Communication (Admissions) Time/Spoke to Admitting Phy: 03:44 Time/Spoke to Consulting Phy: 02:40 (GIOVANI BABCOCK MD) Impression Primary Impression: Septic shock Additional Impressions: UTI (urinary tract infection) Qualified Codes: N30.00 - Acute cystitis without hematuria Right groin wound Qualified Codes: S31.109D - Unspecified open wound of abdominal wall, unspecified quadrant without penetration into peritoneal cavity, subsequent encounter Disposition: ADMITTED INPATIENT Condition: Critical Admissions Decision to Admit Reason: Admit from ER (General) Decision to Admit/Date: Apr 19, 2021 Time/Decision to Admit Time: 02:40 (GIOVANI BABCOCK MD) Departure-Patient Inst. Referrals: MINESH WEISS DO (PCP/Family) Primary Care Physician SHRUTI JIM MED STUDENT Apr 18, 2021 23:49 GIOVANI BABCOCK MD Apr 19, 2021 00:58
[2021-04-18] MEDS ORDERED: LACTATED RINGERS 1,000 ML IV STA (23:50)
[2021-04-18 23:58] LABS: BASOPHILS % (AUTO) 0 % (0-10); EOSINOPHILS % (AUTO) 0 % (0-10); HEMATOCRIT 30 % (40-54); HEMOGLOBIN 10.3 g/dL (13.3-17.7); LYMPHOCYTES # (AUTO) 5.8 10^3/uL (1.0-4.0); LYMPHOCYTES % (AUTO) 39 % (12-44); MEAN CORPUSCULAR HEMOGLOBIN 35 pg (25-34); MEAN CORPUSCULAR HGB CONC 34 g/dL (32-36); MEAN CORPUSCULAR VOLUME 101 fL (80-99); MEAN PLATELET VOLUME 11.8 fL (9.0-12.2); MONOCYTES # (AUTO) 0.4 10^3/uL (0.0-1.0); MONOCYTES % (AUTO) 2 % (0-12); NEUTROPHILS # (AUTO) 8.9 10^3/uL (1.8-7.8); NEUTROPHILS % (AUTO) 58 % (42-75); PLATELET COUNT 197 10^3/uL (130-400); WHITE BLOOD COUNT 15.1 10^3/uL (4.3-11.0)
[2021-04-19 00:12] LABS: ALBUMIN 3.3 GM/DL (3.2-4.5); POTASSIUM 3.9 MMOL/L (3.6-5.0)
[2021-04-19 00:13] LABS: CALCIUM 8.5 MG/DL (8.5-10.1); INR 1.4 (0.8-1.4); PROTHROMBIN TIME PATIENT 17.1 SEC (12.2-14.7)
[2021-04-19 00:14] LABS: TOTAL PROTEIN 6.4 GM/DL (6.4-8.2)
[2021-04-19 00:16] LABS: BILIRUBIN,TOTAL 2.4 MG/DL (0.1-1.0)
[2021-04-19 00:17] LABS: BAND NEUTROPHILS 10 %; LYMPHOCYTES % (MANUAL) 19 %; MONOCYTES % (MANUAL) 1 %; NEUTROPHILS % (MANUAL) 70 %
[2021-04-19 00:18] LABS: CREATININE SERUM 0.77 MG/DL (0.60-1.30)
[2021-04-19] MEDS ORDERED: NS IV 500 ML 500 ML IV ONE ×2 (00:45→03:30)
[2021-04-19] MEDS ORDERED: HYDROcodone/APAP 5 MG/325 MG (LORTAB) TAB PO ONE (00:45)
[2021-04-19 01:31] LABS: BILIRUBIN,URINE NEGATIVE (NEGATIVE); CLARITY,URINE CLEAR; COLOR,URINE YELLOW; GLUCOSE, URINE (UA) NEGATIVE (NEGATIVE); KETONES,URINE 1+ (NEGATIVE); LEUKOCYTE ESTERASE ,URINE 1+ (NEGATIVE); NITRITE,URINE NEGATIVE (NEGATIVE); PROTEIN,URINE TRACE (NEGATIVE)
[2021-04-19] MEDS ORDERED: LACTATED RINGERS 1,000 ML IV STA (01:40)
[2021-04-19 01:41] LABS: BACTERIA,URINE LARGE /HPF; RBC,URINE 0-2 /HPF; SQUAMOUS EPITHELIAL CELL,UR 0-2 /HPF
[2021-04-19] MEDS ORDERED: cefTRIAXone 1 GM PRE-MIX 50 ML IV STA (01:50)
[2021-04-19] MEDS ORDERED: NOREPINEPHRINE 8 MG/250 ML 250 ML IV SCH (03:30)
[2021-04-19] MEDS ORDERED: LACTATED RINGERS 1,000 ML IV ONE (04:22)
[2021-04-19 05:15] LABS: BASOPHILS % (AUTO) 0 % (0-10); EOSINOPHILS % (AUTO) 0 % (0-10); HEMATOCRIT 28 % (40-54); HEMOGLOBIN 9.5 g/dL (13.3-17.7); LYMPHOCYTES % (AUTO) 34 % (12-44); MEAN CORPUSCULAR HEMOGLOBIN 35 pg (25-34); MEAN CORPUSCULAR HGB CONC 34 g/dL (32-36); MEAN CORPUSCULAR VOLUME 103 fL (80-99); MEAN PLATELET VOLUME 11.5 fL (9.0-12.2); MONOCYTES # (AUTO) 2.4 10^3/uL (0.0-1.0); MONOCYTES % (AUTO) 13 % (0-12); NEUTROPHILS # (AUTO) 9.2 10^3/uL (1.8-7.8); NEUTROPHILS % (AUTO) 52 % (42-75); PLATELET COUNT 214 10^3/uL (130-400); WHITE BLOOD COUNT 17.7 10^3/uL (4.3-11.0)
[2021-04-19] MEDS ORDERED: EPINEPHrine 1 MG INJECTION 4 MG in NS (IVPB) 248 ML IV SCH (05:15)
[2021-04-19] MEDS: NOREPINEPHRINE 8 MG/250 ML 250 ML IV SCH ×2 (05:26→15:28)
[2021-04-19] MEDS: LACTATED RINGERS 1,000 ML IV SCH ×3 (05:26→18:19)
[2021-04-19] MEDS: VASOPRESSIN INJECTION 20 UNIT in NS (IVPB) 100 ML IV SCH ×2 (05:27→11:29)
[2021-04-19 05:35] LABS: POTASSIUM 3.5 MMOL/L (3.6-5.0)
[2021-04-19 05:36] LABS: CALCIUM 8.4 MG/DL (8.5-10.1)
[2021-04-19 05:41] LABS: CREATININE SERUM 0.75 MG/DL (0.60-1.30)
[2021-04-19] MEDS ORDERED: POTASSIUM CL 10MEQ/50ML IVPB 50 ML IV SCH (06:00)
[2021-04-19] MEDS ORDERED: MAGNESIUM 1 GM/100 ML IVPB 100 ML IV SCH (06:00)
[2021-04-19] MEDS ORDERED: KCL 20 MEQ TAB (K-DUR) PO SCH (06:00)
--- NOTE | 2021-04-19 06:17 | Diagnostic Imaging Report ---
EXAMINATION: Chest 1 view HISTORY: SOA COMPARISON: 04/03/2021 FINDINGS: Heart size and pulmonary vasculature are normal. There are patchy airspace opacities seen within the left lower lung and right midlung. No pleural effusion or pneumothorax. The osseous structures are intact. IMPRESSION: 1. Patchy opacities within the right midlung and left lower lung improved from 04/03/2021. Dictated by: Dictated on workstation # [id number]
[2021-04-19] MEDS: POTASSIUM CL 10MEQ/50ML IVPB 50 ML IV SCH (06:29)
--- NOTE | 2021-04-19 07:25 | Diagnostic Imaging Report ---
EXAMINATION: Chest 1 view HISTORY: Central line placement COMPARISON: 04/19/2021 FINDINGS: Heart size and pulmonary vasculature are normal. Increasing interstitial opacities within the mid and lower lungs compared to prior radiograph on 04/19/2021. No pleural effusion or pneumothorax. Cervical fusion hardware is better seen. The osseous structures are intact. Interval placement of a right IJ central line with the tip projecting over the SVC. IMPRESSION: 1. Right IJ central line with the tip projecting over the SVC. No pneumothorax. 2. Increasing interstitial opacities within the lower lungs. Dictated by: Dictated on workstation # [id number]
--- NOTE | 2021-04-19 09:32 | Tele-ICU Progress Note ---
Subjective Date Seen by a Provider: Apr 19, 2021 Time Seen by a Provider: 07:25 Subjective/Events-last exam This virtual visit was conducted using real time audio/video. Thank you for asking us to see this patient for septic shock due to UTI/cystitis. PE: VSS. O2 sat 99% on RA HEENT: No obvious masses, adenopathy or JVD. Chest: clear to auscultation. CV: RRR S1 S2 No murmur or added sounds. Abd: Non-tender. Bowel sounds Y. : Unremarkable. Broussard N. MOTOR TESTER/psychiatric: Grossly intact. No obvious focal findings. Extremities: Noedema. Capillary refill < 3 seconds. Skin: unremarkable. Results: Elevated WCC 17.7. Decreased Na 132, K 3.5. CXR: ? mild int chages versus poor inspiration. Available chart/ vitals / labs / images reviewed. Video A/P: Critical Care: critically ill patient. Cont. abx, wean Levo, replace K. Discussed with RN . Asked RN to reach out to eICU if any questions or concerns later. Time spent with patient/coordination of care with other health professionals (mins):20 Sepsis Event Evaluation Height, Weight, BMI Height: 6'0.00" Weight: 198lbs. 9.0oz. 90.053625ne; 20.94 BMI Method:Stated Focused Exam Lactate Level 04/18/21 23:56: Lactic Acid Level 1.63 Exam Exam Patient acknowledged, consented, and participated in this virtual visit which was conducted using real time audio/video Vital Signs Date Time Temp Pulse Resp B/P (MAP) Pulse Ox O2 Delivery O2 Flow Rate FiO2 04/19/21 08:00 36.7 04/19/21 08:00 92 24 96/57 97 Room Air 04/19/21 07:00 81 21 95/58 96 Room Air 04/19/21 07:00 83 04/19/21 06:00 82 22 102/95 93 Room Air 04/19/21 05:12 Room Air 04/19/21 05:03 80 04/19/21 05:00 78 21 97/59 100 Room Air 04/19/21 04:45 86 24 95/71 100 Room Air 04/19/21 04:30 36.2 84 22 97/63 100 Room Air 04/19/21 04:15 76 15 103/83 100 Room Air 04/19/21 03:56 37.4 73 19 100/61 94 Room Air 04/19/21 03:42 80 70/51 04/18/21 23:34 36.8 93 24 95/63 (74) 97 I & O 04/19/21 07:00 Intake Total 2750 ml Balance 2750 ml Height & Weight Height: 6'0.00" Weight: 198lbs. 9.0oz. 90.615291sa; 20.94 BMI Method:Stated General Appearance: No Apparent Distress, Chronically ill, Thin HEENT: PERRL/EOMI, Other (mucous membranes dry) Respiratory: Lungs Clear, Normal Breath Sounds Cardiovascular: Regular Rate, Rhythm, No Murmur Extremity: Non Tender, No Calf Tenderness, No Pedal Edema Neurologic/Psychiatric: Alert, Other (Only oriented to self ) Results Lab Laboratory Tests 04/18/21 23:43 04/19/21 05:00 Assessment/Plan Assessment/Plan See free text Critical Care: Critically Ill Patient ABUNDIO YOO MD Apr 19, 2021 09:32
--- NOTE | 2021-04-19 09:34 | History & Physical-Hospitalist ---
History of Present Illness HPI/Chief Complaint Patient is 80-year-old man patient is a 80-year-old male with past medical history of hypertension, qnu-fmmpltc-vetpmgyvy diabetes, hyperlipidemia who presented to the emergency department due to confusion and fever. He is unsure why he was brought to the emergency department. He tells me both that he believes it was due to Covid which it appears he had in March of this year. When asked more specifically about that he states he had Covid last summer. He also states he was brought to the hospital from physical therapy where they were unable to get his blood pressure. He then states that the physical therapist did not tell anyone about the blood pressure issues though. He then mostly complains about irritation from his catheter. Because of the varying history from the patient all information is obtained from the records. From ER note the senior care stated he was having some hallucinations and was febrile and brought in for evaluation on arrival here he was found to be hypotensive and UA was done which revealed a urinary tract infection. He continued to become hypotensive and central line was placed and he was started on pressors and admitted to the ICU. Source: patient Date Seen 04/19/21 Time Seen by a Provider: 09:22 Attending Physician Casa Deras MD PCP Live James DO Referring Physician Date of Admission Apr 19, 2021 at 03:50 Home Medications & Allergies Home Medications Reviewed patient Home Medication Reconciliation performed by pharmacy medication reconciliations pharmacy intake technician and/or nursing. Patients Allergies have been reviewed. Allergies Allergies Coded Allergies No Known Drug Allergies (Caigcteqha82/15/10) Past Vvhvsel-Fwaanc-Mjndcw Hx Patient Social History Tobacco Use?: No Use of E-Cig and/or Vaping dev: No Substance use?: No Alcohol Use?: No Immunizations Up To Date Date of Influenza Vaccine: Dec 20, 2020 First/Initial COVID19 Vaccinat: NONE Second COVID19 Vaccination Gurmeet: no PED Vaccines UTD: No Current Status Communicates: Verbally Primary Language: Georgian Preferred Spoken Language: Georgian Is interpretation needed?: No Past Medical History Hypertension Sexually Transmitted Disease: No HIV/AIDS: No Diabetes, Non-Insulin dep Glaucoma Family Medical History Reviewed Nursing Family Hx Patient reports no known family medical history. No Pertinent Family Hx Review of Systems ROS-Unable to Obtain: confusion Constitutional: see HPI, fever Psychiatric/Neurological: Other (confusion) Physical Exam Physical Exam Vital Signs Vital Signs - First Documented 04/18/21 04/19/21 23:34 03:56 Temp 36.8 Pulse 93 Resp 24 B/P (MAP) 95/63 (74) Pulse Ox 97 O2 Delivery Room Air Capillary Refill : Height, Weight, BMI Height: 6'0.00" Weight: 198lbs. 9.0oz. 90.509642an; 20.94 BMI Method:Stated General Appearance: No Apparent Distress, Chronically ill, Thin HEENT: PERRL/EOMI, Moist Mucous Membranes Neck: Normal Inspection, Supple Respiratory: Lungs Clear, No Respiratory Distress Cardiovascular: Regular Rate, Rhythm, No Murmur Gastrointestinal: Normal Bowel Sounds, Non Tender, Soft Genital/Rectal: Other (catheter in place) Extremity: No Calf Tenderness, No Pedal Edema Neurologic/Psychiatric: Alert; No Aphasia; Other (oriented to person and place) Skin: Normal Color, Warm/Dry; No Mottled Results Results/Procedures Labs Laboratory Tests 04/18/21 23:43 04/19/21 05:00 Patient resulted labs reviewed. Imaging: Reviewed Imaging Report [facility] [place] [place] NAME: DESHAWN OPE [facility] REC#: [id number] PT STATUS: ADM IN : 1940 PHYSICIAN: GIOVANI BABCOCK MD ADMIT DATE: 04/19/21/ICU Signed Date of Exam:04/19/21 CHEST 1 VIEW, AP/PA ONLY EXAMINATION: Chest 1 view HISTORY: SOA COMPARISON: 04/03/2021 FINDINGS: Heart size and pulmonary vasculature are normal. There are patchy airspace opacities seen within the left lower lung and right midlung. No pleural effusion or pneumothorax. The osseous structures are intact. IMPRESSION: 1. Patchy opacities within the right midlung and left lower lung improved from 04/03/2021. Dictated by: Dictated on workstation # [id number] Dict: 04/19/21 0611 Trans: 04/19/21 0744 [place] [id number] Interpreted by: AMMON KENNEDY DO Electronically signed by: AMMON KENNEDY DO 04/19/21 0744 [facility] NAME: DESHAWN POE MED REC#: [id number] PT STATUS: ADM IN : 1940 PHYSICIAN: GIOVANI BABCOCK MD ADMIT DATE: 04/19/21/ICU Signed Date of Exam:04/19/21 CHEST 1 VIEW, AP/PA ONLY EXAMINATION: Chest 1 view HISTORY: Central line placement COMPARISON: 04/19/2021 FINDINGS: Heart size and pulmonary vasculature are normal. Increasing interstitial opacities within the mid and lower lungs compared to prior radiograph on 04/19/2021. No pleural effusion or pneumothorax. Cervical fusion hardware is better seen. The osseous structures are intact. Interval placement of a right IJ central line with the tip projecting over the SVC. IMPRESSION: 1. Right IJ central line with the tip projecting over the SVC. No pneumothorax. 2. Increasing interstitial opacities within the lower lungs. Dictated by: Dictated on workstation # [id number] Dict: 04/19/2113 Trans: 04/19/21 [address] [facility] [id number] Interpreted by: AMMON KENNEDY DO Electronically signed by: AMMON KENNEDY DO 04/19/21 0744 Assessment/Plan Admission Diagnosis Septic Shock Admission Status: Inpatient Order (span 2 midnights) Reason for Inpatient Admission: see below Assessment and Plan Septic Shock UTI UA consistent with UTI Hypotensive requring pressors Continue Rocephin Await cultures HTN HLD NIDDMII Hold home meds as BP on low end of normal and BS well controlled SSI if needed for BS Appears to fill Plavix and ASA on med rec, unsure of indication will resume if accurate Macrocytic anemia Follows with Dr Ferro for this Hgb stable from end of march, trend R ground wound Follows with Dr Arita Will resume Santyl per Dr Arita last note form 3/2 Vitamin D defiency Resume Vitamin D when med rec done Hyponatremia Appears chronic as present in 2014 Trend CASA DERAS MD Apr 19, 2021 09:34
[2021-04-19] MEDS ORDERED: ENOXAPARIN 40 MG/0.4 ML (LOVENOX) SYR SQ SCH (10:30)
[2021-04-19 15:28] VITALS: BP 92/55
[2021-04-19] MEDS ORDERED: HYDROcodone/APAP 5 MG/325 MG (LORTAB) TAB ONE (20:55)
[2021-04-19] MEDS ORDERED: COLLAGENASE 30 GM (SANTYL) TUBE TP SCH (21:00)
[2021-04-19] MEDS ORDERED: AtorvaSTATin TABLET 10 MG TABLET PO SCH (21:00)
[2021-04-19] MEDS ORDERED: HYDROcodone/APAP 5 MG/325 MG (LORTAB) TAB PO PRN (21:00)
[2021-04-19] MEDS ORDERED: LIDOCAINE UROJET 2% GEL 10 ML PKG ONE (21:56)
[2021-04-19] MEDS ORDERED: LORazepam INJ 2 MG/ML (ATIVAN) VIAL IVP STA (22:04)
[2021-04-19] MEDS ORDERED: LORazepam INJ 2 MG/ML (ATIVAN) VIAL ONE (22:06)
[2021-04-19 23:05] LABS: ABG BASE EXCESS -25.5 MMOL/L (-2.5-2.5); ABG OXYGEN SATURATION 99 % (94-100); ABG PO2 345 MMHG (79-93)
[2021-04-19 23:07] LABS: PATIENT TEMP 36.7
[2021-04-19 23:08] LABS: ABG PCO2 10 MMHG (35-45); ABG TCO2 3.3 MMOL/L (21.0-31.0)
[2021-04-19] MEDS ORDERED: SODIUM BICARB 8.4% 50 MEQ/50 ML (ABBOTT) SYR INJ ONE (23:31)
[2021-04-19] MEDS ORDERED: CALCIUM CHLORIDE 1 GM/10 ML (IMS) SYR INJ ONE (23:31)
[2021-04-19] MEDS ORDERED: ETOMIDATE IV SOLN 20 MG/10 ML VIAL IV ONE (23:31)
[2021-04-19] MEDS ORDERED: SUCCINYLCHOLINE INJ 100 MG/5 ML SYR/VIAL INJ ONE (23:31)
[2021-04-19] MEDS ORDERED: EPINEPHrine 0.1 MG/ML 10 ML (HOSPIRA) SYR IJ ONE (23:31)
[2021-04-19] MEDS ORDERED: LIDOCAINE BOLUS 100 MG/5 ML (IMS) SYR INJ ONE (23:31)
[2021-04-19] MEDS ORDERED: CATHETER FLUSH 10 ML SYR IVP ONE (23:31)
--- NOTE | 2021-04-19 23:37 | Discharge Summary ---
Discharge Summary Date of Admission Apr 19, 2021 at 03:50 Date of Discharge Admission Diagnosis Septic Shock Comfort Measures/ Patient was admitted to the hospital secondary to septic shock from a urinary tract infection. He was treated with IV antibiotics and initially had some improvement but had worsening respiratory status and preparations were being made for intubation when he suffered a cardiac arrest. He had multiple different rhythms throughout his cardiac arrest. He was shocked for both V. tach and V. fib he had a very brief return of spontaneous circulation but lost his pulse again and suffered from a PEA arrest at that time. He was treated w ith multiple doses of epinephrine, lidocaine, CPR with high-quality compressions. Despite roughly 30 minutes of CODE BLUE with ACLS protocol he remained pulseless and code was called. Family arrived to bedside shortly afterwards and all questions were answered. Discharge Diagnosis Septic Shock UTI HTN HLD NIDDMII Macrocytic anemia R ground wound Vitamin D defiency Hyponatremia Copy Copies To 1: MINESH WEISS KATELYN M MD Apr 19, 2021 23:36
[2021-04-20] MEDS ORDERED: cefTRIAXone 1 GM IV (PRE-MIX) 50 ML IV SCH (02:00)
--- NOTE | 2021-04-20 05:11 | Inpatient Code Blue ---
General Chief Complaint: Altered Mental Status Stated Complaint: SEVERE SEPSIS W/HYPOTENSION,UTI Nursing Triage Note: pt to room by cristina dietrich ems from [facility]. ems reports pt had altered mental status at [facility], fever, and pressure wound issues Source: RN/MD Exam Limitations: clinical condition History of Present Illness Date Seen by Provider: Apr 19, 2021 Time Seen by Provider: 23:05 Initial Comments Called emergently to ICU for CODE BLUE in progress with CPR. Patient is admitted for septic shock. Apparently he was having respiratory issues and was being placed on BiPAP pending intubation when patient became unresponsive with V. fib on the monitor. He had CPR and epinephrine as well as shock and still without pulse. Patient was seen by me last night and admitted with septic shock on Levophed drip. Timing/Duration: just prior to arrival Severity: severe Associated Symptoms: shortness of breath Allergies and Home Medications Allergies Coded Allergies: No Known Drug Allergies (Unverified , 01/22/10) Patient Home Medication List Home Medication List Reviewed: Yes Amoxicillin/Potassium Clav (Amox Tr-K Clv 875-125 mg Tab) 1 Each Tablet, 875 MG PO BID WITH MEALS Prescribed by: JUJU SMALLS on 04/10/21 113 Atorvastatin Calcium (Atorvastatin Calcium) 10 Mg Tablet, 10 MG PO HS Prescribed by: JUJU SMALLS on 04/10/21 113 Clopidogrel Bisulfate (Clopidogrel) 75 Mg Tablet, 75 MG PO DAILY Prescribed by: JUJU SMALLS on 04/10/21 113 Docusate Sodium (Docusate Sodium) 100 Mg Capsule, 100 MG PO BID Prescribed by: JUJU SMALLS on 04/10/21 113 Folic Acid (Folic Acid) 1 Mg Tablet, 1 MG PO DAILY Prescribed by: JUJU SMALLS on 04/10/21 113 Glimepiride (Glimepiride) 2 Mg Tablet, 2 MG PO DAILY Prescribed by: JUJU SMALLS on 04/10/21 113 Sennosides/Docusate Sodium (Stool Softener-Laxative Tablet) 1 Each Tablet, 1 EA PO BID Prescribed by: JUJU SMALLS on 04/10/21 113 Vitamin D (Vitamin D3) 10 Mcg Tablet, 10 MCG PO DAILY@0700 Prescribed by: JUJU SMALLS on 04/10/21 113 Physical Exam Vital Signs Vital Signs - First Documented 04/18/21 04/19/21 04/19/21 23:34 03:56 22:05 Temp 36.8 Pulse 93 Resp 24 B/P (MAP) 95/63 (74) Pulse Ox 97 O2 Delivery Room Air O2 Flow Rate 15.00 Capillary Refill : Less Than 3 Seconds Height, Weight, BMI Height: 6'0.00" Weight: 198lbs. 9.0oz. 90.251878xp; 20.94 BMI Method:Stated General Appearance: severe distress, other (CPR in progress and patient unresponsive. Ventilation via bag valve mask) Respiratory: crackles (Bilateral noted after intubation), other (Evaluation via [id number]) Cardiovascular: other (Ventricular fibrillation and/or ventricular tachycardia noted on monitor) Skin: cool, pallor Procedures/Interventions Lumen: triple Central Line Procedure: betadine prep, sterile drapes applied, sterile dressing applied Position: internal jugular (R) Anesthesia: Lidocaine Volume Anesthetic (ccs): 5 Complications: none Post Position: sutured, good blood return, position confirmed w/ CXR Date of ETT Placement: Apr 19, 2021 Time of ETT Placement: 2319 Intubation Method: orotracheal Positive End Tide CO2: Yes Breath Sounds after Intubation: bilateral-equal Intubation Complications: no complications Post Intubation Xray: No Tube visualized through the cords with glide scope. 7.5 ET tube placed x1 attempt without complication. Ballon up. Airway secured by RT. 24 cm at the lip. Good breath sounds bilateral although with some crackles. No chest x-ray as code was called before chest x-ray obtained. Critical Care Note Critical Care Start Time: 23:32 Stop Time: 03:58 Progress/Results/Core Measures Results/Orders Lab Results Laboratory Tests Test 04/18/21 23:43 04/18/21 23:49 04/18/21 23:56 04/19/21 01:20 Range/Units White Blood Count 15.1 H 4.3-11.0 10^3/uL Red Blood Count 2.96 L 4.30-5.52 10^6/uL Hemoglobin 10.3 L 13.3-17.7 g/dL Hematocrit 30 L 40-54 % Mean Corpuscular Volume 101 H 80-99 fL Mean Corpuscular Hemoglobin 35 H 25-34 pg Mean Corpuscular Hemoglobin Concent 34 32-36 g/dL Red Cell Distribution Width 17.8 H 10.0-14.5 % Platelet Count 197 130-400 10^3/uL Mean Platelet Volume 11.8 9.0-12.2 fL Immature Granulocyte % (Auto) 1 % Neutrophils (%) (Auto) 58 42-75 % Lymphocytes (%) (Auto) 39 12-44 % Monocytes (%) (Auto) 2 0-12 % Eosinophils (%) (Auto) 0 0-10 % Basophils (%) (Auto) 0 0-10 % Neutrophils # (Auto) 8.9 H 1.8-7.8 10^3/uL Lymphocytes # (Auto) 5.8 H 1.0-4.0 10^3/uL Monocytes # (Auto) 0.4 0.0-1.0 10^3/uL Eosinophils # (Auto) 0.0 0.0-0.3 10^3/uL Basophils # (Auto) 0.0 0.0-0.1 10^3/uL Immature Granulocyte # (Auto) 0.1 0.0-0.1 10^3/uL Neutrophils % (Manual) 70 % Lymphocytes % (Manual) 19 % Monocytes % (Manual) 1 % Band Neutrophils 10 % Basophilic Stippling SLIGHT Macrocytosis SLIGHT Prothrombin Time 17.1 H 12.2-14.7 SEC INR Comment 1.4 0.8-1.4 Activated Partial Thromboplast Time 46 H 24-35 SEC Sodium Level 127 L 135-145 MMOL/L Potassium Level 3.9 3.6-5.0 MMOL/L Chloride Level 99 98-107 MMOL/L Carbon Dioxide Level 13 L 21-32 MMOL/L Anion Gap 15 H 5-14 MMOL/L Blood Urea Nitrogen 12 7-18 MG/DL Creatinine 0.77 0.60-1.30 MG/DL Estimat Glomerular Filtration Rate 91 BUN/Creatinine Ratio 16 Glucose Level 97 70-105 MG/DL Calcium Level 8.5 8.5-10.1 MG/DL Corrected Calcium 9.1 8.5-10.1 MG/DL Total Bilirubin 2.4 H 0.1-1.0 MG/DL Aspartate Amino Transf (AST/SGOT) 35 H 5-34 U/L Alanine Aminotransferase (ALT/SGPT) 16 0-55 U/L Alkaline Phosphatase 78 40-136 U/L C-Reactive Protein High Sensitivity 4.83 H 0.00-0.50 MG/DL Total Protein 6.4 6.4-8.2 GM/DL Albumin 3.3 3.2-4.5 GM/DL Procalcitonin 1.21 H <0.10 NG/ML Glucometer 97 70-110 MG/DL Lactic Acid Level 1.63 0.50-2.00 MMOL/L Urine Color YELLOW Urine Clarity CLEAR Urine pH 6.0 5-9 Urine Specific [place] 1.015 L 1.016-1.022 Urine Protein TRACE H NEGATIVE Urine Glucose (UA) NEGATIVE NEGATIVE Urine Ketones 1+ H NEGATIVE Urine Nitrite NEGATIVE NEGATIVE Urine Bilirubin NEGATIVE NEGATIVE Urine Urobilinogen 1.0 < = 1.0 MG/DL Urine Leukocyte Esterase 1+ H NEGATIVE Urine RBC (Auto) TRACE-I H NEGATIVE Urine RBC 0-2 /HPF Urine WBC 10-25 H /HPF Urine Squamous Epithelial Cells 0-2 /HPF Urine Crystals NONE /LPF Urine Bacteria LARGE H /HPF Urine Casts NONE /LPF Urine Mucus NEGATIVE /LPF Urine Culture Indicated CULTURE PENDING Test 04/19/21 05:00 04/19/21 22:55 Range/Units White Blood Count 17.7 H 4.3-11.0 10^3/uL Red Blood Count 2.73 L 4.30-5.52 10^6/uL Hemoglobin 9.5 L 13.3-17.7 g/dL Hematocrit 28 L 40-54 % Mean Corpuscular Volume 103 H 80-99 fL Mean Corpuscular Hemoglobin 35 H 25-34 pg Mean Corpuscular Hemoglobin Concent 34 32-36 g/dL Red Cell Distribution Width 18.1 H 10.0-14.5 % Platelet Count 214 130-400 10^3/uL Mean Platelet Volume 11.5 9.0-12.2 fL Immature Granulocyte % (Auto) 0 % Neutrophils (%) (Auto) 52 42-75 % Lymphocytes (%) (Auto) 34 12-44 % Monocytes (%) (Auto) 13 H 0-12 % Eosinophils (%) (Auto) 0 0-10 % Basophils (%) (Auto) 0 0-10 % Neutrophils # (Auto) 9.2 H 1.8-7.8 10^3/uL Lymphocytes # (Auto) 6.0 H 1.0-4.0 10^3/uL Monocytes # (Auto) 2.4 H 0.0-1.0 10^3/uL Eosinophils # (Auto) 0.0 0.0-0.3 10^3/uL Basophils # (Auto) 0.0 0.0-0.1 10^3/uL Immature Granulocyte # (Auto) 0.1 0.0-0.1 10^3/uL Sodium Level 132 L 135-145 MMOL/L Potassium Level 3.5 L 3.6-5.0 MMOL/L Chloride Level 104 98-107 MMOL/L Carbon Dioxide Level 12 L 21-32 MMOL/L Anion Gap 16 H 5-14 MMOL/L Blood Urea Nitrogen 10 7-18 MG/DL Creatinine 0.75 0.60-1.30 MG/DL Estimat Glomerular Filtration Rate 92 BUN/Creatinine Ratio 13 Glucose Level 137 H 70-105 MG/DL Calcium Level 8.4 L 8.5-10.1 MG/DL Blood Gas Puncture Site UNKNOWN Blood Gas Patient Temperature 36.7 Arterial Blood pH 7.10 *L 7.37-7.43 Arterial Blood Partial Pressure CO2 10 *L 35-45 MMHG Arterial Blood Partial Pressure O2 345 H 79-93 MMHG Arterial Blood HCO3 3 *L 23-27 MMOL/L Arterial Blood Total CO2 3.3 *L 21.0-31.0 MMOL/L Arterial Blood Oxygen Saturation 99 94-100 % Arterial Blood Base Excess -25.5 L -2.5-2.5 MMOL/L Rodrick Test UNKNOWN Blood Gas Ventilator Setting NA Blood Gas Inspired Oxygen UNKNOWN Micro Results Microbiology 04/19/21 Blood Culture - Preliminary, Resulted No growth 04/18/21 Blood Culture - Preliminary, Resulted No growth My Orders Orders - GIOVANI BABCOCK MD Cbc With Automated Diff (04/18/21 23:50) Comprehensive Metabolic Panel (04/18/21 23:50) Blood Culture (04/18/21 23:50) Sputum Culture (04/18/21 23:50) Urinalysis (04/18/21 23:50) Urine Culture (04/18/21 23:50) Protime With Inr (04/18/21 23:50) Partial Thromboplastin Time (04/18/21 23:50) Ed Iv/Invasive Line Start (04/18/21 23:50) Vital Signs Adult Sepsis Patie Q15M (04/18/21 23:50) O2 (04/18/21 23:50) Remove Rings In Anticipation O (04/18/21 23:50) Lactic Acid Analyzer (04/18/21 23:50) Lactated Ringers (Lr 1000 Ml Iv Solution (04/18/21 23:50) Manual Differential (04/18/21 23:43) Chest 1 View, Ap/Pa Only (04/19/21 00:01) Ns Iv 500 Ml (Sodium Chloride 0.9%) (04/19/21 00:45) Hydrocodone/Apap 5/325 Tablet (Lortab 5 (04/19/21 00:45) Hs C Reactive Protein (04/19/21 00:52) Procalcitonin (Pct) (04/19/21 00:52) Lactated Ringers (Lr 1000 Ml Iv Solution (04/19/21 01:40) Ceftriaxone 1 Gm Pre-Mix (Rocephin 1 Gm (04/19/21 01:50) Chest 1 View, Ap/Pa Only (04/19/21 03:27) Norepinephrine 8 Mg/250 Ml (Norepinephri (04/19/21 03:30) Ns Iv 500 Ml (Sodium Chloride 0.9%) (04/19/21 03:30) Medications Given in ED Current Medications Medications Dose Ordered Sig/Alhaji Route Start Time Stop Time Status Last Admin Dose Admin Acetaminophen/ Hydrocodone Bitart 1 ea Q4H PRN PO 04/19/21 21:00 04/20/21 01:46 DC 04/19/21 20:57 1 EA Lidocaine HCl 10 ml STK-MED ONCE .ROUTE 04/19/21 21:56 04/19/21 21:58 DC 04/19/21 21:56 10 ML Vital Signs/I&O 04/18/21 04/19/21 04/19/21 04/19/21 23:34 03:42 03:56 04:15 Temp 36.8 37.4 Pulse 93 80 73 76 Resp 24 19 15 B/P (MAP) 95/63 (74) 70/51 100/61 103/83 Pulse Ox 97 94 100 O2 Delivery Room Air Room Air 04/19/21 04/19/21 04/19/21 04/19/21 04:30 04:45 05:00 05:03 Temp 36.2 Pulse 84 86 78 80 Resp 22 24 21 B/P (MAP) 97/63 95/71 97/59 Pulse Ox 100 100 100 O2 Delivery Room Air Room Air Room Air 04/19/21 04/19/21 04/19/21 04/19/21 05:12 06:00 07:00 07:00 Pulse 82 83 81 Resp 21 B/P (MAP) 102/95 95/58 Pulse Ox 93 96 O2 Delivery Room Air Room Air Room Air 04/19/21 04/19/21 04/19/21 04/19/21 08:00 08:00 08:00 09:00 Temp 36.7 Pulse 92 81 Resp 24 15 B/P (MAP) 96/57 95/63 Pulse Ox 97 98 99 O2 Delivery Room Air Room Air Room Air 04/19/21 04/19/21 04/19/21 04/19/21 10:00 11:00 11:55 12:00 Temp 36.6 Pulse 75 75 Resp 11 B/P (MAP) 97/57 96/60 Pulse Ox 98 98 98 O2 Delivery Room Air Room Air Room Air 04/19/21 04/19/21 04/19/21 04/19/21 12:00 13:00 13:00 14:00 Pulse 73 75 72 69 Resp 36 13 17 B/P (MAP) 92/56 91/55 90/55 Pulse Ox 98 98 99 O2 Delivery Room Air Room Air Room Air 04/19/21 04/19/21 04/19/21 04/19/21 15:00 15:28 16:00 16:00 Pulse 67 71 80 Resp 16 10 B/P (MAP) 91/55 92/55 87/50 Pulse Ox 96 93 98 O2 Delivery Room Air Room Air Room Air 04/19/21 04/19/21 04/19/21 04/19/21 17:00 18:00 19:00 19:00 Pulse 78 91 102 103 Resp 22 14 22 B/P (MAP) 90/56 95/64 94/62 Pulse Ox 94 89 O2 Delivery Room Air Room Air Room Air 04/19/21 04/19/21 04/19/21 04/19/21 19:41 20:00 20:00 21:00 Temp 37.6 Pulse 96 117 Resp 29 34 B/P (MAP) 101/56 88/65 Pulse Ox 100 98 85 O2 Delivery Room Air Room Air Room Air 04/19/21 04/19/21 04/19/21 04/20/21 22:00 22:05 22:50 00:40 Pulse 126 127 Resp 43 46 B/P (MAP) 96/63 Pulse Ox 95 55 O2 Delivery Room Air OxyMask NIV Bilevel O2 Flow Rate 15.00 100.00 100.00 04/20/21 00:00 Intake Total 800 ml Output Total 725 ml Balance 75 ml Blood Pressure Mean: 74 FSBG Bedside Testing Finger Stick Blood Glucose: 97 Blood Glucose Action Taken: DOC AND RN NOTIFIED Progress Progress Note : Progress Note On arrival to ICU room 4, CPR in progress. Epinephrine given. Patient apparently had V. fib and was shocked. Repeat pulse check shows ventricular fibrillation and shock was done. Lidocaine 100 mg IV given. Epinephrine given every 5 minutes. 2309, pulse checks noted V. tach without pulse. Patient was shocked and epinephrine was given. Repeat pulse check after showed PEA. We did initiate normal saline bolus. Dr. Deras was notified and is in route. 2315, pulse check did note return of spontaneous circulation with heart rate 85. We did restart norepinephrine at previous dosing. 2318: CPR was resumed is pulse was lost. 2320: Patient was intubated via glide scope x1 attempt with good breath sounds bilateral. CPR was continued. Next pulse check showed ventricular tachycardia. We did give 1 amp of calcium as well as another 100 mg of lidocaine. 2325: Patient in ventricular fibrillation and shocked was done. Epi 1 mg IV infused. 2330: We have given sodium bicarb and patient has been in PEA or wide-complex rhythm that is agonal at times and tachycardic at times. We have repeated epinephrine and shocked with no pulse. Dr. Deras is in the room and we have discussed the case and management and she has comanage the patient for the last several months after intubation. Patient remains in pulseless rhythm without improvement despite all efforts. Code called at 233 with time of at [address] Deras at bedside managing patient. All in agreement for discontinuation of efforts. eICU on board and agrees. GIOVANI BABCOCK MD Apr 20, 2021 05:11
== END 2021-04-19 23:32 | disposition expired | DRG 871 ==
LOC: EDUNIT# 23:26 → ER 23:30 → ICU 04-19 03:50
PROVIDERS: ADMIT Family Medicine; ATTEND Family Medicine
PROC: 5A12012 Performance of Cardiac Output, Single, Manual (ICD-10-PCS; principal; 2021-04-19)
PROC: 02HV33Z Insertion of Infusion Device into Superior Vena Cava, Percutaneous Approach (ICD-10-PCS; 2021-04-19)
PROC: 5A09357 Assistance with Respiratory Ventilation, Less than 24 Consecutive Hours, Continuous Positive Airway Pressure (ICD-10-PCS; 2021-04-19)
DX: A41.9 Sepsis, unspecified organism (principal); R65.21 Severe sepsis with septic shock; N39.0 Urinary tract infection, site not specified; E87.1 Hypo-osmolality and hyponatremia; I49.01 Ventricular fibrillation; I46.9 Cardiac arrest, cause unspecified; I10 Essential (primary) hypertension; E11.9 Type 2 diabetes mellitus without complications; D64.9 Anemia, unspecified; E55.9 Vitamin D deficiency, unspecified; E78.00 Pure hypercholesterolemia, unspecified; H40.9 Unspecified glaucoma; S31.109D Unspecified open wound of abdominal wall, unspecified quadrant without penetration into peritoneal cavity, subsequent encounter
CPT/HCPCS: 36415; 71045; 80048; 80053; 81000; 82805; 82947; 83605; 84145; 85007; 85025; 85027; 85610; 85730; 86141; 87040; 87077; 87081; 87088